=== PATIENT | female | born 1930 | race Caucasian/White ===

== ENCOUNTER 2019-03-21 21:18 | Inpatient (IN) ==
[2019-03-21] MEDS ORDERED: Aspirin 81 MG TAB.CHEW PO STA (21:30)
--- NOTE | 2019-03-21 21:31 | Emergency Department Note ---
Disposition Clinical Impression: Non-STEMI (non-ST elevated myocardial infarction) Disposition: Admitted As Inpatient Condition: Fair Time of Disposition: 02:41 Chest Pain HPI - General Chief Complaint: ED Chest Pain Stated Complaint: CHEST PAIN Time Seen by Provider: 03/21/19 21:29 Source: patient, family Mode of arrival: ambulatory Limitations: no limitations Nursing Notes Reviewed: Yes - History of Present Illness HPI Narrative: 88-year-old female past medical history of thyroid disease, cardiac bypass, cardiac catheterization at this facility one year ago by Dr. Sonia Salinas has been experiencing intermittent chest pain since her cardiac catheterization states that she is now experiencing the worst chest pain that she has ever felt, noted that she had chest pain last night which spontaneously resolved but said 3 recurring episodes today and current episode for the past 2 hours 10 out of 10 substernal sharp chest pain radiating into bilateral upper extremities associated with shortness of breath lightheadedness and dizziness and headache. Patient states the headache and dizziness has since subsided but the chest pain is unrelenting. Patient states she has noticed shortness of breath the past 2 days specifically with exertion. Patient has had no recent illnesses, she states she felt nausea earlier but did not vomit, patient took an 81 mg aspirin prior to presentation to ED but did not take nitroglycerin. No other concerns or complaints at this time. Pt complaint: chest pain Onset (ago): hour(s) Duration: constant Onset: during rest Pain Location: substernal Severity: severe Severity scale (1-10): 10 Quality: sharp Pain Radiation: RUE, LUE Improves with: nothing Worsens with: exertion Associated symptoms: Reports: nausea, diaphoresis, dyspnea Treatments prior to arrival chest pain: aspirin - Related Data Home Medications Medication Instructions Recorded Confirmed Alprazolam [Xanax] 0.5 mg PO DAILY PRN 09/13/15 03/22/19 Aspirin [Adult Low Dose Aspirin EC] 81 mg PO DAILY 09/13/15 03/22/19 Esomeprazole Magnesium [Nexium] 40 mg PO DAILY 09/13/15 03/22/19 Furosemide [Lasix] 20 mg PO DAILY PRN 09/13/15 03/22/19 Levothyroxine [Synthroid] 50 mcg PO 0630 09/13/15 03/22/19 Previous Rx's Medication Instructions Recorded Carvedilol [Coreg] 6.25 mg PO BIDWM #60 tablet 12/17/15 Clopidogrel [Plavix] 75 mg PO DAILY #30 tablet 09/14/15 Lisinopril [Zestril] 40 mg PO DAILY tablet 09/14/15 Allergies Allergy/AdvReac Type Severity Reaction Status Date / Time Tetanus Vaccines and Toxoid Allergy Anaphylaxis Verified 08/29/15 09:08 [Tetanus Vaccines & Toxoid] venom-honey bee Allergy Anaphylaxis Verified 08/29/15 09:08 [bee venom (honey bee)] atorvastatin [From Lipitor] AdvReac Muscle Pain Verified 09/13/15 08:54 Review of Systems: *See History of Present Illness for more detail Constitutional: Denies: fever, chills Cardiovascular: Admits: chest pain with radiation to bilateral upper extremities. Respiratory: Admits: dyspnea denies: cough, hemoptysis Gastrointestinal: Admits to recent nausea Denies: abdominal pain, vomiting Musculoskeletal: Denies: back pain, neck pain Neurological: Denies: headache, weakness, lightheadedness/dizziness, numbness, paresthesias, difficulty with ambulation. Endocrine: Denies: fatigue All systems ED: reviewed and negative except as stated. Review of Systems: As Per HPI Chest Pain PMH - Past Medical History Medical history: Reports: arthritis, coronary artery disease, hyperlipidemia, hypertension, thyroid disease Surgical history: Reports: coronary bypass (CABG) Psychiatric history: Reports: no psych history - Social History Smoking Status: Former smoker Alcohol use: Reports: none Drug use: Reports: none Physical Exam Constitutional: Patient is in moderate distress due to pain, otherwise she is [id number], engaged to conversation, speech is fluid, answers questions appropriately Neuro: GCS 15, no overt focal neurological deficits Head: Atraumatic, normocephalic Eyes: Pupils equal, round and reactive to light, no scleral icterus, no conjunctival injection Neck: Trachea midline without deviation. Anterior neck is supple without swelling. *Chest: Symmetric chest wall rise *Heart: Cardiac rhythm and rate are regular with S1 and S2 , no S3 or S4 appreciated, no murmurs, gallops, rubs, or clicks. *Lungs: Lungs are clear to auscultation bilaterally, without accessory muscle use or prolonged expiratory phase. No wheezes, rhonchi or stridor appreciated. Abdomen: Abdomen is flat, soft to palpation, normal bowel sounds. No abdominal bruit auscultated. Non-distended, non-rigid, no organomegaly, no ascites appreciated. No pulsatile mass, no tenderness or guarding to palpation in all four quadrants, no rebound Extremities: Normal capillary refill without evidence of pedal edema, joint swelling or erythema. Pulses/motor intact in all 4 extremities. Psychiatric exam: Patient displays a normal affect and mood for the environment. No overt signs of hallucination. Integumentary: warm, dry, intact, normal color. No rash, cyanosis, diaphoresis, erythema, or pallor - General Limitations: no limitations General appearance: alert, in distress Course Course Narrative: Patient heart score is 8 at baseline Concern for ACS, CBC, BMP, chest x-ray, troponin, EKG/old EKG Treatments: Aspirin and nitroglycerin for cardiac prophylaxis and management of patient's pain. We will give further pain medications for unrelenting pain or headache associated with nitroglycerin administered. - Reevaluation(s) Reevaluation #1: Patient found to have elevated troponin 0.21 Patient was given 3 nitroglycerin in the ED with significant relief for her pain from 10 out of 10-5 out of 10 Patient states that pain gradually became 10 out of 10 again Patient states pain is now radiating to her back. We will give 0.[address] dissection study with orders for low-dose heparin pending negative dissection study. Time: 22:32 Vital Signs Temperature 98 F 03/21/19 21:23 Pulse Rate 66 03/21/19 21:23 Respiratory Rate 16 03/21/19 21:23 Blood Pressure 188/82 03/21/19 21:23 O2 Sat by Pulse Oximetry 99 03/21/19 21:23 Temperature 97.7 F 03/22/19 02:11 Pulse Rate 76 03/22/19 02:11 Respiratory Rate 18 03/22/19 02:11 Blood Pressure 153/90 03/22/19 02:11 O2 Sat by Pulse Oximetry 92 03/22/19 02:11 Oxygen Delivery Oxygen Delivery Room Air Chest Pain - MDM Narrative Medical decision making narrative: Patient heart score is 10 Patient with elevated troponin having NSTEMI. EKG, laboratory and imaging results are otherwise unremarkable for acute pathology. Patient started on nitroglycerin and heparin drip in the ED Patient will be admitted to hospital medicine service for further evaluation and management of non-ST segment elevated myocardial infarction. Patient and her family at bedside verbalized understanding and agreement of this plan. The patient is hemodynamically stable time of admission. - Lab Data Lab results reviewed: Yes I reviewed the patient's lab results. Result diagrams: 03/21/19 21:35 03/21/19 21:35 Lab Results 03/21/19 03/21/19 03/21/19 Range/Units 21:35 21:35 21:35 WBC 8.6 (4.3-11.1) K/mcL RBC 3.93 (3.82-4.97) M/mcL Hgb 12.4 (11.5-15.4) g/dL Hct 37.7 (35.3-44.9) % MCV 95.9 (83.0-100.0) fL MCH 31.6 (28.0-33.3) pg MCHC 32.9 (31.6-35.5) g/dL RDW 12.6 (11.5-14.5) % Plt Count 219 (140-400) K/mcL MPV 12.2 (9.4-12.4) fL Immature Gran % 0.2 (0-4) % Seg Neutrophils % 56.0 % Lymphocytes % 31.7 % Monocytes % 8.9 % Eosinophils % 2.1 % Basophils % 1.1 % Neutrophils # 4.8 (1.6-8.9) K/mcL Lymphocytes # 2.7 (0.6-4.6) K/mcL Monocytes # 0.8 (0.0-1.3) K/mcL Eosinophils # 0.2 (0.0-0.6) K/mcL Basophils # 0.1 (0.0-0.2) K/mcL PT 11.8 (9.4-12.1) Seconds INR 1.0 Heparin Anti-Xa, Unfract 0.01 L (0.30-0.70) IU/mL Sodium 144 (136-145) mEq/L Potassium 3.3 L (3.5-5.1) mEq/L Chloride 107 (98-107) mEq/L Carbon Dioxide 28 (23-29) mEq/L BUN 17 (8-23) mg/dL Creatinine 1.04 (0.60-1.20) mg/dL Est GFR ( Amer) > 60 (> 60) Est GFR (Non-Af Amer) 50 L (> 60) BUN/Creatinine Ratio 16 (6-26) Glucose 119 H (70-105) mg/dL Calculated Osmolality 301 H (280-300) Calcium 9.9 (8.6-10.3) mg/dL Troponin I 0.21 H* (< 0.04) ng/mL - Radiology Data Radiology results reviewed: Yes I reviewed the patient's radiology results. Chest X-Ray 03/21/19 21:30 IMPRESSION: No acute disease. Hiatal hernia. D/ / Cyril Salas MD / Cyril Salas MD Interpreting Provider: Cyril Salas MD Dissection 03/21/19 22:30 IMPRESSION: No evidence of aortic dissection or aneurysm. There is mild atherosclerotic plaque in the thoracic aorta and abdominal aorta not unusual for a patient of this age. Cholelithiasis and choledocholithiasis. There are 3 small adjacent calculi in a linear configuration in the distal common bile duct. The gallbladder is moderately dilated. There is minimal bile duct dilatation. Follow-up ERCP would be helpful. Large hiatal hernia. Status post CABG. D/ / Charles Goodson MD / Charles Goodson MD Interpreting Provider: Charles Goodson MD - EKG Data EKG attestation: Yes I reviewed and interpreted this EKG. EKG results narrative: The patient's EKG shows a sinus rhythm with a prolonged CA interval at a heart rate with computer evaluation of 66 bpm, CA interval of 300 ms, QRS duration 86 ms, QT/QTc interval 422/443 ms respectively, there are significant ST segment depressions noted in lead V2 which appear isolated to this lead but are at least 2-3 mm in depth, there are no reciprocal ST segment depressions, there are no pathologic Q waves, there are abnormal T-wave inversions noted in lead 3, which may be a normal variant and appear to be consistent with prior EKG. EKG p erformed today is generally consistent with prior EKG performed on 09/13/2011. Due to concern of improper lead placement we will repeat this EKG. Repeat EKG shows sinus rhythm, the ST segment depressions in V3 are resolved and this new EKG, all other factors are consistent with those documents above, still no signs of acute ischemic change. Heart Score - Score History: Highly Suspicious EKG: Significant ST-Depression Age: Greater than 65 Risk Factors: Equal/Greater than 3 risk factor or history of atherosclerotic disease Troponin: Greater than 3x normal limit HEART Score Total: 10
[2019-03-21 21:47] LABS: Basophils # 0.1 K/mcL (0.0-0.2); Basophils % 1.1 %; Eosinophils # 0.2 K/mcL (0.0-0.6); Eosinophils % 2.1 %; Hematocrit 37.7 % (35.3-44.9); Hemoglobin 12.4 g/dL (11.5-15.4); Immature Granulocytes % 0.2 % (0-4); Lymphocytes # 2.7 K/mcL (0.6-4.6); Lymphocytes % 31.7 %; Mean Corpuscular HGB Conc 32.9 g/dL (31.6-35.5); Mean Corpuscular Hemoglobin 31.6 pg (28.0-33.3); Mean Corpuscular Volume 95.9 fL (83.0-100.0); Mean Platelet Volume 12.2 fL (9.4-12.4); Monocytes # 0.8 K/mcL (0.0-1.3); Monocytes % 8.9 %; Neutrophils # 4.8 K/mcL (1.6-8.9); Platelet Count 219 K/mcL (140-400); Red Blood Count 3.93 M/mcL (3.82-4.97); Red Cell Distribution Width 12.6 % (11.5-14.5); White Blood Count 8.6 K/mcL (4.3-11.1)
[2019-03-21 21:54] LABS: Prothrombin Time 11.8 Seconds (9.4-12.1)
[2019-03-21] MEDS: Nitroglycerin 0.4 MG TAB.SUBL SL SCH ×3 (22:00→22:10)
[2019-03-21 22:09] LABS: BUN/Creatinine Ratio 16 (6-26); Blood Urea Nitrogen 17 mg/dL (8-23); Calcium 9.9 mg/dL (8.6-10.3); Carbon Dioxide 28 mEq/L (23-29); Chloride 107 mEq/L (98-107); Glucose 119 mg/dL (70-105); Osmolality,Calculated 301 (280-300); Potassium 3.3 mEq/L (3.5-5.1); Sodium 144 mEq/L (136-145); eGFR For African Americans > 60 (> 60); eGFR For Non-African Americans 50 (> 60)
[2019-03-21 22:16] LABS: Troponin I 0.21 ng/mL (< 0.04)
[2019-03-21] MEDS ORDERED: *HR* Heparin 5,000 UNIT/ML VIAL IVP PRN ×2 (22:30)
[2019-03-21] MEDS ORDERED: Isovue-370 500 ML BOTTLE IVP ONE (22:30)
[2019-03-21] MEDS ORDERED: *HR* Heparin 5,000 UNIT/ML VIAL IVP ONE (22:30)
[2019-03-21] MEDS ORDERED: Heparin 25,000 UNIT/250 ML D5W 25,000 UNIT/250 ML IV.SOLN IVC SCH (22:30)
[2019-03-21] MEDS ORDERED: *HR* HYDROmorphone (PF) 1 MG/ML SYRINGE IVP ONE (22:32)
[2019-03-21 23:19] LABS: Heparin anti-factor XA UFH 0.01 IU/mL (0.30-0.70)
[2019-03-22] MEDS ORDERED: Nitroglycerin 25 MG/250 ML INFUS..BTL IVC SCH (00:15)
--- NOTE | 2019-03-22 00:44 | Emergency Department Note ---
Disposition Clinical Impression: Non-STEMI (non-ST elevated myocardial infarction) Disposition: Admitted As Inpatient Condition: Fair Referrals: Teofilo Alcantara MD [Primary Care Provider] - Forms: ED Satisfaction Letter Time of Disposition: 00:30 General Adult HPI - General Chief complaint: ED Chest Pain Stated complaint: CHEST PAIN Time Seen by Provider: 03/21/19 21:29 Source: patient, family Mode of arrival: ambulatory Limitations: no limitations Nursing Notes Reviewed: Yes Vital Signs Reviewed: Yes - History of Present Illness Pain Scale: 5 - Related Data Home Medications Medication Instructions Recorded Confirmed Alprazolam [Xanax] 0.5 mg PO DAILY PRN 09/13/15 07/28/18 Aspirin [Adult Low Dose Aspirin EC] 81 mg PO DAILY 09/13/15 07/28/18 Esomeprazole Magnesium [Nexium] 40 mg PO DAILY 09/13/15 07/28/18 Furosemide [Lasix] 20 mg PO DAILY PRN 09/13/15 07/28/18 Levothyroxine [Synthroid] 50 mcg PO 0630 09/13/15 07/28/18 Potassium Chloride [Klor-Con 10 meq PO DAILY 09/13/15 07/28/18 Sprinkle] Vitamin D3/Folic Acid [Ortho D 2,000 each PO DAILY 09/13/15 07/28/18 3,775 Unit-1 mg Cap] Previous Rx's Medication Instructions Recorded Carvedilol [Coreg] 6.25 mg PO BIDWM #60 tablet 09/14/15 Clopidogrel [Plavix] 75 mg PO DAILY #30 tablet 09/14/15 Levothyroxine [Synthroid] 50 mcg PO 0630 tablet 09/14/15 Lisinopril [Zestril] 40 mg PO DAILY tablet 09/14/15 Nitroglycerin [Nitrostat] 0.4 mg SL PRN PRN #30 tab.subl 09/14/15 Allergies Allergy/AdvReac Type Severity Reaction Status Date / Time Tetanus Vaccines and Toxoid Allergy Anaphylaxis Verified 08/29/15 09:08 [Tetanus Vaccines & Toxoid] venom-honey bee Allergy Anaphylaxis Verified 08/29/15 09:08 [bee venom (honey bee)] atorvastatin [From Lipitor] AdvReac Muscle Pain Verified 09/13/15 08:54 Past Medical History - Past Medical History Medical history: Reports: arthritis, coronary artery disease, hyperlipidemia, hypertension, thyroid disease Surgical history: Reports: coronary bypass (CABG) Psychiatric history: Reports: no psych history - Social History Smoking Status: Former smoker Smokeless Tobacco Status: No Alcohol use: Reports: none Drug use: Reports: none Physical Exam - General Limitations: no limitations General appearance: alert, in distress Course Vital Signs Temperature 98 F 03/21/19 21:23 Pulse Rate 66 03/21/19 21:23 Respiratory Rate 16 03/21/19 21:23 Blood Pressure 188/82 03/21/19 21:23 O2 Sat by Pulse Oximetry 99 03/21/19 21:23 Temperature 98 F 03/21/19 21:23 Pulse Rate 72 03/22/19 00:50 Respiratory Rate 12 03/22/19 00:50 Blood Pressure 150/80 03/22/19 00:50 O2 Sat by Pulse Oximetry 93 03/22/19 00:50 Oxygen Delivery Oxygen Delivery Room Air Medical Decision Making - Medical Records Medical records reviewed: Yes I reviewed the patient's medical records. - Lab Data Lab results reviewed: Yes I reviewed the patient's lab results. Result diagrams: 03/21/19 21:35 03/21/19 21:35 Lab Results 03/21/19 03/21/19 03/21/19 Range/Units 21:35 21:35 21:35 WBC 8.6 (4.3-11.1) K/mcL RBC 3.93 (3.82-4.97) M/mcL Hgb 12.4 (11.5-15.4) g/dL Hct 37.7 (35.3-44.9) % MCV 95.9 (83.0-100.0) fL MCH 31.6 (28.0-33.3) pg MCHC 32.9 (31.6-35.5) g/dL RDW 12.6 (11.5-14.5) % Plt Count 219 (140-400) K/mcL MPV 12.2 (9.4-12.4) fL Immature Gran % 0.2 (0-4) % Seg Neutrophils % 56.0 % Lymphocytes % 31.7 % Monocytes % 8.9 % Eosinophils % 2.1 % Basophils % 1.1 % Neutrophils # 4.8 (1.6-8.9) K/mcL Lymphocytes # 2.7 (0.6-4.6) K/mcL Monocytes # 0.8 (0.0-1.3) K/mcL Eosinophils # 0.2 (0.0-0.6) K/mcL Basophils # 0.1 (0.0-0.2) K/mcL PT 11.8 (9.4-12.1) Seconds INR 1.0 Heparin Anti-Xa, Unfract 0.01 L (0.30-0.70) IU/mL Sodium 144 (136-145) mEq/L Potassium 3.3 L (3.5-5.1) mEq/L Chloride 107 (98-107) mEq/L Carbon Dioxide 28 (23-29) mEq/L BUN 17 (8-23) mg/dL Creatinine 1.04 (0.60-1.20) mg/dL Est GFR ( Amer) > 60 (> 60) Est GFR (Non-Af Amer) 50 L (> 60) BUN/Creatinine Ratio 16 (6-26) Glucose 119 H (70-105) mg/dL Calculated Osmolality 301 H (280-300) Calcium 9.9 (8.6-10.3) mg/dL Troponin I 0.21 H* (< 0.04) ng/mL - Radiology Data Radiology results reviewed: Yes I reviewed the patient's radiology results. Chest X-Ray 03/21/19 21:30 IMPRESSION: No acute disease. Hiatal hernia. D/ / Cyril Salas MD / Cyril Slaas MD Interpreting Provider: Cyril Salas MD Dissection 03/21/19 22:30 IMPRESSION: No evidence of aortic dissection or aneurysm. There is mild atherosclerotic plaque in the thoracic aorta and abdominal aorta not unusual for a patient of this age. Cholelithiasis and choledocholithiasis. There are 3 small adjacent calculi in a linear configuration in the distal common bile duct. The gallbladder is moderately dilated. There is minimal bile duct dilatation. Follow-up ERCP would be helpful. Large hiatal hernia. Status post CABG. D/ / Charles Goodson MD / Charles Goodson MD Interpreting Provider: Charles Goodson MD - EKG Data EKG #1 EKG attestation: Yes I reviewed and interpreted this EKG. EKG results narrative: EKG obtained at 11:27 shows sinus rhythm with first-degree AV block. Ventricular rate 66. There is isolated ST segment depression in lead V3 only. No ectopy. EKG #2 EKG attestation: Yes I reviewed and interpreted this EKG. EKG results narrative: Repeat EKG obtained at 22:06 shows sinus rhythm with first-degree block. The isolated ST depression in V3 is not present and was likely artifact. Otherwise no significant acute ST segment elevation or depression noted. Critical Care Time Critical Care Time: Yes Total Critical Care Time: 45 Attestation: Critical care performed: Time is exclusive of separately billable procedures. Time includes: direct patient care, patient reassessment, coordination of patient care, interpretation of data (laboratory data, radiology data, and respiratory data), review of patient's medical records, medical consultation and documentation of patient care. Procedures included in critical care time: Procedures excluded from critical care time: Attestation Statement - Attestation Attestation: I, Ti Borrego MD, personally evaluated this patient and discussed their management with the resident physician. I reviewed the resident's note and agree with the documented findings, medical decision making, and plan of care. I reviewed the residents documentation and agree with the residents assessment and plan of care. I have personally had face to face time with the patient. I personally supervised and was present for the healy/critical portions of the following procedures completed by the resident: EKG interpretation. 88-year-old female presents to the emergency department with a complaint of substernal chest pain off and on for the past month. The pain seems to be worse with exertion. It is been worse over the past few days and became much worse this evening several hours prior to arrival. She states that she has episodes of this pain but it usually goes away after a while. She has had 3 episodes today but the episode this evening did not seem to want to go away. She did not take any nitroglycerin at home. She did take one low-dose aspirin. Patient rated the pain a 10 out of 10. It radiated to both arms with some shortness of breath and diaphoresis. Some nausea but no vomiting. No palpitations. No syncope. She does have a cardiac history and had CABG 2005 and had a stent placed in 2014. On examination patient is a well-developed well-nourished well-appearing elderly female in no acute distress. She is alert and oriented 3. There is no cyanosis or diaphoresis. At time of my examination she rates the chest pain a 10 but does not appear to be in any significant discomfort. Chest is nontender to palpation. Breath sounds are clear and equal bilaterally. Heart regular rate and rhythm. Abdomen is soft and nontender with normal bowel sounds. Patient received aspirin and nitroglycerin here in the emergency department with significant improvement in her chest pain. She rated the pain down to a fiberglass but then after a while the pain worsened again and went back to a 10. She states the pain radiates to her back now. EKG obtained at 21:27 shows sinus rhythm with first-degree AV block. Ventricular rate 66. There is isolated ST segment depression in lead V3 only. No ectopy. Repeat EKG obtained at 22:06 shows sinus rhythm with first-degree block. The isolated ST depression in V3 is not present and was likely artifact. Otherwise no significant acute ST segment elevation or depression noted. Chest x-ray showed a hiatal hernia but otherwise negative. CTA dissection study showed no evidence of aneurysm or dissection. It did show cholelithiasis and choledocholithiasis. Labs reviewed. Troponin 0.21. Patient was placed on heparin infusion. She was also started on a nitroglycerin drip. The hospitalist, Dr. Funez, was consulted and accepted admission of the patient.
[2019-03-22] MEDS ORDERED: Naloxone 0.4 MG/ML INJ IVP PRN ×3 (02:05→17:58)
[2019-03-22] MEDS ORDERED: Ondansetron 4 MG/2 ML VIAL IVP PRN ×2 (02:05→17:58)
[2019-03-22] MEDS ORDERED: Furosemide 20 MG TABLET PO PRN ×2 (02:12→17:58)
[2019-03-22] MEDS ORDERED: 0.9 % Sodium Chloride 1,000 ML IVC SCH (02:15)
[2019-03-22] MEDS ORDERED: Potassium Chloride 40 MEQ, Lidocaine 1% 2 ML in D5% in Water 500 ML IVPB ONE (02:25)
--- NOTE | 2019-03-22 02:31 | Internal Med History&Physical ---
Date of Encounter: 03/22/19 Time of Encounter: 02:14 Internal Medicine - H&P: HPI Chief complaint: Chest pain History of present illness: Ms. Bansal is a 88 year old female with a past medical history of coronary artery disease status post CABG in 2005 who presented to the ED with complaints of chest pain. Patient reports that chest pain began last night. Pain desc ribed as pressure-like radiating across the entire chest from shoulder to shoulder and to her back. Pain was 10 out of 10 in intensity aggravated with deep inspiration. Patient does note some shortness of breath associated with her pain. Arrival patient was mildly hypotensive with initial blood pressure of 188/82. Heart rate in the 60s to 70s. Laboratory workup notable for a elevated troponin of 0.21. EKG showed sinus rhythm the absence of any ST or T-wave changes concerning for ischemia. Given her reports of pain radiating to her back and her hypertension a CT dissection study was performed which was negative for aortic dissection. It did show evidence of cholelithiasis with a moderately dilated gallbladder and choledocholithiasis Patient was given 3 doses of nitroglycerin in the ED which helped somewhat. Loading dose of aspirin was given and patient was started on a heparin drip. Given lack of resolution of her chest pain, patient was started on a nitro drip. Past Med Surg Social Fam HX - Past Medical History Medical history: arthritis, coronary artery disease, hyperlipidemia, hypertension, thyroid disease Additional medical history: SLEEP APNEA, ANEMIA, CATARACTS, Psychiatric history: no psych history - Past Surgical History Surgical History: coronary bypass (CABG) Additional surgical history: BUNIONECTOMY, CSECTION X2, LEFT ARM SURGERY, RIGHT FOOT SURGERY, TRIPLE BYPASS November 2005, - Social History Smoking Status: Former smoker Smokeless Tobacco Status: No Alcohol use: none Drug use: none - Family History Mother Hx Family Cardiac Disorders: Yes (CHF) Father Living Status: Internal Medicine - H&P: Meds Alprazolam [Xanax] 0.5 mg PO DAILY PRN 09/13/15 [History] Aspirin [Adult Low Dose Aspirin EC] 81 mg PO DAILY 09/13/15 [History] Esomeprazole Magnesium [Nexium] 40 mg PO DAILY 09/13/15 [History] Furosemide [Lasix] 20 mg PO DAILY PRN 09/13/15 [History] Levothyroxine [Synthroid] 50 mcg PO 0630 09/13/15 [History] Carvedilol [Coreg] 6.25 mg PO BIDWM #60 tablet 09/14/15 [Rx] Clopidogrel [Plavix] 75 mg PO DAILY #30 tablet 09/14/15 [Rx] Lisinopril [Zestril] 40 mg PO DAILY tablet 09/14/15 [Rx] Allergy/AdvReac Type Severity Reaction Status Date / Time Tetanus Vaccines and Toxoid Allergy Anaphylaxis Verified 08/29/15 09:08 [Tetanus Vaccines & Toxoid] venom-honey bee Allergy Anaphylaxis Verified 08/29/15 09:08 [bee venom (honey bee)] atorvastatin [From Lipitor] AdvReac Muscle Pain Verified 09/13/15 08:54 All Systems PM: A 10-system review of systems was performed and is negative for pertinent findings except as documented above in the HPI. - Constitutional Constitutional: no chills, no fever(s), no night sweats - EENT Eyes: no change in vision, no discharge, no pain, no photophobia Ears: no ear discharge, no ear pain, no tinnitus Nose, mouth and throat: no dysphagia, no nasal discharge, no neck pain, no sore throat - Cardiovascular Cardiovascular ROS IM: no chest pain, no diaphoresis, no dyspnea, no lightheadedness, no palpitations, no syncope - Respiratory Respiratory: no cough, no dyspnea, no wheezing, no excessive phlegm production - Gastrointestinal Gastrointestinal: no abdominal pain, no diarrhea, no hematemesis, no hematochezia, no melena, no nausea, no vomiting - Genitourinary Genitourinary: no change in urinary stream, no dysuria, no flank pain, no hematuria - Musculoskeletal Musculoskeletal ROS IM: no numbness, no tingling - Integumentary Integumentary IM: no rash, no unusual bruising - Neurological Neurological ROS: no confusion, no convulsions, no focal weakness, no numbness, no tingling, no tremor(s) - Hematologic/Lymphatic Hematologic/Lymphatic: no easy bruising - Constitutional Vitals: Temp Pulse Resp BP Pulse Ox 98 F 72 12 115/95 93 03/21/19 21:23 03/22/19 00:50 03/22/19 00:50 03/22/19 01:58 03/22/19 00:50 Exam: General: Alert and oriented 3 Skin:Normal color, no rash, no lesions. HEENT:EOM, pupils equal, round and reactive. Cardiovascular:Normal S1 & S2, no rubs, murmurs or gallops. No JVD. Pulse regular. Lungs: Diminished breath sounds at the bases Abdomen:Soft, non-tender, no rigidity. Extremities:No deformity, no edema or tenderness, no joint swelling or clubbing. Neurological:Normal cognition and motor skills. Pulses:Carotid and radial pulses normal +2. Rest of the physical exam is non contributory Internal Med - H&P Results - Labs CBC & Chem 7: 03/21/19 21:35 03/21/19 21:35 Labs: Short CBC 03/21/19 Range/Units 21:35 WBC 8.6 (4.3-11.1) K/mcL Hgb 12.4 (11.5-15.4) g/dL Hct 37.7 (35.3-44.9) % Plt Count 219 (140-400) K/mcL Neutrophils # 4.8 (1.6-8.9) K/mcL BMP 03/21/19 21:35 Sodium 144 Potassium 3.3 L Chloride 107 Carbon Dioxide 28 BUN 17 Creatinine 1.04 Glucose 119 H Calcium 9.9 Cardiac Enzymes 03/21/19 Range/Units 21:35 Troponin I 0.21 H* (< 0.04) ng/mL - Impressions ITS Impressions Chest X-Ray 03/21/19 21:30 IMPRESSION: No acute disease. Hiatal hernia. D/ / Cyril Salas MD / Cyril Salas MD Interpreting Provider: Cyril Salas MD Dissection 03/21/19 22:30 IMPRESSION: No evidence of aortic dissection or aneurysm. There is mild atherosclerotic plaque in the thoracic aorta and abdominal aorta not unusual for a patient of this age. Cholelithiasis and choledocholithiasis. There are 3 small adjacent calculi in a linear configuration in the distal common bile duct. The gallbladder is moderately dilated. There is minimal bile duct dilatation. Follow-up ERCP would be helpful. Large hiatal hernia. Status post CABG. D/ / Charles Goodson MD / Charles Goodson MD Interpreting Provider: Charles Goodson MD - Assessment and Plan (1) Non-STEMI (non-ST elevated myocardial infarction) Current Visit: Yes Status: Acute Assessment and plan: Patient presenting with atypical chest pain described as pressure-like radiating across the chest into the back with a pleuritic component associated with some shortness of breath. Significant history of three-vessel disease status post CABG. Found to have a elevated troponin of 0.21. EKG shows normal sinus rhythm in the absence of any ST or T-wave changes concerning for ischemia. Patient was started on a heparin drip as well as a nitro drip due to persistent chest pain. Loading dose of aspirin was given. Shortly after arrival to the floor chest pain remained 10 out of 10 in intensity. Repeat EKG did show flattening of T waves compared to previous EKG. Patient is currently on Plavix as well as a beta jeremie. Reported allergy to atorvastatin. -Telemetry -Trend troponin -Continue heparin drip and nitro drip -We will give morphine as needed for pain control -Continue aspirin, Plavix, beta jeremie. -Echocardiogram in the morning -We will keep patient NPO -Consult cardiology (2) CAD (coronary artery disease) Current Visit: No Status: Acute Assessment and plan: History of coronary artery disease status post CABG in 2005. Patient had drug- eluting stent placed in the proximal SVG to OM graft in 2014. Echocardiogram in 2014 showing an EF of 55-60% with normal left ventricular size and systolic function. Mild aortic regurgitation. She not currently on atorvastatin due to muscle pain side effect. -Continue aspirin, beta jeremie, Plavix. ROSENDO inhibitor Qualifiers: Coronary Disease-Associated Artery/Lesion type: bypass graft [place] vs. transplanted heart: [place] heart Associated angina: without angina Qualified Code(s): I25.810 - Atherosclerosis of coronary artery bypass graft(s) without angina pectoris (3) Cholelithiasis Current Visit: Yes Status: Acute Assessment and plan: Cholelithiasis noted on CT of the chest with a moderately dilated gallbladder. -We will obtain a right upper quadrant ultrasound in the morning for further evaluation Qualifiers: Qualified Code(s): K80.20 - Calculus of gallbladder without cholecystitis without obstruction (4) Hypertension Current Visit: Yes Status: Acute Assessment and plan: Continue ROSENDO inhibitor Qualifiers: Hypertension type: essential hypertension Qualified Code(s): I10 - Essential (primary) hypertension - Time Spent With Patient Total time spent is greater than 50% in coordination of care (as documented) at patient's floor/unit and/or counseling patient:
[2019-03-22] MEDS: Morphine Sulfate 2 MG/ML SYRINGE IVP PRN ×2 (02:47→10:20)
[2019-03-22 07:39] LABS: Hematocrit 36.4 % (35.3-44.9); Hemoglobin 11.7 g/dL (11.5-15.4); Mean Corpuscular HGB Conc 32.1 g/dL (31.6-35.5); Mean Corpuscular Hemoglobin 31.5 pg (28.0-33.3); Mean Corpuscular Volume 98.1 fL (83.0-100.0); Mean Platelet Volume 12.7 fL (9.4-12.4); Platelet Count 209 K/mcL (140-400); Red Blood Count 3.71 M/mcL (3.82-4.97); Red Cell Distribution Width 12.8 % (11.5-14.5); White Blood Count 9.4 K/mcL (4.3-11.1)
[2019-03-22 07:47] LABS: Heparin anti-factor XA UFH 0.78 IU/mL (0.30-0.70); INR 1.1; Prothrombin Time 12.6 Seconds (9.4-12.1)
[2019-03-22 07:50] LABS: Activated Partial Thrombo Time 105.6 Seconds (26.0-36.0)
[2019-03-22 08:06] LABS: Albumin 3.7 g/dL (3.5-5.7); Albumin/Globulin Ratio 1.6 (1.1-2.2); Bilirubin,Total 0.5 mg/dL (0.3-1.0); Calcium 9.3 mg/dL (8.6-10.3); Globulin 2.3 g/dL (2.4-3.5); Potassium 4.4 mEq/L (3.5-5.1)
--- NOTE | 2019-03-22 08:29 | Cardiology Consult Note ---
<Ramya Albrecht N - Last Filed: 03/22/19 09:29> Date of Encounter: 03/22/19 Time of Encounter: 08:28 Assessment and Plan (1) Non-STEMI (non-ST elevated myocardial infarction) Current Visit: Yes Status: Acute High suspicion for acute myocardial ischemia. Patient reports ongoing 8/10 chest pain with radiation down bilateral arms despite receiving nitroglycerin and heparin gtts. Initial troponin noted to be elevated at 0.21; repeat troponin obtained this morning further elevated at 2.55. At this time, recommend [facility] for further evaluation/intervention. Patient is agreeable to this. Continue heparin and nitroglycerin gtts pending cardiac catheterization. (2) CAD (coronary artery disease) Current Visit: Yes Status: Acute History of CAD s/p CABG x3 in 2005 and C in 2014 with stent placement in proximal SVG to OM graft. Patient is intolerant to statin therapy. Continue aspirin and beta jeremie. Qualifiers: Coronary Disease-Associated Artery/Lesion type: bypass graft [place] vs. transplanted heart: [place] heart Associated angina: with unstable angina Qualified Code(s): I25.700 - Atherosclerosis of coronary artery bypass graft(s), unspecified, with unstable angina pectoris (3) Hypertension Current Visit: Yes Status: Chronic Qualifiers: Hypertension type: essential hypertension Qualified Code(s): I10 - Essential (primary) hypertension Discussion w patient/family: The assessment and plan as outlined above was discussed with the patient and/or family members who expressed understanding and agreement. All questions were answered. Thank you for involving us in the care of your patient. Please call with any questions. History of Present Illness Consult date: 03/22/19 Requesting physician: Vanessa Funez Consult reason: NSTEMI Chief complaint: Chest pain History of present illness: Ms. Bansal is a 88 year old female with a history of CAD s/p CABG x3 in 2005 and [facility] s/p stent placement in 2014, hyperlipidemia, hypetension, hypothyroidi sm, and sleep apnea who presented to the ED last night for evaluation of chest pain. Patient states that she has been having intermittent chest pain for several months, which is worsened with exertion. She was seen in the cardiology outpatient clinic in September 2018, at which time she declined to have cardiac stress testing performed. She was started on imdur; however, she states that this has not improved her pain. She states that her current pain started last night, with a severity of 10/10 that did not improve after use of nitroglycerin. It is associated with shortness of breath and nausea, and radiates down bilateral arms. Laboratory studies were significant for elevated troponin of 0.21. CTA dissection study was performed, which was negative for acute dissection or aneurysm. Patient was started on heparin gtt and nitroglycerin gtt, and was admitted to the hospitalist service for ongoing management. Cardiology consult ordered for recommendations regarding NSTEMI. Prior cardiac testing: * Echocardiogram 08/29/2015: LVEF 55-60%. Normal LV size and systolic function. Mild aortic regurgitation. No pulmonary hypertension. * Regadenoson Nuclear Stress Test 08/29/2015: Gated LVEF >70%. Mild-moderate ischemia in the mid-apical anterior wall and apex. * C 09/13/2015: There is severe three vessel coronary artery disease. The left ventricle is normal and has normal contractility EF 65%. S/P CABG 3 of 3 patent bypass grafts. Patient had successful PTCA/Drug-Eluting Stent placement in the proximal SVG to OM graft. Past Med Surg Social Fam HX - Past Medical History Medical history: arthritis, coronary artery disease, hyperlipidemia, hypertension, thyroid disease Additional medical history: SLEEP APNEA, ANEMIA, CATARACTS, Psychiatric history: no psych history - Past Surgical History Surgical History: coronary bypass (CABG) Additional surgical history: BUNIONECTOMY, CSECTION X2, LEFT ARM SURGERY, RIGHT FOOT SURGERY, TRIPLE BYPASS November 2005, - Social History Smoking Status: Former smoker Smokeless Tobacco Status: No Alcohol use: none Drug use: none - Family History Mother Hx Family Cardiac Disorders: Yes Father Living Status: Hx Family Cardiac Disorders: Yes Medications and Allergies ALPRAZolam [Xanax 0.5 MG Tablet] 0.5 mg PO DAILY PRN 03/22/19 [History] Aspirin [Adult Aspirin Regimen] 81 mg PO DAILY 03/22/19 [History] Carvedilol [Coreg] 6.25 mg PO BID 03/22/19 [History] Clopidogrel [Plavix] 75 mg PO DAILY 03/22/19 [History] Esomeprazole Magnesium [Nexium] 40 mg PO DAILY 03/22/19 [History] Furosemide [Lasix] 20 mg PO [id number] 03/22/19 [History] Isosorbide MONOnitrate (24 HR) [Imdur] 15 mg PO DAILY 03/22/19 [History] Levothyroxine [Synthroid] 50 mcg PO QAM 03/22/19 [History] Lisinopril [Zestril] 40 mg PO DAILY 03/22/19 [History] Potassium Chloride [K-Tab ER] 10 meq PO BID 03/22/19 [History] Allergy/AdvReac Type Severity Reaction Status Date / Time Tetanus Vaccines and Toxoid Allergy Anaphylaxis Verified 03/22/19 10:27 [Tetanus Vaccines & Toxoid] venom-honey bee Allergy Anaphylaxis Verified 03/22/19 10:27 [bee venom (honey bee)] atorvastatin [From Lipitor] AdvReac MUSCLE Verified 03/22/19 10:27 WEAKNESS All Systems Review: The remainder of the systems were reviewed and are negative - Cardiovascular Cardiovascular: chest pain at rest, chest pain with exertion, dyspnea at rest, dyspnea on exertion, radiating jaw, neck or arm pain, leg edema, no orthopnea, no palpitations, no syncope - Gastrointestinal Gastrointestinal: nausea Physical Examination Vital Signs, Last 4 Hours Temp Pulse Resp BP Pulse Ox 03/22/19 07:29 98.1 F 75 16 139/85 96 03/22/19 04:41 75 17 145/85 95 General: Conversant, Other (Appears uncomfortable secondary to ongoing chest pain) HEENT: Atraumatic, Normocephaly, Mucus Membranes Moist Cardiac: Reg Rate and Rhythm, Other (3/6 diastolic murmur present) Lungs: Normal Breath Sounds, No Wheeze, Rales, Rhonchi Neuro: Alert and responsive, No focal deficits noted Abdomen: Soft, Non-Tender Skin: No rashes noted on visualized skin Musculoskeletal: No Chest Wall Tenderness Extremities: No Clubbing, No Cyanosis, Normal Pulses, Other (bilateral non- pitting LE edema) Results 03/22/19 07:03 03/22/19 07:03 Lab Results 03/21/19 03/21/19 03/21/19 21:35 21:35 21:35 WBC 8.6 Hgb 12.4 Hct 37.7 Plt Count 219 INR 1.0 APTT Sodium 144 Potassium 3.3 L Chloride 107 Carbon Dioxide 28 BUN 17 Creatinine 1.04 Glucose 119 H Calcium 9.9 Total Bilirubin AST ALT Alkaline Phosphatase Troponin I 0.21 H* 03/22/19 03/22/19 03/22/19 07:03 07:03 07:03 WBC 9.4 Hgb 11.7 Hct 36.4 Plt Count 209 INR 1.1 APTT 105.6 H Sodium 141 Potassium 4.4 D Chloride 105 Carbon Dioxide 26 BUN 16 Creatinine 1.06 Glucose 229 H Calcium 9.3 Total Bilirubin 0.5 AST 28 ALT 10 Alkaline Phosphatase 49 Troponin I 03/22/19 07:03 WBC Hgb Hct Plt Count INR APTT Sodium Potassium Chloride Carbon Dioxide BUN Creatinine Glucose Calcium Total Bilirubin AST ALT Alkaline Phosphatase Troponin I 2.55 H* Consult Discharge Plan - Plan Referrals: Teofilo Alcantara MD [Primary Care Provider] - <Chencho Hernandez - Last Filed: 03/22/19 11:45> Date of Encounter: 03/22/19 - Attending Attestation Patient was seen and evaluated independently by me. Findings, assessment and plan were discussed at length with patient, questions answered. Agree with nurse practitioner's/resident's documentation. Addition as follows, 88 yoCF ho CABGx3, then ORA-SVG-OM 2014 for abn stress test ([facility] 3/3 patent grafts), chronic angina, LVEF 55-60% 2015, HTN, HLD, hypothyroidism. P/w moderate to severe angina after mild exertion 12 hrs, constant with partial relief by NTG, mild dyspnea. ECG STD V3-4 on admission, new mild STE0.5mm I/l 3rd ECG. Trop peak 2.5. Tele no events Mild BP elevation, RA to NC O2 2L, CTA B/L, RR, no M/G/R, no LE edema No anemia or EDIS. No surgery planned, no bleeding diathesis, no IV contrast allergy. A: NSTEMI, type I likely Chronic angina, class II-III CAD s/p CABGx3, ORA-SVG-OM 2014 with 3/3 patent grafts Ho muscle pain to lipitor P: LHC c/w heparin drip, DAPT, BB, ACEi discuss alternative statins (crestor, pravastatin etc) TTE Chencho Hernandez MD, PhD Assessment and Plan Discussion w patient/family: The assessment and plan as outlined above was discussed with the patient and/or family members who expressed understanding and agreement. All questions were answered. Thank you for involving us in the care of your patient. Please call with any questions. History of Present Illness History of present illness: Ms. Bansal is a 88 year old female All Systems Review: The remainder of the systems were reviewed and are negative Physical Examination Vital Signs, Last 4 Hours Temp Pulse Resp BP Pulse Ox 03/22/19 07:29 98.1 F 75 16 139/85 96 Results 03/22/19 07:03 03/22/19 07:03 Lab Results 03/21/19 03/21/19 03/21/19 21:35 21:35 21:35 WBC 8.6 Hgb 12.4 Hct 37.7 Plt Count 219 INR 1.0 APTT Sodium 144 Potassium 3.3 L Chloride 107 Carbon Dioxide 28 BUN 17 Creatinine 1.04 Glucose 119 H Calcium 9.9 Total Bilirubin AST ALT Alkaline Phosphatase Troponin I 0.21 H* 03/22/19 03/22/19 03/22/19 07:03 07:03 07:03 WBC 9.4 Hgb 11.7 Hct 36.4 Plt Count 209 INR 1.1 APTT 105.6 H Sodium 141 Potassium 4.4 D Chloride 105 Carbon Dioxide 26 BUN 16 Creatinine 1.06 Glucose 229 H Calcium 9.3 Total Bilirubin 0.5 AST 28 ALT 10 Alkaline Phosphatase 49 Troponin I 03/22/19 03/22/19 07:03 09:42 WBC Hgb Hct Plt Count INR APTT Sodium Potassium Chloride Carbon Dioxide BUN Creatinine Glucose Calcium Total Bilirubin AST ALT Alkaline Phosphatase Troponin I 2.55 H* 4.24 H*
[2019-03-22] MEDS ORDERED: Lisinopril 20 MG TABLET PO SCH (09:00)
[2019-03-22] MEDS ORDERED: Aspirin Enteric Coated 81 MG Tablet PO SCH (09:00)
[2019-03-22] MEDS ORDERED: ALPRAZolam 0.5 MG TABLET PO PRN ×2 (10:45→17:58)
[2019-03-22] MEDS ORDERED: ISOVUE-370 200 ML INFUS..BTL ONE ×3 (10:46→12:46)
[2019-03-22] MEDS ORDERED: *HR* Heparin 10,000 UNIT/10 ML VIAL ONE ×2 (10:46→12:46)
[2019-03-22] MEDS ORDERED: 0.9 % Sodium Chloride 1,000 ML ONE ×3 (10:46→12:46)
[2019-03-22] MEDS ORDERED: Heparin 1,000 UNITS/500 mL 500 ML ONE ×3 (10:46→13:01)
[2019-03-22] MEDS ORDERED: Nitroglycerin 1,000 MCG/10 ML VIAL IV ONE ×2 (10:46→12:46)
--- NOTE | 2019-03-22 10:50 | Event Note ---
Date of Encounter: 03/22/19 Time of Encounter: 08:20 patient as seen and examined at bedside. continue to complain of chest pain however reports it has improved from over night with the meds she is recieving. denies SOB, PND or orthopnea VS reviewed AXox3 CABG scar is well healed, S1 and s2, no murmurs, RRR CLTA moves all extremities, no edema A/P NSTEMI CAD s/p CABG in 2005 HTN HLD hypothyroidism continue DAPT, heparin drip, BB, ACEI, NTG drip cardiology consulted will follow recommendations NPO for possible procedure.
[2019-03-22] MEDS ORDERED: Verapamil 5 MG/2 ML VIAL ONE ×2 (10:51→12:45)
[2019-03-22] MEDS ORDERED: *HR* Midazolam HCl 2 MG/2 ML VIAL ONE ×2 (10:52→12:57)
[2019-03-22] MEDS ORDERED: *HR* FentaNYL (PF) 100 MCG/2 ML VIAL ONE ×3 (10:52→16:18)
--- NOTE | 2019-03-22 10:55 | Pre-Sedation Evaluation ---
Pre-sedation evaluation - Pre-sedation checklist Date of procedure: 03/22/19 Procedure: Heart Cath Recent Vitals: Last Vital Signs Temp 98.1 F 03/22/19 07:29 Pulse 75 03/22/19 07:29 Resp 16 03/22/19 07:29 BP 139/85 03/22/19 07:29 Pulse Ox 96 03/22/19 07:29 H&P (including ROS) documented in medical record: Yes Previous reaction to sedatives/anesthetics: No Dietary Status: NPO after Midnight Dentition: No loose teeth or bridges ASA Classification *see protocol: CLASS II-Mild systemic disease Plan of Care: Pt appropriate candidate for procedure/moderate/conscious sedation, Risks/benefits of procedure/sedation discussed w/ patient/family Cardiac Registry (Cardio Only) - Functional Capacity Functional Capacity: >=4 METS with symptoms - Clincal Frailty Scale Clinical Frailty Scale: Managing Well
[2019-03-22] MEDS ORDERED: Tirofiban 12.5 MG/250ML 12.5 MG/250 ML BAG ONE (11:24)
[2019-03-22] MEDS ORDERED: Protamine Sulfate 50 MG/5 ML VIAL IVP ONE ×2 (11:48→12:26)
--- NOTE | 2019-03-22 12:48 | Event Note ---
Date of Encounter: 03/22/19 Time of Encounter: 12:45 - Cardiology Event Note sp C w bypass study with plan for PCI of either LCx or SVG to OM and 3000U heparin given. Unable to pass balloon through [place] LCx so this guide was removed. Sheath displaced as removing guide catheter with maintenance of arterial access by wire and guide catheter (blood flow at end of guide catheter). Unable to pass sheath over guide catheter back into artery so guide catheter removed maintaining wire access and sheath introducer placed into sheath, re-advancing 6F sheath into the femoral artery. Sheath angiogram demonstrates contrast extravasation around the 6F sheath in the proximal portion of the SFA. Upsized to a 7F sheath with mild improvement but continued contrast extravasation around the sheath. At this point, did not want to continue to upsize sheath so removed it with local pressure held and 30mg protamine given with ACT <150 prior to sheath removal. Continued oozing at the sheath site at 60 minutes, another 30mg protamine given and vascular surgery consulted. Patient hemodynamically stable. After reviewing films with Dr. Staples, appeared would need surgical access to resolve SFA bleeding. However would need PCI SVG OM prior to surgery with MAC. Proceeding with left radial SVG OM intervention. Poor guide support but able to wire, PTCA lesion low pressure with 2.0 balloon followed by attempt to deploy embolic protection filter prior to definitive PCI. Unable to pass/deploy filterwire, and proceeded with PCI with ORA x 2 nonoverlapping. Brief slow flow improved with adenosine bolus. Re examined femoral site, still slow oozing into hematoma. Patient transferred to OR team for femoral repair. Details explained to patient and family, all questions answered and no concerns voiced by family. 300mg plavix once she is out of OR. She has been on aspirin and plavix daily at home.
[2019-03-22] MEDS ORDERED: Heparin 1,000 UNITS/500 mL 1,500 ML ONE (13:07)
[2019-03-22] MEDS ORDERED: Calcium Gluconate 1,000 MG/10 ML VIAL ONE (13:07)
[2019-03-22] MEDS ORDERED: Vancomycin 1,000 MG VIAL ONE (13:08)
--- NOTE | 2019-03-22 13:19 | Electrocardiograph Report ---
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
--- NOTE | 2019-03-22 13:22 | Electrocardiograph Report ---
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
[2019-03-22] MEDS ORDERED: *HR* Adenosine 6 MG/2 ML VIAL IVP ONE (13:33)
--- NOTE | 2019-03-22 14:09 | Anesthesia Evaluation PreOp ---
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 ARC History: Denies Any Significant HX Other Medical History: Thyroid Anesthesia History: No Prior Anesthetic Complications, Past Anesthesia Alcohol Use: none Drug use: none Medications and Allergies ALPRAZolam [Xanax 0.5 MG Tablet] 0.5 mg PO DAILY PRN 03/22/19 [History] Aspirin [Adult Aspirin Regimen] 81 mg PO DAILY 03/22/19 [History] Carvedilol [Coreg] 6.25 mg PO BID 03/22/19 [History] Clopidogrel [Plavix] 75 mg PO DAILY 03/22/19 [History] Esomeprazole Magnesium [Nexium] 40 mg PO DAILY 03/22/19 [History] Furosemide [Lasix] 20 mg PO MOTUWETHFRSA 03/22/19 [History] Isosorbide MONOnitrate (24 HR) [Imdur] 15 mg PO DAILY 03/22/19 [History] Levothyroxine [Synthroid] 50 mcg PO QAM 03/22/19 [History] Lisinopril [Zestril] 40 mg PO DAILY 03/22/19 [History] Potassium Chloride [K-Tab ER] 10 meq PO BID 03/22/19 [History] Allergy/AdvReac Type Severity Reaction Status Date / Time Tetanus Vaccines and Toxoid Allergy Anaphylaxis Verified 03/22/19 10:27 [Tetanus Vaccines & Toxoid] venom-honey bee Allergy Anaphylaxis Verified 03/22/19 10:27 [bee venom (honey bee)] atorvastatin [From Lipitor] AdvReac MUSCLE Verified 03/22/19 10:27 WEAKNESS - Meds/Allergy Pre-op Review Medications Reviewed: Yes Allergies Reviewed: Yes Beta Blockers on Current Med List: No Anesthesia Results - Labs 03/22/19 07:03 03/22/19 07:03 Anesthesia Exam Selected Entries 03/22/19 07:29 Temperature 98.1 F Pulse Rate 75 Respiratory Rate 16 Blood Pressure 139/85 O2 Sat by Pulse Oximetry 96 Oxygen Flow Rate (LPM) 2 Oxygen Delivery Method Nasal Cannula Weight: 61kg NPO (# of Hours): 8 - HEENT Mallampati: II Teeth: Poor dentition - 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
--- NOTE | 2019-03-22 14:18 | Vascular/Endovasc Consult Note ---
Date of Encounter: 03/22/19 Time of Encounter: 11:15 Assessment and Plan (1) Major laceration of femoral artery Current Visit: Yes Status: Acute The patient has a right superficial femoral artery hemorrhage after left heart catheterization. Due to her persistent bleeding despite manual compressio, Emergent repair is recommended. The risks, benefits and alternatives were discussed with the patient and her family. They expressed understanding and a greed to proceed. The patient is hemodynamically stable with direct pressure being held on the groin. Due to her non-ST elevation myocardial infarction the patient will undergo coronary stenting via a radial approach prior to undergoing femoral vessel exploration and repair. This will help reduce her risk of intraoperative cardiac complications. Qualifiers: Encounter type: initial encounter Laterality: right Qualified Code(s): S75.021A - Major laceration of femoral artery, right leg, initial encounter (2) CAD (coronary artery disease) Current Visit: Yes Status: Acute Qualifiers: Coronary Disease-Associated Artery/Lesion type: bypass graft [place] vs. transplanted heart: [place] heart Associated angina: with unstable angina Qualified Code(s): I25.700 - Atherosclerosis of coronary artery bypass graft(s), unspecified, with unstable angina pectoris (3) Ischemic cardiomyopathy Current Visit: Yes Status: Acute (4) Non-STEMI (non-ST elevated myocardial infarction) Current Visit: Yes Status: Acute (5) Hypertension Current Visit: Yes Status: Chronic Qualifiers: Hypertension type: essential hypertension Qualified Code(s): I10 - Essential (primary) hypertension - History of Present Illness Consult date: 03/22/19 Requesting physician: Michoacano Alston Consult reason: Right femoral artery laceration Chief complaint: Hemorrhage and expanding hematoma in the right groin History of present illness: Ms. Bansal is a 88 year old female with history of coronary artery disease status post coronary bypass grafting, hypertension and hyperlipidemia who presented with a non-ST elevation myocardial infarction. The patient was taken to the catheterization lab for left heart catheterization. She initially was accessed through the right femoral artery. The sheath became dislodged and the patient experienced bleeding from the site. The sheath size was increased and despite this patient further bleeding. Vascular surgery was counseled for further evaluation. At the time of evaluation the patient does have extravasation of contrast from the right femoral vessels on angiography. The patient was noted to be hemodynamically stable and direct pressure was being held the time of evaluation. The patient was alert and appears comfortable. Past Med Surg Social Fam HX - Past Medical History Medical history: arthritis, coronary artery disease, hyperlipidemia, hypertension, thyroid disease Additional medical history: SLEEP APNEA, ANEMIA, CATARACTS, Psychiatric history: no psych history - Past Surgical History Surgical History: coronary bypass (CABG) Additional surgical history: BUNIONECTOMY, CSECTION X2, LEFT ARM SURGERY, RIGHT FOOT SURGERY, TRIPLE BYPASS November 2005, - Social History Smoking Status: Former smoker Smokeless Tobacco Status: No Alcohol use: none Drug use: none - Family History Mother Hx Family Cardiac Disorders: Yes Father Living Status: Hx Family Cardiac Disorders: Yes Medications and Allergies ALPRAZolam [Xanax 0.5 MG Tablet] 0.5 mg PO DAILY PRN 03/22/19 [History] Aspirin [Adult Aspirin Regimen] 81 mg PO DAILY 03/22/19 [History] Carvedilol [Coreg] 6.25 mg PO BID 03/22/19 [History] Clopidogrel [Plavix] 75 mg PO DAILY 03/22/19 [History] Esomeprazole Magnesium [Nexium] 40 mg PO DAILY 03/22/19 [History] Furosemide [Lasix] 20 mg PO MOTUWETHFRSA 03/22/19 [History] Isosorbide MONOnitrate (24 HR) [Imdur] 15 mg PO DAILY 03/22/19 [History] Levothyroxine [Synthroid] 50 mcg PO QAM 03/22/19 [History] Lisinopril [Zestril] 40 mg PO DAILY 03/22/19 [History] Potassium Chloride [K-Tab ER] 10 meq PO BID 03/22/19 [History] Allergy/AdvReac Type Severity Reaction Status Date / Time Tetanus Vaccines and Toxoid Allergy Anaphylaxis Verified 03/22/19 10:27 [Tetanus Vaccines & Toxoid] venom-honey bee Allergy Anaphylaxis Verified 03/22/19 10:27 [bee venom (honey bee)] atorvastatin [From Lipitor] AdvReac MUSCLE Verified 03/22/19 10:27 WEAKNESS All Systems Review: The remainder of the systems were reviewed and are negative Exam General: Present: Conversant, No Apparent Distress HEENT: Present: Pupils equal Neck: Present: JVD Cardiac: Present: Reg Rate and Rhythm Lungs: Present: Normal Breath Sounds Neuro: Present: Alert and responsive, No focal deficits noted Abdomen: Present: Soft, Non-tender. Absent: Masses Vascular: Present: Normal capillary refill, Other (Right inguinal ecchymosis). Absent: Cyanosis, Edema Skin: Present: No rashes noted on visualized skin, Wound/ulcer(s) Consult Discharge Plan - Plan Referrals: Charles Staples MD [Partnered Physician] - 04/06/19 2:10 pm Teofilo Alcantara MD [Primary Care Provider] - 04/05/19 9:15 am
--- NOTE | 2019-03-22 14:31 | Electrocardiograph Report ---
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
[2019-03-22] MEDS ORDERED: *HR* OxyCODONE Immed Rel 5 MG TABLET PO PRN ×2 (14:34→17:58)
[2019-03-22] MEDS ORDERED: traMADol 50 MG TABLET PO PRN (14:34)
[2019-03-22] MEDS ORDERED: *HR* Promethazine 25 MG/ML VIAL IVP PRN (14:34)
[2019-03-22] MEDS ORDERED: Ringers Solution, Lactated 1,000 ML IVC SCH (14:45)
[2019-03-22] MEDS ORDERED: ceFAZolin 2,000 MG in Water for inj. (sterile) 20 ML IVP ONE (15:20)
--- NOTE | 2019-03-22 16:10 | Operative Note ---
Date of procedure: 03/22/19 Pre-op diagnosis: Right femoral artery laceration Post-op diagnosis: same Procedure: 1. Right femoral vessel exploration 2. Direct repair of the right superficial femoral artery. Complications: None Anesthesia: ARLEENA Surgeon: Charles Staples Was there an cataloging assistant present: No Estimated blood loss (cc): 5 Specimen: None Condition: stable Disposition: PACU Procedure in Detail: Indications: The patient is a 88-year-old who with a history of coronary artery disease, hyperlipidemia and hypertension. The patient presented with a non-ST elevation myocardial infarction. She states the catheterization lab for a left heart catheterization. Patient was initially accessed via the right groin. She is found have significant bleeding when the sheath became dislodged. Despite increasing the diameter of the sheath and reentering the artery, the patient persistent bleeding. A right femoral angiogram revealed bleeding on the proximal right superficial femoral artery. Direct pressure was held the patient ultimately underwent coronary stenting via a radial artery approach. Due to persistent hemorrhage, exploration and repair of her femoral artery was recommended. Procedure: The patient was identified in the preoperative area. The risks, benefits and alternatives were discussed and all questions were answered. The patient was then taken operating room and placed in the supine position on the operating table. After induction of general endotracheal anesthesia she was prepped and draped in normal sterile fashion. Oblique incision was then made over the right femoral vessels sharply. Hemostasis was obtained with electrocautery. Through a process of blunt, sharp and electrocautery dissection the common femoral artery was dissected circumferentially and surrounded with a vessel loop. Dissection was then performed distally along the common femoral artery into the superficial femoral artery was identified. The distal superficial femoral artery and deep femoral artery were clamped after identifying the laceration on the proximal superficial femoral artery. The laceration was repaired with a running 6-0 Prolene. Prior to completing the repair the vessels were flushed and then heparinized saline was infused into the lumen. The suture was tied and flow was restored. Further evaluation of the wound revealed no further bleeding sites. The wound was irrigated with antibody containing saline. Meticulous hemostasis was obtained throughout the wound with electrocautery. The wound was reapproximated with a layer of 2-0 Vicryl followed by 2 layers of 3-0 Vicryl. The skin was reapproximated with running 3-0 Monocryl suture. A sterile dressing was placed. The patient was then extubated and taken to the recovery room in stable condition.
[2019-03-22] MEDS ORDERED: *HR* Etomidate 40 MG/20 ML VIAL IVP ONE (16:18)
[2019-03-22] MEDS ORDERED: *HR* Rocuronium Bromide 50 MG/5 ML VIAL ONE (16:18)
[2019-03-22] MEDS ORDERED: Neostigmine Methylsulfate 3 MG/3 ML SYRINGE ONE (16:18)
[2019-03-22] MEDS ORDERED: *HR* PHENYLEPHRINE 1,000 MCG/10 ML SYRINGE IVP ONE (16:18)
[2019-03-22] MEDS ORDERED: *HR* Succinylcholine 200 MG/10 ML VIAL IVP ONE (16:18)
[2019-03-22] MEDS ORDERED: Lidocaine -MPF 2% 2 ML VIAL ONE (16:18)
[2019-03-22] MEDS ORDERED: *HR* Phenylephrine 10 MG/ML VIAL ONE (16:18)
[2019-03-22] MEDS ORDERED: *HR* Metoprolol 5 MG/5 ML VIAL IVP ONE (16:18)
[2019-03-22] MEDS ORDERED: Ondansetron 4 MG/2 ML VIAL ONE (16:18)
[2019-03-22] MEDS ORDERED: *HR* Heparin 5,000 UNIT/ML VIAL ONE (16:18)
--- NOTE | 2019-03-22 17:03 | Anesthesia Evaluation Post Op ---
Date of Encounter: 03/22/19 Time of Encounter: 17:02 - Vital Signs Vital Signs: Last Vital Signs Temp 98.8 F 03/22/19 16:35 Pulse 61 03/22/19 16:55 Resp 16 03/22/19 16:55 BP 105/62 03/22/19 16:55 Pulse Ox 98 03/22/19 16:55 - Lungs Lungs: Clear Ascult./Percussion - Airway Airway: Non-obstructed - Cardiovascular Regular Rate - Mental Status Mental Status: Alert & Oriented, Answers Appropriately - Pain Pain Scale: 1 - Nausea Vomiting Nausea Vomiting: Not Present - Hydration Hydration: NPO - Discharge PostOp Status: Transfer Patient to floor
[2019-03-22] MEDS ORDERED: Acetaminophen 325 MG TABLET PO PRN (17:58)
[2019-03-22] MEDS ORDERED: *HR* HYDROcodone/Acet 5/325 mg TABLET PO PRN (17:58)
[2019-03-22] MEDS: Nitroglycerin 25 MG/250 ML INFUS..BTL IVC SCH (18:50)
[2019-03-22] MEDS ORDERED: Perflutren Lipid Microsphere 1.3 ML in 0.9 % Sodium Chloride 8.7 ML IVP ONE (19:08)
[2019-03-23 06:24] LABS: Hematocrit 31.2 % (35.3-44.9); Mean Corpuscular HGB Conc 32.1 g/dL (31.6-35.5); Mean Corpuscular Hemoglobin 31.7 pg (28.0-33.3); Mean Platelet Volume 13.1 fL (9.4-12.4); Platelet Count 152 K/mcL (140-400); Red Blood Count 3.15 M/mcL (3.82-4.97); Red Cell Distribution Width 13.3 % (11.5-14.5); White Blood Count 9.8 K/mcL (4.3-11.1)
[2019-03-23 06:40] LABS: Calcium 8.7 mg/dL (8.6-10.3); Potassium 3.8 mEq/L (3.5-5.1)
[2019-03-23] MEDS: Aspirin Enteric Coated 81 MG Tablet PO SCH (07:40)
--- NOTE | 2019-03-23 08:15 | Cardiology Progress Note ---
<Ramya Albrecht N - Last Filed: 03/23/19 09:56> Date of Encounter: 03/23/19 Time of Encounter: 08:11 Assessment and Plan (1) Non-STEMI (non-ST elevated myocardial infarction) Current Visit: Yes Status: Acute S/p LHC on 03/22/2019 PCI with placement of nonoverlapping ORA x2. Troponin peak noted at 4.24 yesterday morning prior to undergoing LHC. Continue DAPT. (2) CAD (coronary artery disease) Current Visit: Yes Status: Acute History of CAD s/p CABG x3 in 2005 and LHC in 2014 with stent placement in proximal SVG to OM graft. Continue aspirin and beta jeremie. Patient reports intolerance to statin therapy due to development of myalgias; however, she is agreeable to a trial of a different statin, as she has only tried atorvastatin in the past. Start crestor 10mg, with plan to increase as tolerated. If patient cannot tolerate that medication, consider a trial of pravastatin. Qualifiers: Coronary Disease-Associated Artery/Lesion type: bypass graft [place] vs. transplanted heart: [place] heart Associated angina: with unstable angina Qualified Code(s): I25.700 - Atherosclerosis of coronary artery bypass graft(s), unspecified, with unstable angina pectoris (3) Hypertension Current Visit: Yes Status: Chronic BP appears well-controlled. Continue home medications of carvedilol, lisinopril, and lasix. Qualifiers: Hypertension type: essential hypertension Qualified Code(s): I10 - Essential (primary) hypertension Discussion w patient/family: The assessment and plan as outlined above was discussed with the patient and/or family members who expressed understanding and agreement. All questions were answered. Thank you for involving us in the care of your patient. Please call with any questions. Subjective Principal diagnosis: NSTEMI Interval history: Ms. Bansal was seen and evaluated at the bedside. She reports resolution of her chest pain, and denies any repeat episodes of angina, even with ambulation. She does endorse some shortness of breath with exertion. She states that she is tired today and has no appetite; otherwise, she denies any acute complaints or concerns. Objective Vital Signs, Last 4 Hours Temp Pulse Resp BP Pulse Ox 03/23/19 07:39 98.2 F 82 18 111/63 96 General: Conversant, No Apparent Distress HEENT: Atraumatic, Normocephaly, Mucus Membranes Moist Neck: No JVD, Normal carotid pulses Cardiac: Reg Rate and Rhythm, Normal S1 and S2, No Murmur Lungs: Normal Breath Sounds, No Wheeze, Rales, Rhonchi Neuro: Alert and responsive, No focal deficits noted Abdomen: Soft, Non-Tender Skin: No rashes noted on visualized skin Musculoskeletal: No Chest Wall Tenderness Extremities: No Clubbing, No Cyanosis, No Edema, Normal Pulses Results 03/23/19 05:25 03/23/19 05:25 Lab Results 03/22/19 03/23/19 03/23/19 09:42 05:25 05:25 WBC 9.8 Hgb 10.0 L D Hct 31.2 L Plt Count 152 Sodium 142 Potassium 3.8 Chloride 107 Carbon Dioxide 24 BUN 15 Creatinine 1.08 Glucose 119 H Calcium 8.7 Troponin I 4.24 H* Consult Discharge Plan - Plan Referrals: Charles Staples MD [Partnered Physician] - 04/06/19 2:10 pm Teofilo Alcantara MD [Primary Care Provider] - 04/05/19 9:15 am <Chencho Hernandez - Last Filed: 03/23/19 14:17> Date of Encounter: 03/23/19 Assessment and Plan Discussion w patient/family: The assessment and plan as outlined above was discussed with the patient and/or family members who expressed understanding and agreement. All questions were answered. Thank you for involving us in the care of your patient. Please call with any questions. Objective Vital Signs, Last 4 Hours Temp Pulse Resp BP Pulse Ox 03/23/19 11:38 98.3 F 86 18 113/62 96 03/23/19 11:30 18 Results 03/23/19 05:25 03/23/19 05:25 Lab Results 03/23/19 03/23/19 05:25 05:25 WBC 9.8 Hgb 10.0 L D Hct 31.2 L Plt Count 152 Sodium 142 Potassium 3.8 Chloride 107 Carbon Dioxide 24 BUN 15 Creatinine 1.08 Glucose 119 H Calcium 8.7 - Attending Attestation Patient was seen and evaluated independently by me. Findings, assessment and plan were discussed at length with patient, questions answered. Agree with nurse practitioner's/resident's documentation. Addition as follows, Interim Had DESx2 -SVG-OM and R-SFA injury repair by vascular surgery. No complaint this am, no chest pain, dyspnea or palpitations. Tele no events. VSS, CTA B/L, RR, R-groin dress dry no hematoma. TTE [id number] EF 20-25%, severe RWMA, mild DD, mild RV dysfunction, mod-severe TR, severe PH, RVSP 66. Initial 88 yoCF ho CABGx3, then ORA-SVG-OM 2014 for abn stress test ([facility] 3/3 patent grafts), chronic angina, LVEF 55-60% 2015, HTN, HLD, hypothyroidism. P/w moderate to severe angina after mild exertion 12 hrs, constant with partial relief by NTG, mild dyspnea. ECG STD V3-4 on admission, new mild STE0.5mm I/l 3rd ECG. Trop peak 2.5. Tele no events Mild BP elevation, RA to NC O2 2L, CTA B/L, RR, no M/G/R, no LE edema No anemia or EDIS. No surgery planned, no bleeding diathesis, no IV contrast allergy. 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
[2019-03-23] MEDS ORDERED: Lisinopril 20 MG TABLET PO SCH (09:00)
--- NOTE | 2019-03-23 13:40 | Internal Med Progress Note ---
Hospitalist Progress Note - Encounter Date of Encounter: 03/23/19 Time of Encounter: 08:20 - Subjective Interval History: anibal was seen and examiend at bedside. has no complaints. denies numbness or loss of function of her right extremity. denies N/v/D. chest pain has resolved. all questions answered. denies overnight events. tolerating PO diet. lives alone. - Exam Vitals: Temp Pulse Resp BP Pulse Ox 98.3 F 86 18 113/62 96 03/23/19 11:38 03/23/19 11:38 03/23/19 11:38 03/23/19 11:38 03/23/19 11:38 Exam: General: Patient is alert, oriented, no acute distress, speaks in full sentences Head: atraumatic, normocephalic, Eye: normal appearance, PERRL, no scleral icterus, no conjunctival injection ENT: mucous membranes moist, normal external ear exam Neck: normal inspection, trachea midline, full ROM, Chest: normal inspection, symmetric chest rise, CABG scar is well-healed Respiratory: Good respiratory effort. Bilateral breath sounds are clear without wheezing, crackles, or rhonchi. Cardiovascular: Regular rate and rhythm. s1 and s2 Abdomen: Bowel sounds present normoactive x-4 quadrants. Abdomen is soft, nondistended. no Epigastric tenderness. No guarding or rebound. No organomegaly noted musculoskeletal: Spontaneously moving all extremities. no edema, no calf tenderness, right lower extremity is warm Skin: warm, dry, intact. has large ecchymosis of the right groin. no hematoma was palpated, dressing with minimal blood stained. Neuro: Alert and oriented x3 , no focal deficit Psych: Patient's affect is normal - Assessment and Plan (1) Non-STEMI (non-ST elevated myocardial infarction) Current Visit: Yes Status: Acute Assessment and Plan: s/p LHC on 03/22 PCI with placement of nonoverlapping ORA x2. History of CAD s/p CABG x3 in 2005 and LHC in 2014 with stent placement in proximal SVG to OM graft. continue DAPT, BB, statin, lisinopril cardiology recs appreciated (2) HFrEF (heart failure with reduced ejection fraction) Current Visit: Yes Status: Acute Assessment and Plan: TTE on 03/22 with HFREF LVEF 20-25%.- full report below continue with lasix, lisinopril, BB will discuss with cardiology in regards to aldactone and life vest TTE: 03/22 Impressions: LVEF 20-25%. Normal LV chamber size. Severe segmental left ventricular systolic dysfunction. Mild left ventricular diastolic dysfunction. Atypical septal motion consistent with post-operative status. Normal right ventricular size, mildly reduced function. Moderate-severe tricuspid regurgitation. Severe pulmonary hypertension. Estimated RVSP is 66 mmHg. (3) Cholelithiasis Current Visit: Yes Status: Acute Assessment and Plan: Cholelithiasis noted on CT of the chest with a moderately dilated gallbladder. RUQ US ordered will follow will consult GI LFTs in AM CTA A/P Cholelithiasis and choledocholithiasis. There are 3 small adjacent calculi in a linear configuration in the distal common bile duct. The gallbladder is moderately dilated. There is minimal bile duct dilatation. Follow-up ERCP would be helpful. (4) Hypertension Current Visit: Yes Status: Chronic Assessment and Plan: continue home medications- adjust as per BP (5) Major laceration of femoral artery Current Visit: Yes Status: Acute Assessment and Plan: developed during procedure vascular surgery on board s/p OR adn repair on 03/22 continue to monitor site rest of [place] management as per vascular surgery (6) Post-operative hemorrhage Current Visit: Yes Status: Acute Assessment and Plan: SFA bleeding s/p vascular intervention on 03/22 continue to monitor H/H on DAPT ( recent stent) continue to monitor site transfuse <8 (7) DVT prophylaxis Current Visit: Yes Status: Acute Assessment and Plan: scds - Time Spent with Patient Total time spent is greater than 50% in coordination of care (as documented) at patient's floor/unit and/or counseling patient: 25 - 35 minutes Plan of Care Discussed with: patient Internal Medicine: Result - Labs CBC & Chem 7: 03/23/19 05:25 03/23/19 05:25 Labs: Short CBC 03/23/19 Range/Units 05:25 WBC 9.8 (4.3-11.1) K/mcL Hgb 10.0 L D (11.5-15.4) g/dL Hct 31.2 L (35.3-44.9) % Plt Count 152 (140-400) K/mcL BMP 03/23/19 05:25 Sodium 142 Potassium 3.8 Chloride 107 Carbon Dioxide 24 BUN 15 Creatinine 1.08 Glucose 119 H Calcium 8.7 - ABG Interpretation ABG results: PT/INR, D-dimer PT 12.6 Seconds (9.4-12.1) H 03/22/19 07:03 - Impressions Impressions Echocardiogram 03/22/19 02:08 Impressions: LVEF 20-25%. Normal LV chamber size. Severe segmental left ventricular systolic dysfunction. Mild left ventricular diastolic dysfunction. Atypical septal motion consistent with post-operative status. Normal right ventricular size, mildly reduced function. Moderate-severe tricuspid regurgitation. Severe pulmonary hypertension. Estimated RVSP is 66 mmHg. Left Ventricular Wall Motion: Rest Echo Findings The apex, apical inferior, mid inferior, apical anterior, mid anterior, apical septal, mid inferior septal, apical lateral, mid anterior lateral, mid anterior septal and mid inferior lateral garcia were hypokinetic. All other wall segments showed normal motion. Findings: Study Quality * Technically sub-optimal due to poor echocardiographic windows. ECG Findings * Normal sinus rhythm. Left Ventricle * LVEF 20-25%. * Normal LV chamber size. * Severe segmental left ventricular systolic dysfunction. * Mild left ventricular diastolic dysfunction. * Atypical septal motion consistent with post-operative status. Right Ventricle * Normal right ventricular size, mildly reduced function. Left Atrium * Mildly dilated left atrium. Right Atrium * Normal right atrial size. Interatrial Septum * Interatrial septum not well evaluated. Aortic Valve * Aortic valve not well visualized. * Grossly, mildly sclerotic aortic valve leaflets. * Trace aortic regurgitation. * No aortic stenosis. Mitral Valve * Mildly thickened mitral valve leaflets. * Trace mitral regurgitation. * No mitral stenosis. Tricuspid Valve * Normal tricuspid valve structure. * Moderate-severe tricuspid regurgitation. * Severe pulmonary hypertension. * Estimated RVSP is 66 mmHg. * Estimated RA pressure is 5 mmHg. Pulmonic Valve * Normal pulmonic valve structure. * Mild pulmonic regurgitation. Aorta * Normally sized aortic root. Pericardium * The pericardium appears normal. IVC * The IVC is not dilated. * < 50% respiratory change. Pulmonary Artery * Pulmonary artery not well visualized. Consult Discharge Plan - Plan Referrals: Charles Staples MD [Partnered Physician] - 04/06/19 2:10 pm Teofilo Alcantara MD [Primary Care Provider] - 04/05/19 9:15 am (2) HFrEF (heart failure with reduced ejection fraction) Qualifiers: Heart failure chronicity: acute Qualified Code(s): I50.21 - Acute systolic (congestive) heart failure (3) Cholelithiasis Qualifiers: Cholelithiasis location: gallbladder and bile duct Cholecystitis presence: wi thout cholecystitis Biliary obstruction: with biliary obstruction Qualified Code(s): K80.71 - Calculus of gallbladder and bile duct without cholecystitis with obstruction (4) Hypertension Qualifiers: Hypertension type: essential hypertension Qualified Code(s): I10 - Essential (primary) hypertension (5) Major laceration of femoral artery Qualifiers: Encounter type: initial encounter Laterality: right Qualified Code(s): S75.021A - Major laceration of femoral artery, right leg, initial encounter (6) Post-operative hemorrhage Qualifiers: Surgical complication system/body Area: subcutaneous tissue Procedure type: non-dermatologic Qualified Code(s): L76.22 - Postprocedural hemorrhage of skin and subcutaneous tissue following other procedure
--- NOTE | 2019-03-24 06:24 | Vascular/[facility] Progress Note ---
Date of Encounter: 03/23/19 Time of Encounter: 16:35 - Assessment and plan (1) Major laceration of femoral artery Current Visit: Yes Status: Acute The patient is postoperative day #1 after a right femoral artery repair. Her incision is healing. She is neurovascularly intact. Qualifiers: Encounter type: initial encounter Laterality: right Qualified Code(s): S75.021A - Major laceration of femoral artery, right leg, initial encounter - Subjective Interval history: The patient reports adequate pain control. She denies any chest pain or shortness of breath. Vital Signs, Last 4 Hours Temp Pulse Resp BP Pulse Ox 03/24/19 04:25 76 85/49 94 03/24/19 03:51 98.0 F 86 17 85/55 92 - Physical Examination General: Present: Conversant Cardiac: Present: Reg Rate and Rhythm Lungs: Present: Decreased breath sounds Neuro: Present: Alert and responsive Vascular: Present: Normal capillary refill, Surgical incisions (No hematoma, bandage dry). Absent: Cyanosis, Edema Abdomen: Present: Soft Results 03/23/19 05:25 03/23/19 05:25 Lab Results, Last 24 hours 03/23/19 03/23/19 05:25 05:25 WBC 9.8 Hgb 10.0 L D Hct 31.2 L Plt Count 152 Sodium 142 Potassium 3.8 Chloride 107 Carbon Dioxide 24 BUN 15 Creatinine 1.08 Glucose 119 H Calcium 8.7 Consult Discharge Plan - Plan Referrals: Charles Staples MD [Partnered Physician] - 04/06/19 2:10 pm Teofilo Alcantara MD [Primary Care Provider] - 04/05/19 9:15 am
[2019-03-24] MEDS: Nitroglycerin 25 MG/250 ML INFUS..BTL IVC SCH (06:27)
[2019-03-24 07:10] LABS: Hematocrit 28.3 % (35.3-44.9); Hemoglobin 9.1 g/dL (11.5-15.4); Mean Corpuscular HGB Conc 32.2 g/dL (31.6-35.5); Mean Corpuscular Hemoglobin 31.4 pg (28.0-33.3); Mean Corpuscular Volume 97.6 fL (83.0-100.0); Mean Platelet Volume 13.6 fL (9.4-12.4); Platelet Count 136 K/mcL (140-400); Red Cell Distribution Width 13.4 % (11.5-14.5); White Blood Count 10.3 K/mcL (4.3-11.1)
[2019-03-24 07:30] LABS: Albumin/Globulin Ratio 1.4 (1.1-2.2); Bilirubin,Total 0.6 mg/dL (0.3-1.0); Calcium 8.9 mg/dL (8.6-10.3); Globulin 2.1 g/dL (2.4-3.5); Potassium 3.8 mEq/L (3.5-5.1); Total Protein 5.1 g/dL (6.4-8.9)
[2019-03-24] MEDS: Aspirin Enteric Coated 81 MG Tablet PO SCH (09:23)
--- NOTE | 2019-03-24 09:51 | Invasive Diagnostic Lab Proc ---
Name: Adina Bansal Date of Study: 03/22/2019 Date: 1930 Ht: 59.1in Medical Record#: [id number] Age: 88 Wt: 134.48lb Gender: Female BSA: 1.56 Order #: [id number] BMI: 27.11 Physicians Procedure Physician: Michoacano Alston MD, [facility] Referring MD: Sonia Wick Referring MD: Staff Name Position Time In LulyElisha RN Monitor 10:56 AM William Tate RN Master Fire Control Technician 10:56 AM Porsha Hart RT Scrub 10:56 AM Sonia Stein RT (R) Scrub 10:56 AM Harvinder Berg RN Master Fire Control Technician 11:05 AM Mathew Woo RN Nurse 11:50 AM Agustina Patten RT (R) Monitor 01:01 PM Agustina Koch RT (R) Scrub 01:01 PM Sonia Stein RT (R) Scrub 01:01 PM Mathew Woo RN Master Fire Control Technician 01:01 PM William Tate RN Master Fire Control Technician 01:01 PM Indications Indication Non-Stemi Procedures Performed Procedure L HRT ART/GRFT ANGIO PRQ REVASC BYP GRAFT 1 VSL Pre-Procedure Checklist Informed consent is complete signed and on chart. H&P is on chart. ID band is on and ID verified with patient. Patient NPO for procedure The procedure was described for the patient and questions were answered. Blood Pressure: 136/89 ECG is on chart. Rhythm: NSR Plan of Care Patient will tolerate the procedure without complications. Adequate level of comfort will be maintained. Hemodynamics will remain stable Patient will recover from procedure without complications. Respiratory function will be maintained. Cardiac rhythm will remain stable. Patient temperature will be maintained. Patient and/or family have verbalized understanding of the procedure. Patient Education Chief Complaint/Reason for Test: Cardiac Cath Developmental Category: Geriatric (65+ years) Developmentally Appropriate for Age: Yes Learning Barriers: None Education Needs: Procedure Education Method: Verbal Information Taught: Cardiac Cath Educational Evaluation: Able to repeat information Intravenous Access Time IV Size Location DC'd Fluid/Drip Rate Units RN 10:50 AM 22g 1" Patent On Arrival Rt Hand 0.9NaCl ml/hr 10:50 AM 20g 1 1/4" Patent On Arrival Rt Antecubital Allergies Tetanus Vaccines Toxoid bee venom (honey bee) atorvastatin TETANUS, BEE STINGS Tetanus Vaccines and Toxoid venom-honey bee Vital Signs Time BP (mmHg) HR (bpm) O2 Sat. RR (bpm) LOC 10:57 AM / % 5 = Fully awake and oriented or at pre-proc level 10:57 AM / % 4 = Oriented but drowsy 11:12 AM / % 4 = Oriented but drowsy 11:27 AM / % 4 = Oriented but drowsy 11:01 AM 136 / 89 84 94 % 10 11:07 AM 125 / 78 86 88 % 19 11:12 AM 118 / 76 86 87 % 17 11:17 AM 123 / 71 88 99 % 17 11:21 AM 122 / 78 86 89 % 16 11:27 AM 119 / 80 102 94 % 16 11:31 AM 120 / 76 95 94 % 16 11:37 AM 115 / 73 80 97 % 18 11:41 AM 129 / 81 76 96 % 16 11:47 AM 131 / 79 96 96 % 17 11:52 AM 129 / 82 81 97 % 19 11:57 AM 125 / 76 86 98 % 17 12:02 PM 137 / 83 82 97 % 21 12:07 PM 135 / 84 80 98 % 20 12:12 PM 135 / 87 92 96 % 23 12:17 PM 138 / 82 81 96 % 20 01:03 PM / % 4 = Oriented but drowsy 01:03 PM / % 4 = Oriented but drowsy 01:18 PM / % 4 = Oriented but drowsy 01:34 PM / % 4 = Oriented but drowsy Procedural Medications Time Medication Dose Units Method Given By 11:01 AM Versed 2 mg Intravenous William Tate RN 11:02 AM Fentanyl 25 mcg Intravenous William Tate RN 11:08 AM Lidocaine 2% 19 ml Subcutaneous Michoacano Alston MD, FACC 11:14 AM Oxygen 4 L/min nasal cannula William Tate RN 11:26 AM Heparin 3000 units Intravenous William Tate RN 11:29 AM Nitroglycerin 100 mcg Intracoronary Michoacano Alston MD 11:50 AM Protamine 30 mg Intravenous Mathew Woo RN 12:26 PM Protamine 30 mg Intravenous Mathew Woo RN 12:58 PM Versed 1 mg Intravenous Mathew Woo RN 12:58 PM Fentanyl 25 mcg Intravenous Mathew Woo RN 01:04 PM Lidocaine 2% 0.5 ml Subcutaneous Michoacano Alston MD, FACC 01:06 PM Heparin 3000 units Nitroglycerin 200 mcg Verapamil 2.5 mg Intraarterial Michoacano Alston MD, [facility] 01:34 PM Versed 1 mg Intravenous Mathew Woo RN 01:34 PM Fentanyl 25 mcg Intravenous Mathew Woo RN 01:35 PM Nitroglycerin 150 mcg Intracoronary Michoacano Alston MD 01:38 PM Heparin 2500 units Intravenous William Tate RN 01:39 PM Adenosine 400 mcg Intracoronary Michoacano Alston MD, FACC 01:42 PM Nitroglycerin 200 mcg Intracoronary Michoacano Alston MD 01:42 PM Adenosine 60 mcg Intracoronary Michoacano Alston MD, FAC 01:43 PM Adenosine 60 mcg Intracoronary Michoacano Alston MD, FAC 01:43 PM Adenosine 60 mcg Intracoronary Michoacano Alston MD, [facility] ASA Classification: CLASS II- Mild systemic disease (i.e. well-controlled diabetes, hypertension, asthma, cigarette smoking) Tad Score Preprocedure Postprocedure Activity 2- Moves 4 extremities sustained head lift Activity Circulation 2- SBP +/= 20 points of pre-anesthetic level Circulation Consciousness 2- Awake and alert oriented x 3 Consciousness O2 Saturation 2- Able to maintain O2 satruation of 92% on room air O2 Saturation Respiratory 2- Able to deep breathe and cough well Respiratory Total Score 10 Total Score Contrast Agent: Isovue Diagnostic Contrast: 180 ml Total Contrast: 180 ml Fluoro Dose: 41 mGy Activated Clotting Time Time Seconds to Clot 11:27 AM 115 11:59 AM 149 Procedure Log Time Note Enter By 10:55 AM CathStat 10:55 AM Case Start 10:56 AM 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 Informed consent was obtained. 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 EKG performed before IV medications turned off. kmavis 10:59 AM ASA Class CLASS II- Mild systemic disease (i.e. well-controlled diabetes, hypertension, asthma, cigarette smoking) kmavis 11:01 AM Vitals capture started with the following parameters, Patient=Adult, Interval=5 min, Initial Mhyncckf=812 mmHg, Deflation Rate=3 mmHg, Cuff placed on Right Arm 11:01 AM HR=84 bpm, DJAZ=149/89 mmhg, SpO2=94.0 %, Resp=10 B/min 11:02 AM Time: 11:01 Versed 2 mg Intravenous Given by William Tate RN [facility] 11:02 AM Time: 11:02 Fentanyl 25 mcg Intravenous Given by William Tate RN [facility] 11:03 AM Hair removed from procedure site in procedure lab using clippers. Bilateral groin prepped with Chloraprep by Porsha Hart, then patient was draped. Skin intact. [facility] 11:05 AM Harvinder Berg RN Position: Master Fire Control Technician Time in: 11:05 [facility] 11:07 AM HR=86 bpm, LVUM=554/78 mmhg, SpO2=88.0 %, Resp=19 B/min 11:08 AM Time out was performed according to hospital policy. Conscious sedation and anesthesia was achieved (see medication log with in this report above) kmavis 11:08 AM Pressure channel 1 zero failed. 11:08 AM Pressure channel 1 zeroed. 11:08 AM Time: 11:08 19 ml Lidocaine 2% to right groin Subcutaneous Given by Michoacano Alston MD, [facility] kmavi 11:09 AM Access obtained by percutaneous puncture. 6Fr 10cm Terumo Monroe sheath placed in right Femoral artery. [id number] kmavis 11:09 AM 5Fr FR 4 catheter inserted over the wire DN kmavis 11:10 AM 0.035 145cm Navilyst 3mmJ wire [id number] kmavis 11:10 AM RCA angiography performed in multiple views. kmavis 11:11 AM Recorded Pressure: Ao, HR=85, Condition=Condition 1 (Aorta) Ao 107/80/93 11:12 AM HR=86 bpm, ITXX=535/76 mmhg, SpO2=87.0 %, Resp=17 B/min 11:12 AM SVG to the RPDA angio performed in multiple views. kmavis 11:12 AM SVG to the 1st OM angio performed in multiple views. kmavis 11:12 AM Time: 10:57 Patient comfortable and pain free: Yes kmavis 11:12 AM Time: 10:57LOC: 4 = Oriented but drowsy kmavis 11:13 AM Catheter removed kmavis 11:13 AM 5Fr FL 4 catheter inserted over the wire [facility] 11:13 AM 5Fr IM catheter inserted over the wire [id number] kmavis 11:14 AM Time: 11:14 Oxygen on at 4 L/min per nasal cannula by William Tate RN kmavis 11:14 AM Left BRYAN to the LAD angio performed in multiple views. kmavis 11:16 AM Recorded Pressure: Ao, HR=90, Condition=Condition 1 (Aorta) Ao 110/84/97 11:16 AM Catheter removed kmavis 11:17 AM HR=88 bpm, MQEN=070/71 mmhg, SpO2=99.0 %, Resp=17 B/min 11:17 AM 5Fr FL 4 catheter inserted over the wire [facility] kmavis 11:17 AM LCA angiography performed in multiple views. kmavis 11:18 AM Recorded Pressure: Ao, HR=87, Condition=Condition 1 (Aorta) Ao 114/81/98 11:19 AM Recorded Pressure: Ao, HR=85, Condition=Condition 1 (Aorta) Ao 112/81/96 11:21 AM Physician reviewing films kmavis 11:21 AM Catheter removed kmavis 11:21 AM HR=86 bpm, VTFX=046/78 mmhg, SpO2=89.0 %, Resp=16 B/min 11:22 AM 5Fr Pigtail catheter inserted over the wire [facility] kmavis 11:23 AM Recorded Pressure: LV, HR=85, Condition=Condition 1 (Left Ventricle) LV 124/13/26 11:23 AM Recorded Pressure: LV, Ao, HR=88, Condition=Condition 1 (Left Ventricle) LV 122/26/27, (Aorta) Ao 115/59/84 11:24 AM Catheter crossed the aortic valve and was selectively placed in the left ventricle. Pressures recorded on pullback for left heart catheterization. kmavis 11:24 AM Catheter removed kmavis 11: AM 6Fr CLS 3.5 Runway guide catheter was used to cannulate the PCI vessel successfully. reused? No kmavis 11:24 AM .014 PT Graphix 190cm guide wire across target lesion- successful. reused? No kmavis 11:24 AM Inflation device was opened. kmavis 11:25 AM 2.25 mm x 15 mm Emerge Monorail balloon across target lesion-unsuccessful. reused? No kmavis 11: AM Recorded Pressure: Ao, HR=81, Condition=Condition 1 (Aorta) Ao 130/73/98 11:25 AM At 11:25 the ACT was 115 seconds. kmavis 11: AM Coronary Dominance: right. Left to right collaterals. kmavis 11: AM Time: 11: Heparin 3000 units Intravenous Given by William Tate RN avis 11: AM PN=178 bpm, AQSD=070/80 mmhg, SpO2=94.0 %, Resp=16 B/min 11: AM Time: 11:12 Patient comfortable and pain free: Yes kmavis 11: AM Time: 11:12LOC: 4 = Oriented but drowsy kmavis : AM Time: 11: Nitroglycerin 100 mcg Intracoronary Given by Michoacano Alston MD kmavis 11:30 AM Guide wire removed intact. kmavis 11:30 AM Balloon catheter removed intact. kmavis 11: AM HR=95 bpm, XOYD=524/76 mmhg, SpO2=94.0 %, Resp=16 B/min 11:33 AM Guide catheter removed intact. kmavis 11:34 AM 0.035 260cm Navilyst 3mmJ wire [id number] avis 11:35 AM 6Fr JR 4 Runway guide catheter was used to cannulate the PCI vessel successfully. reused? No kmavis 11:36 AM Recorded Pressure: Ao, HR=81, Condition=Condition 1 (Aorta) Ao 122/73/94 11:37 AM HR=80 bpm, WFXB=743/73 mmhg, SpO2=97.0 %, Resp=18 B/min 11:37 AM Lesion found in Proximal RCA. Pre Stenosis: 80 Pre GLENYS Flow: kmavis 11:37 AM Lesion found in Mid RCA. Pre Stenosis: 100 Pre GLENYS Flow: kmavis 11:37 AM Lesion found in Proximal LAD. Pre Stenosis: 95 Pre GLENYS Flow: kmavis 11:38 AM Lesion found in 1st Diagonal. Pre Stenosis: 90 Pre GLENYS Flow: kmavis 11:38 AM Lesion found in Mid Circumflex. Pre Stenosis: 95 Pre GLENYS Flow: kmavis 11:38 AM Lesion found in 1st Marginal. Pre Stenosis: 99 Pre GLENYS Flow: kmavis 11:39 AM contrast injected to right groin to look at sheath placement. kmavis 11:40 AM Sheath exchanged for a 7 Fr 10 cm Cordis Milagro sheath [id number] kmavis 11:41 AM Proximal Left Anterior Descending Coronary Artery with 95% stenosis. If graft is supplying this territory, 0 % stenosis. kmavis 11:41 AM HR=76 bpm, HRIC=581/81 mmhg, SpO2=96.0 %, Resp=16 B/min 11:42 AM Right Coronary, Right Posterior Descending Arteries with Right Posterolateral and Acute Marginal branches with 100 % stenosis. If graft is supplying this area, 100 % stenosis kmavis 11:42 AM Time: 27 Patient comfortable and pain free: Yes kmavis 11:42 AM Time: 11:27LOC: 4 = Oriented but drowsy kmavis 11:42 AM Mid/Distal Left Anterior Descending Coronary Artery and diagonal branches with 90% stenosis. If graft is supplying this area, 0 % stenosis kmavis 11:43 AM Circumflex, Obtuse Marginal, Left Posterior Descending, and Left Posterolateral Coronary Arteries with 99 % stenosis. If graft is supplying this area, 99 % stenosis kmavis 11:47 AM HR=96 bpm, UGMO=125/79 mmhg, SpO2=96.0 %, Resp=17 B/min 11:50 AM Time: 11:50 Protamine 30 mg Intravenous Given by Mathew Woo RN avis 11:50 AM Mathew Woo RN Position: Nurse Time in: 11:50 avis 11:52 AM HR=81 bpm, DEMR=162/82 mmhg, SpO2=97.0 %, Resp=19 B/min 11:52 AM leaking around sheath, protamine given. Dr. Alston pulled 7fr. sheath at this time and holding pressure to right groin. kmavis 11:55 AM Did you address GLENYS flow and Dominance? YesCoronary Dominance: right kmavis 11:56 AM Isovue 370 - 200ml,2 Bottle(s) used. kmavis 11:57 AM HR=86 bpm, SGAM=655/76 mmhg, SpO2=98.0 %, Resp=17 B/min 11:57 AM Arterial sheath pulled using manual compression and V+ Pad for 15 minutes by Michoacano Alston MD and Harvinder Berg RN. avis 11:59 AM Complications: Hematoma >5 avis 12:00 PM At 11:59 the ACT was 149 seconds. avis 12:00 PM Plavix, Effient or Brilinta given No kmavis 12:02 PM HR=82 bpm, LWOV=655/83 mmhg, SpO2=97.0 %, Resp=21 B/min 12:07 PM HR=80 bpm, ACJU=730/84 mmhg, SpO2=98 %, Resp=20 B/min 12:12 PM HR=92 bpm, UALC=520/87 mmhg, SpO2=96.0 %, Resp=23 B/min 12:16 PM Site status Bleeding and Hematoma - Rt Groin as reported by Harvinder Berg RN at 12:15 [facility] 12:17 PM HR=81 bpm, TOTZ=720/82 mmhg, SpO2=96.0 %, Resp=20 B/min 12:26 PM pt still bleeding. manual pressure held to rt groin. [facility] 12:[address] johnson consulted [facility] 12:26 PM Time: 12:26 Protamine 30 mg Intravenous Given by Mathew Woo RN avis 12:[address] johnson in room [facility] 12:[address] johnson and dr alston agreed to fix coronary then to or tsites 12:50 PM prepping patient for lt radial cath tsites 12:58 PM Time: 12:58 Versed 1 mg Intravenous Given by Mathew Woo RN tsites 12:58 PM Time: 12:58 Fentanyl 25 mcg Intravenous Given by Mathew Woo RN tsites 12:58 PM femstop applied to right groin tsites 01:01 PM Agustina Patten RT (R) Position: Monitor Time in: 13: tsites 01:01 PM Agustina Koch RT (R) Position: Scrub Time in: 13: tsites 01: PM Sonia Stein RT (R) Position: Scrub Time in: 13: tsites 01:01 PM Mathew Woo RN Position: Master Fire Control Technician Time in: 13: tsites 01: PM William Tate RN Position: Master Fire Control Technician Time in: 13: tsites 01:02 PM Hair removed from procedure site in procedure lab using clippers. Left groin and left wrist prepped with Chloraprep by William Tate RN, then patient was draped. Skin intact. tsites 01:03 PM Time: 13:03 Patient comfortable and pain free: Yes tsites 01:03 PM Time: 13:03LOC: 4 = Oriented but drowsy tsites 01:04 PM Time: 13:04 0.5 ml Lidocaine 2% to left radial Subcutaneous Given by Michoacano Alston MD, FACC tsites 01:06 PM Access obtained by percutaneous puncture. 5Fr 10cm Terumo Glidesheath sheath placed in left Radial artery. [id number] tsites 01:06 PM Time: 13:06 Patient given 3,000 units Heparin, 200 mcg Nitroglycerin, and 2.5 mg Verapamil Intraarterial by Michoacano Alston MD, FACC. This is given to reduce risk of vessel spasm and thrombosis. tsites 01:07 PM PCI Status Urgent tsites 01:07 PM 6Fr JR 4 Runway guide catheter was used to cannulate the PCI vessel successfully. reused? No tsites 01:08 PM Inflation device was opened. tsites 01:10 PM Guide catheter removed intact. tsites 01:11 PM 6Fr LCB Runway guide catheter was used to cannulate the PCI vessel successfully. reused? No tsites 01:13 PM Guide catheter removed intact. tsites 01:13 PM 6Fr al .75 Runway guide catheter was used to cannulate the PCI vessel successfully. reused? No tsites 01:17 PM .014 PT Graphix 180cm guide wire across target lesion- successful. reused? No tsites 01:17 PM 2.0 mm x 15 mm Emerge Monorail balloon across target lesion- successful. reused? No svg to om tsites 01:18 PM Time: 13:03 Patient comfortable and pain free: Yes tsites 01:18 PM Time: 13:03LOC: 4 = Oriented but drowsy tsites 01:18 PM Balloon inflated @ 10 bhupinder for 12 seconds tsites 01:19 PM Balloon inflated @ 8 bhupinder for 8 seconds tsites 01:22 PM Balloon inflated @ 8 bhupinder for 12 seconds tsites 01:22 PM Balloon catheter removed intact. tsites 01:23 PM Filter wire inserted to target lesion. tsites 01:26 PM filter wire removed intact. tsites 01:27 PM filter wire renserted tsites 01:28 PM filter wire removed intact. tsites 01:33 PM 3.5mm x 12mm Synergy drug-eluting stent across target lesion- successful Lot #[id number] tsites 01:33 PM Stent deployed @ 12 bhupinder for 10 seconds tsites 01:34 PM Time: 13:18LOC: 4 = Oriented but drowsy tsites 01:34 PM Time: 13:18 Patient comfortable and pain free: Yes tsites 01:34 PM Time: 13:34 Versed 1 mg Intravenous Given by Mathew Woo RN tsites 01:34 PM Time: 13:34 Fentanyl 25 mcg Intravenous Given by Mathew Woo RN tsites 01:35 PM Time: 13:35 Nitroglycerin 150 mcg Intracoronary Given by Michoacano Alston MD tsites 01:36 PM ACT drawn tsites 01:37 PM 3.0mm x 28mm Synergy drug-eluting stent across target lesion- successful Lot #[id number] tsites 01:38 PM Stent deployed @ 11 bhupinder for 11 seconds tsites 01:38 PM Time: 13:38 Heparin 2500 units Intravenous Given by William Tate RN tsites 01:40 PM Time: 13:39 Adenosine 400 mcg administered Intracoronary by Michoacano Alston MD, [facility] tsites 01:42 PM Time: 13:42 Nitroglycerin 200 mcg Intracoronary Given by Michoacano Alston MD tsites 01:42 PM Time: 13:42 Adenosine 60 mcg administered Intracoronary by Michoacano Alston MD, FACC tsites 01:43 PM Time: 13:43 Adenosine 60 mcg administered Intracoronary by Michoacano Alston MD, [facility] tsites 01:43 PM Time: 13:43 Adenosine 60 mcg administered Intracoronary by Michoacano Alston MD, [facility] tsites 01:45 PM Guide wire removed intact. tsites 01:45 PM Guide catheter removed intact. tsites 01:50 PM Time: 13:34 Patient comfortable and pain free: Yes tsites 01:50 PM Time: 13:34LOC: 4 = Oriented but drowsy tsites 02:04 PM Procedure completed at 11:54 03/22/2019 tsites 02:04 PM Did you address GLENYS flow and Dominance? YesCoronary Dominance: right tsites 02:05 PM Education Methods Verbal tsites 02:05 PM Education evaluation Able to repeat information tsites 02:05 PM Site status fem stop in place no active bleeding - Rt Groin as reported by Agustina Koch RT (R) at 14:25 >5-10 cm tsites 02:05 PM Patient out of room: 14:05 tsites 02:05 PM Report given to gamal contreras Pt taken to Surgery Room . 14:05 tsites 02:05 PM Sign out completed: Radiation Dose 340 mGy, 41.3 Gy/cm2 Fluoro Time: 6.3 Isovue 370 - 200ml contrast 180 ml given by Michoacano Alston MD, [facility]. Complications: hematoma >5 . 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 Sedation minutes 180. Cardiac Rehab Consult needed: Yes. Confirmed administered medications: No tsites 02:07 PM Isovue 370 - 200ml,2 Bottle(s) used. tsites 02:07 PM Sheath left in place for or lt radial tsites 02:09 PM Estimated Blood Loss: less than 20cc tsites 02:09 PM Post ECG NSR tsites 02:09 PM Post Blood Pressure 133/71 tsites 02:09 PM 14:09 Post Pulses Lt Radial 1+ tsites 02:10 PM Information taught Cardiac Cath, PCI, and Vasc Band tsites 02:10 PM Education needs Procedure, Plan of Care, and Responsibilities of Patient in Care tsites 02:10 PM Learning barriers :None tsites 02:30 PM Lesion found in 1st Marginal. Pre Stenosis: 90 Pre GLENYS Flow: 2: Partial Flow/Perfusion (> 1 but < 3) tsites Complications Complication Hematoma Hemodynamics Pressures Site Systolic/A Wave Diastolic/V Wave Mean AO 107 80 93 AO 110 84 97 AO 114 81 98 AO 112 81 96 LV 124 13 26 LV 122 26 27 AO 115 59 84 AO 130 73 98 AO 122 73 94 Post Procedure Information Blood Pressure: 133/71 mmHg Rhythm: NSR Post procedural instructions were given Closure Device Time Device Success/Fail 03/22/2019 2:07:00 PM Mechanical Compression Successful Site Checks Time Location Status Staff Sheath In? Note 12:11 PM Rt Groin No bleeding/hematoma Harvinder Berg RN 12:15 PM Rt Groin Bleeding and Hematoma Harvinder Berg RN 02:25 PM Rt Groin Agustina Koch RT (R) >5-10 cm 02:05 PM Lt Wrist Agustina Koch RT (R) Yes Pulses Time Site Pre-Procedure Post-Procedure Note 03/22/2019 10:50:00 AM Bilateral DP & PT 1+ 03/22/2019 10:50:00 AM Bilateral radial 2+ 2:09:00 PM Lt Radial 1+ Updated by Agustina Patten RT (R) on 03/24/2019 9:43:31 AM RT Abdiel electronically signed on 03/24/2019 9:44:10 AM with status of Final
--- NOTE | 2019-03-24 12:06 | Internal Med Progress Note ---
Hospitalist Progress Note - Encounter Date of Encounter: 03/24/19 Time of Encounter: 08:03 - Subjective Interval History: Patient was seen and examined at bedside. Daughter at bedside. All questions answered. She denies chest pain or palpitations overnight. Denies numbness, tingling or loss of function of her right lower extremity. Denies tightness around the right femoral catheter site. Has not developed any new swelling. Denies abdominal pain, has had no right upper quadrant pain, denies fever, chills, nausea, vomiting or diarrhea. Has lost her appetite. However denies any abdominal pain. - Exam Vitals: Temp Pulse Resp BP Pulse Ox 98.7 F 70 16 88/44 99 03/24/19 11:23 03/24/19 11:23 03/24/19 11:23 03/24/19 11:23 03/24/19 11:23 Exam: General: Patient is alert, oriented, no acute distress, speaks in full sentences Head: atraumatic, normocephalic, Eye: normal appearance, PERRL, no scleral icterus, no conjunctival injection ENT: mucous membranes moist, normal external ear exam Neck: normal inspection, trachea midline, full ROM, Chest: normal inspection, symmetric chest rise, CABG scar is well-healed Respiratory: Good respiratory effort. Bilateral breath sounds are clear without wheezing, crackles, or rhonchi. Cardiovascular: Regular rate and rhythm. s1 and s2 Abdomen: Bowel sounds present normoactive x-4 quadrants. Abdomen is soft, nondistended. no Epigastric tenderness. No guarding or rebound. No organomegaly noted musculoskeletal: Spontaneously moving all extremities. no edema, no calf tenderness, right lower extremity is warm Skin: warm, dry, intact. has large ecchymosis of the right groin extends to the suprapubic area and also to the right lateral leg . no hematoma was palpated, dressing with minimal blood stained. Neuro: Alert and oriented x3 , no focal deficit Psych: Patient's affect is normal - Assessment and Plan (1) Post-operative hemorrhage Current Visit: Yes Status: Acute Assessment and Plan: SFA bleeding s/p vascular intervention on 03/22 continue to monitor H/H on DAPT ( recent stent) Q8H h/H trended down to 9 on 03/24 from 12 on admission continue to monitor site transfuse <8 will request vascular surgery follow up started on oral iron (2) Non-STEMI (non-ST elevated myocardial infarction) Current Visit: Yes Status: Acute Assessment and Plan: s/p LHC on 03/22 PCI with placement of nonoverlapping ORA x2. History of CAD s/p CABG x3 in 2005 and LHC in 2014 with stent placement in proximal SVG to OM graft. continue DAPT, Statin BB and ACEI on hold secondary to hypertension cardiology on board (3) HFrEF (heart failure with reduced ejection fraction) Current Visit: Yes Status: Acute Assessment and Plan: TTE on 03/22 with HFREF LVEF 20-25%.- full report below all medications on hold as she is hypotesnive - discussed case with cardiolgy will follow recs life vest was ordered by cardiology team TTE: 03/22 Impressions: LVEF 20-25%. Normal LV chamber size. Severe segmental left ventricular systolic dysfunction. Mild left ventricular diastolic dysfunction. Atypical septal motion consistent with post-operative status. Normal right ventricular size, mildly reduced function. Moderate-severe tricuspid regurgitation. Severe pulmonary hypertension. Estimated RVSP is 66 mmHg. (4) Cholelithiasis Current Visit: Yes Status: Acute Assessment and Plan: Cholelithiasis incidentally noted- on CT of the chest with a moderately dilated gallbladder. RUQ US on 03/24- Choledocholithiasis without significant biliary dilatation discussed with GI- as she is asymptomatic they recommended to continue to monitor LFTs if she becomes symptomatic or if LFts trend up they recommended to transfer to tertiary center LFTs in AM currently tolerating diet with out nausea, vomiting or abdominal pain has no fever or leukocytosis - will defer starting ABx and further imaging MRCP to GI CTA A/P Cholelithiasis and choledocholithiasis. There are 3 small adjacent calculi in a linear configuration in the distal common bile duct. The gallbladder is moderately dilated. There is minimal bile duct dilatation. Follow-up ERCP would be helpful. RUQ US: IMPRESSION: 1. Choledocholithiasis without significant biliary dilatation. 2. Cholelithiasis with mucosal thickening and pericholecystic fluid. Pattern suspected to represent acute cholecystitis. (5) Hypertension Current Visit: Yes Status: Chronic Assessment and Plan: home meds on hold- she is hypotensive cardiology on board will follow recs (6) Major laceration of femoral artery Current Visit: Yes Status: Acute Assessment and Plan: developed during procedure vascular surgery on board s/p OR adn repair on 03/22 continue to monitor site rest of the management as per vascular surgery (7) DVT prophylaxis Current Visit: Yes Status: Acute Assessment and Plan: scds - Time Spent with Patient Total time spent is greater than 50% in coordination of care (as documented) at patient's floor/unit and/or counseling patient: Internal Medicine: Result - Labs CBC & Chem 7: 03/24/19 06:20 03/24/19 06:20 Labs: Short CBC 03/24/19 Range/Units 06:20 WBC 10.3 (4.3-11.1) K/mcL Hgb 9.1 L (11.5-15.4) g/dL Hct 28.3 L (35.3-44.9) % Plt Count 136 L (140-400) K/mcL BMP 03/24/19 06:20 Sodium 141 Potassium 3.8 Chloride 108 H Carbon Dioxide 23 BUN 25 H Creatinine 1.42 H Glucose 117 H Calcium 8.9 Liver Function 03/24/19 Range/Units 06:20 Total Bilirubin 0.6 (0.3-1.0) mg/dL AST 53 H (13-39) Units/L ALT 10 (7-52) Units/L Alkaline Phosphatase 36 (34-104) Units/L Albumin 3.0 L (3.5-5.7) g/dL - ABG Interpretation ABG results: PT/INR, D-dimer PT 12.6 Seconds (9.4-12.1) H 03/22/19 07:03 - Impressions Impressions Echocardiogram 03/22/19 02:08 Impressions: LVEF 20-25%. Normal LV chamber size. Severe segmental left ventricular systolic dysfunction. Mild left ventricular diastolic dysfunction. Atypical septal motion consistent with post-operative status. Normal right ventricular size, mildly reduced function. Moderate-severe tricuspid regurgitation. Severe pulmonary hypertension. Estimated RVSP is 66 mmHg. Left Ventricular Wall Motion: Rest Echo Findings The apex, apical inferior, mid inferior, apical anterior, mid anterior, apical septal, mid inferior septal, apical lateral, mid anterior lateral, mid anterior septal and mid inferior lateral garcia were hypokinetic. All other wall segments showed normal motion. Findings: Study Quality * Technically sub-optimal due to poor echocardiographic windows. ECG Findings * Normal sinus rhythm. Left Ventricle * LVEF 20-25%. * Normal LV chamber size. * Severe segmental left ventricular systolic dysfunction. * Mild left ventricular diastolic dysfunction. * Atypical septal motion consistent with post-operative status. Right Ventricle * Normal right ventricular size, mildly reduced function. Left Atrium * Mildly dilated left atrium. Right Atrium * Normal right atrial size. Interatrial Septum * Interatrial septum not well evaluated. Aortic Valve * Aortic valve not well visualized. * Grossly, mildly sclerotic aortic valve leaflets. * Trace aortic regurgitation. * No aortic stenosis. Mitral Valve * Mildly thickened mitral valve leaflets. * Trace mitral regurgitation. * No mitral stenosis. Tricuspid Valve * Normal tricuspid valve structure. * Moderate-severe tricuspid regurgitation. * Severe pulmonary hypertension. * Estimated RVSP is 66 mmHg. * Estimated RA pressure is 5 mmHg. Pulmonic Valve * Normal pulmonic valve structure. * Mild pulmonic regurgitation. Aorta * Normally sized aortic root. Pericardium * The pericardium appears normal. IVC * The IVC is not dilated. * < 50% respiratory change. Pulmonary Artery * Pulmonary artery not well visualized. Abdomen Ultrasound 03/24/19 07:00 IMPRESSION: 1. Choledocholithiasis without significant biliary dilatation. 2. Cholelithiasis with mucosal thickening and pericholecystic fluid. Pattern suspected to represent acute cholecystitis. D/ / Dinesh Lema MD / Dinesh Lema MD Interpreting Provider: Dinesh Lema MD Consult Discharge Plan - Plan Referrals: Charles Staples MD [Partnered Physician] - 04/06/19 2:10 pm Teofilo Alcantara MD [Primary Care Provider] - 04/05/19 9:15 am ____ (1) Post-operative hemorrhage Qualifiers: Surgical complication system/body Area: subcutaneous tissue Procedure type: non-dermatologic Qualified Code(s): L76.22 - Postprocedural hemorrhage of skin and subcutaneous tissue following other procedure (3) HFrEF (heart failure with reduced ejection fraction) Qualifiers: Heart failure chronicity: acute Qualified Code(s): I50.21 - Acute systolic (congestive) heart failure (4) Cholelithiasis Qualifiers: Cholelithiasis location: gallbladder and bile duct Cholecystitis presence: without cholecystitis Biliary obstruction: with biliary obstruction Qualified Code(s): K80.71 - Calculus of gallbladder and bile duct without cholecystitis with obstruction (5) Hypertension Qualifiers: Hypertension type: essential hypertension Qualified Code(s): I10 - Essential (primary) hypertension (6) Major laceration of femoral artery Qualifiers: Encounter type: initial encounter Laterality: right Qualified Code(s): S75.021A - Major laceration of femoral artery, right leg, initial encounter
[2019-03-24] MEDS ORDERED: 0.9 % Sodium Chloride 1,000 ML IVC SCH (12:15)
--- NOTE | 2019-03-24 12:49 | Electrocardiograph Report ---
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
[2019-03-24 13:10] LABS: Hematocrit 29.1 % (35.3-44.9); Hemoglobin 9.2 g/dL (11.5-15.4)
--- NOTE | 2019-03-24 13:44 | Cardiology Progress Note ---
Date of Encounter: 03/24/19 Time of Encounter: 13:42 Assessment and Plan (1) Non-STEMI (non-ST elevated myocardial infarction) Current Visit: Yes Status: Acute Peak troponin 4.24. C 03/22 There is severe 3VCAD. Patient had successful PTCA/ORA placement in the SVG to OM. [place] OM tortuous and could not pass 2.0 compliant balloon. S/P CABG 3 of 3 patent bypass grafts. DAPT (ASA and Plavix) uninterrupted x 1 year. Pt verbalizes understanding. Continue Statin, BB. TTE LVEF 20-25%. Severe segmental LV systolic dysfunction. Mild LVDD. Atypical septal motion c/w post-operative status. Normal RV size, mildly reduced function. Moderate-severe tricuspid regurgitation. Severe phtn. Estimated RVSP is 66 mmHg. Reconsulted today for anemia and EDIS. Developed right superficial femoral artery hemorrhage s/p [facility] and underwent femoral artery repair with Dr. Staples 03/22/19. HGB has dropped--12.4 on admission. Was 10.0 03/23 and 9.1, then 9.2 03/24. Curren tly stable. Suspect decline secondary to superficial artery hemorrhage. Significant amount of ecchymosis noted at groin site extending to thigh. Now with EDIS--Creatinine 1.42. Suspect secondary to hypotension-systolic BP 80s. On Coreg 6.25mg BID and Lisinopril 40mg daily. Will hold ACEi. Decrease BB to 3.125mg BID. Give 500cc of IV fluids for hypotension and EDIS. Will continue to follow until labs and vitals are stable. Discussed and reviewed with Dr. Kearney. (2) Ischemic cardiomyopathy Current Visit: Yes Status: Acute LVEF 20-25%. Severe segmental LV systolic dysfunction. Mild LVDD. Atypical septal motion consistent with post-operative status. Normal RV size, mildly reduced function. Moderate-severe tricuspid regurgitation. Severe phtn. Estimated RVSP is 66 mmHg. Euvolemic on exam. Ischemic CMP s/p PCI 03/22 to SVG to OM. [place] OM tortuous and could not pass 2.0 compliant balloon. S/P CABG 3 of 3 patent bypass grafts. No ventricular arrhythmias noted on tele. Dr. Hernandez recommended lifevest prior to d/c. This has been ordered. Plan to re-evaluate EF in 3 months to determine if ICD is warranted. (3) CAD (coronary artery disease) Current Visit: Yes Status: Acute Hx CAD s/p CABG. S/P PCI as above. Continue ASA, Plavix, BB. Hx of intolerance to statin therapy d/t myalgias; agreeable to a trial of a different statin, as she has only tried atorvastatin in the past. Started crestor 10mg, with plan to increase as tolerated. Qualifiers: Coronary Disease-Associated Artery/Lesion type: bypass graft [place] vs. transplanted heart: [place] heart Associated angina: with unstable angina Qualified Code(s): I25.700 - Atherosclerosis of coronary artery bypass graft(s), unspecified, with unstable angina pectoris Discussion w patient/family: The assessment and plan as outlined above was discussed with the patient and/or family members who expressed understanding and agreement. All questions were answered. Thank you for involving us in the care of your patient. Please call with any questions. I will discuss all the above with Dr. Kearney and make changes as necessary. Subjective Principal diagnosis: NSTEMI Interval history: Pt denies chest pain or dyspnea. Reconsulted for drop in H&H and worsening renal function, s/p LHC. Objective Vital Signs, Last 4 Hours Temp Pulse Resp BP Pulse Ox 03/24/19 11:23 98.7 F 70 16 88/44 99 03/24/19 11:05 69 16 95 Vital Signs Temp Pulse Resp BP Pulse Ox 03/24/19 11:23 98.7 F 70 16 88/44 99 03/24/19 11:05 69 16 95 03/24/19 09:05 70 16 86/50 95 03/24/19 04:25 76 85/49 94 03/24/19 03:51 98.0 F 86 17 85/55 92 03/24/19 00:15 79 85/53 93 03/23/19 23:41 98.1 F 78 16 91/64 92 03/23/19 19:39 98.2 F 92 17 99/58 100 03/23/19 16:14 98.5 F 104 17 98/55 98 03/23/19 15:50 98.5 F 104 17 98/55 98 Intake and Output 03/23/19 03/24/19 03/24/19 23:59 07:59 15:59 Intake Total 0 / 620 120 / 120 Balance 0 / 270 120 / 120 Intake: Oral 0 / 520 120 / 120 Other: Meal Dinner Lunch Percent of Meal Consumed 0% 60% # Voids 1 1 General: Conversant, No Apparent Distress HEENT: Atraumatic, Normocephaly, Mucus Membranes Moist Neck: No JVD, Normal carotid pulses Cardiac: Reg Rate and Rhythm, Normal S1 and S2, No Murmur Lungs: Normal Breath Sounds, No Wheeze, Rales, Rhonchi Neuro: Alert and responsive, No focal deficits noted Abdomen: Soft, Non-Tender Skin: Other (right femoral access site with significant amount of ecchymosis. No active bleeding.) Musculoskeletal: No Chest Wall Tenderness Extremities: No Clubbing, No Cyanosis, No Edema, Normal Pulses Results 03/24/19 12:50 03/24/19 06:20 Lab Results 03/24/19 03/24/19 03/24/19 06:20 06:20 12:50 WBC 10.3 Hgb 9.1 L 9.2 L Hct 28.3 L 29.1 L Plt Count 136 L Sodium 141 Potassium 3.8 Chloride 108 H Carbon Dioxide 23 BUN 25 H Creatinine 1.42 H Glucose 117 H Calcium 8.9 Total Bilirubin 0.6 AST 53 H ALT 10 Alkaline Phosphatase 36 Short CBC 03/24/19 03/24/19 Range/Units 12:50 06:20 WBC 10.3 (4.3-11.1) K/mcL Hgb 9.2 L 9.1 L (11.5-15.4) g/dL Hct 29.1 L 28.3 L (35.3-44.9) % Plt Count 136 L (140-400) K/mcL [facility] 03/24/19 Range/Units 06:20 Sodium 141 (136-145) mEq/L Potassium 3.8 (3.5-5.1) mEq/L Chloride 108 H (98-107) mEq/L Carbon Dioxide 23 (23-29) mEq/L BUN 25 H (8-23) mg/dL Creatinine 1.42 H (0.60-1.20) mg/dL Glucose 117 H (70-105) mg/dL Calcium 8.9 (8.6-10.3) mg/dL Liver Function 03/24/19 Range/Units 06:20 Total Bilirubin 0.6 (0.3-1.0) mg/dL AST 53 H (13-39) Units/L ALT 10 (7-52) Units/L Alkaline Phosphatase 36 (34-104) Units/L Albumin 3.0 L (3.5-5.7) g/dL Impressions Abdomen Ultrasound 03/24/19 07:00 IMPRESSION: 1. Choledocholithiasis without significant biliary dilatation. 2. Cholelithiasis with mucosal thickening and pericholecystic fluid. Pattern suspected to represent acute cholecystitis. D/ / Dinesh Lema MD / Dinesh Lema MD Interpreting Provider: Dinesh Lema MD Active Medications Acetaminophen (Tylenol) 650 mg PO Q6HR PRN PRN Reason: Mild Pain/Fever Stop: 09/21/19 17:59 Hydrocodone Bitart/Acetaminophen ([place] 5-325 Mg) 1 tab PO Q6HR PRN PRN Reason: Moderate Pain Stop: 09/21/19 17:59 Alprazolam (Xanax) 0.5 mg PO DAILY PRN; Protocol PRN Reason: Anxiety Stop: 09/21/19 10:46 Aspirin (Aspirin Ec) 81 mg PO DAILY [facility] Stop: 09/21/19 09:01 Last Admin: 03/24/19 09:23 Dose: 81 mg Documented by: Carvedilol (Coreg) 6.25 mg PO BIDWM [facility]; Protocol Stop: 09/21/19 08:01 Last Admin: 03/23/19 15:53 Dose: 6.25 mg Documented by: Clopidogrel Bisulfate (Plavix) 75 mg PO DAILY [facility] Stop: 09/21/19 09:01 Last Admin: 03/24/19 09:23 Dose: 75 mg Documented by: Ferrous Sulfate (Ferrous Sulfate) 325 mg PO BIDWM [facility] Stop: 09/23/19 17:01 Levothyroxine Sodium (Synthroid) 50 mcg PO 0630 [facility] Stop: 09/21/19 06:31 Last Admin: 03/24/19 06:27 Dose: Not Given Documented by: Lisinopril (Zestril) 40 mg PO DAILY [facility]; Protocol Stop: 09/21/19 09:01 Last Admin: 03/23/19 07:40 Dose: 40 mg Documented by: Naloxone HCl (Narcan) 0.4 mg IVP Q2MPRN PRN PRN Reason: SEE COMMENTS Stop: 09/21/19 02:06 Omeprazole (Prilosec) 40 mg PO DAILY [facility] Stop: 09/21/19 09:01 Last Admin: 03/24/19 09:23 Dose: 40 mg Documented by: Ondansetron HCl (Zofran) 4 mg IVP Q8HR PRN PRN Reason: Nausea And Vomiting Stop: 09/21/19 02:06 Oxycodone HCl (Roxicodone) 10 mg PO Q6HR PRN PRN Reason: Severe Pain Stop: 09/21/19 17:59 Rosuvastatin Calcium (Crestor) 10 mg PO HS [facility] Stop: 09/22/19 21:01 Last Admin: 03/23/19 20:06 Dose: 10 mg Documented by: - Imaging and Cardiology Echo: report reviewed Cardiac cath: report reviewed - EKG Interpretation EKG results cardiology: other (12 hr tele AVG HR) Consult Discharge Plan - Plan Referrals: Charles Staples MD [Partnered Physician] - 04/06/19 2:10 pm Teofilo Alcantara MD [Primary Care Provider] - 04/05/19 9:15 am
--- NOTE | 2019-03-24 14:30 | Gastroenterology Consult Note ---
<Israel Pachecon Augusto - Last Filed: 03/24/19 14:23> Date of Encounter: 03/24/19 Time of Encounter: 09:30 - Assessment and plan (1) Choledocholithiasis Status: Acute Assessment and plan: 88 year old female who presents with chest pain, was found to have an OK and is status post coronary stenting. CT abdomen also shows cholelithiasis and choledocholithiasis. US abdomen was repeated today and shows 2 small stones in the CBD without obstruction or dilation. Pt is asymptomatic and LFTs are wnl. Discussed with Dr Maya and he advises monitoring pt as she is asymptomatic, had recent cardiac intervention and is on asa and Plavix. If pt has increasing abdominal pain, nausea, vomiting, or increasing LFTs will need transfer to tertiary facility for ERCP. Dr Gilbert is currently out of town and will not return until April 05. (2) Cholelithiasis Status: Acute Qualifiers: Cholelithiasis location: gallbladder and bile duct Cholecystitis presence: without cholecystitis Biliary obstruction: with biliary obstruction Qualified Code(s): K80.71 - Calculus of gallbladder and bile duct without cholecystitis with obstruction - Time Spent With Patient Total time spent is greater than 50% in coordination of care (as documented) at patient's floor/unit and/or counseling patient: GI History of Present Illness - Data of Consult Patient: new to practice Consult date: 03/24/19 Requesting Physician: Vickie Harris MD - Consult Narrative Reason for consult: choledocholithiasis History of present illness: Ms. Bansal is a 88 year old female with a past medical history of coronary artery disease status post CABG in 2005. She presented to the ED with complaints of chest pain. Laboratory workup notable for a elevated troponin of 0.21. EKG showed sinus rhythm the absence of any ST or T-wave changes concerning for ischemia. Given her reports of pain radiating to her back and her hypertension a CT dissection study was performed which was negative for aortic dissection. It did show evidence of cholelithiasis with a moderately dilated gallbladder and choledocholithiasis. Pt had LHC with ORA placement on 03/22. Gi was consulted for choledocholithiasis. Pt is alert and oriented, she denies any abdominal pain, nausea, or vomiting. She does report some poor appetite recently. NSAIDS: ASA 81 mg Anticoagulants: Plavix Past Med Surg Social Fam HX - Past Medical History Medical history: arthritis, coronary artery disease, hyperlipidemia, hypertension, thyroid disease Additional medical history: SLEEP APNEA, ANEMIA, CATARACTS, Psychiatric history: no psych history - Past Surgical History Surgical History: coronary bypass (CABG) Additional surgical history: BUNIONECTOMY, CSECTION X2, LEFT ARM SURGERY, RIGHT FOOT SURGERY, TRIPLE BYPASS November 2005, - Social History Smoking Status: Former smoker Smokeless Tobacco Status: No Alcohol use: none Drug use: none - Family History Mother Hx Family Cardiac Disorders: Yes Father Living Status: Hx Family Cardiac Disorders: Yes Review of Systems: GI: as per [place] GENERAL: denies fever or chills EYES: denies yellow discoloration ENT: denies pain with swallowing or difficulty swallowing CARDIO: see HPI RESP: No Shortness of breath with exertion : denies change in color of urine NEURO: denies any weakness HEME: Denies any bruising MS: denies joint pain, joint swelling or back pain. DERM: denies rash or itching PSYCH: Denies history of anxiety or depression - Constitutional Vitals: Temp Pulse Resp BP Pulse Ox 98.7 F 70 16 88/44 99 03/24/19 11:23 03/24/19 11:23 03/24/19 11:23 03/24/19 11:23 03/24/19 11:23 Exam: CONSTITUTIONAL:alert, no acute distress.HEAD:normocephalic.EYES:no jaundice.NECK:no obvious swelling.HEART:regular rate and rhythm, no murmurs.LUNGS:bilateral good air entry.ABDOMEN:non distended, soft, non tender, no masses palpable, no organomegaly.RECTAL EXAM:Deferred.EXTREMITIES:no clubbing, cyanosis or edema, large bruise noted to right hip and thigh, dressing noted to right groin.SKIN:no stigmata of chronic liver disease.NEUROLOGIC:no obvious focal defect. Results - Labs CBC & Chem 7: 03/24/19 12:50 03/24/19 06:20 Labs: Last Result 03/24/19 06:20 Calcium 8.9 Entire Visit 03/24/19 03/24/19 03/24/19 06:20 06:20 12:50 Hgb 9.1 L 9.2 L Hct 28.3 L 29.1 L Total Bilirubin 0.6 AST 53 H ALT 10 - ABG ABG results: PT/INR, D-dimer PT 12.6 Seconds (9.4-12.1) H 03/22/19 07:03 - Impressions Impressions Abdomen Ultrasound 03/24/19 07:00 IMPRESSION: 1. Choledocholithiasis without significant biliary dilatation. 2. Cholelithiasis with mucosal thickening and pericholecystic fluid. Pattern suspected to represent acute cholecystitis. D/ / Dinesh Lema MD / Dinesh Lema MD Interpreting Provider: Dinesh Lema MD Consult Discharge Plan - Plan Instructions: Iron Supplements (By mouth), Furosemide (By mouth), Aspirin (By mouth), Carvedilol (By mouth), Clopidogrel (By mouth), Rosuvastatin (By mouth), Coronary Intravascular Stent Placement (DC), Anemia (GEN), Coronary Intravascular Stent Placement, [place] (GEN) Referrals: Charles Staples MD [Partnered Physician] - 03/30/19 1:40 pm Teofilo Alcantara MD [Primary Care Provider] - 03/30/19 8:30 am Sonia Salinas MD [Partnered Physician] - 04/14/19 12:50 pm Wisam Gilbert MD [Partnered Physician] - (Sent web request on 03-26-19 @ 1001) Prescriptions: Aspirin [Adult Aspirin Regimen] 81 mg PO DAILY #30 tablet.dr Leslieilol [Coreg] 3.125 mg PO BID 30 Days #30 tablet Rosuvastatin [Crestor] 10 mg PO HS #30 tablet Ferrous Sulfate 325 mg PO BIDWM 14 Days #28 tablet Furosemide [Lasix] 20 mg PO MOTUWETHFRSA #30 tablet Clopidogrel [Plavix] 75 mg PO DAILY #30 tablet <Rodger Maya - Last Filed: 03/29/19 04:13> Date of Encounter: 03/24/19 - Time Spent With Patient Total time spent is greater than 50% in coordination of care (as documented) at patient's floor/unit and/or counseling patient: GI History of Present Illness - Data of Consult Requesting Physician: Vickie Harris MD - Consult Narrative History of present illness: Ms. Bansal is a 88 year old female - Constitutional Vitals: Temp Pulse Resp BP Pulse Ox 98.5 F 75 18 137/66 97 03/26/19 09:00 03/26/19 09:00 03/26/19 09:00 03/26/19 09:00 03/26/19 09:00 Results - Labs CBC & Chem 7: 03/26/19 05:38 03/26/19 05:38 - ABG ABG results: PT/INR, D-dimer PT 12.6 Seconds (9.4-12.1) H 03/22/19 07:03 - Attending Attestation 88 year old female with asymptomatic choledocholithiasis (floating small stones) and cholelithiasis in a setting of acute OK. Plan close monitonng and avoid i ntervention as she is asymptomatic and her liver associated enzymes are normal. Further recommendations to follow. I have personally performed a face to face evaluation on this patient. I have reviewed and agree with the care plan. History and Exam by me shows:
[2019-03-24] MEDS: 0.9 % Sodium Chloride 500 ML IVC SCH (15:39)
[2019-03-24 20:04] LABS: Hematocrit 26.5 % (35.3-44.9); Hemoglobin 8.8 g/dL (11.5-15.4)
--- NOTE | 2019-03-24 22:17 | Vascular/[facility] Progress Note ---
Date of Encounter: 03/24/19 Time of Encounter: 14:00 - Assessment and plan (1) Major laceration of femoral artery Current Visit: Yes Status: Acute The patient is postoperative day #2 after repair of the right femoral artery. She is healing well. She is neurovascularly intact. She has no evidence of hematoma or ongoing blood loss. Her decline in her hemoglobin is likely secondary to acute expected blood loss after her recent arterial laceration. S he may follow up in vascular clinic after discharge. Qualifiers: Encounter type: initial encounter Laterality: right Qualified Code(s): S75.021A - Major laceration of femoral artery, right leg, initial encounter - Subjective Interval history: The patient is alert and calm pole. She reports normal postoperative pain. She denies any acute worsening abdominal, flank or inguinal pain. She denies any chest pain or shortness of breath. Vital Signs, Last 4 Hours Temp Pulse Resp BP Pulse Ox 03/24/19 19:11 98.2 F 72 16 100/47 100 - Physical Examination General: Present: Conversant Cardiac: Present: Reg Rate and Rhythm Lungs: Present: Normal Breath Sounds Neuro: Present: Alert and responsive Vascular: Present: Normal capillary refill, Surgical incisions (Clean, dry and intact without erythema or drainage, no hematoma), Other (Ecchymosis is present along the proximal thigh and lower abdomen. There is no pulsatile mass or expanding hematoma). Absent: Cyanosis, Edema Abdomen: Present: Soft Skin: Present: No rashes noted on visualized skin Results 03/24/19 19:50 03/24/19 06:20 Lab Results, Last 24 hours 03/24/19 03/24/19 03/24/19 06:20 06:20 12:50 WBC 10.3 Hgb 9.1 L 9.2 L Hct 28.3 L 29.1 L Plt Count 136 L Sodium 141 Potassium 3.8 Chloride 108 H Carbon Dioxide 23 BUN 25 H Creatinine 1.42 H Glucose 117 H Calcium 8.9 Total Bilirubin 0.6 AST 53 H ALT 10 Alkaline Phosphatase 36 03/24/19 19:50 WBC Hgb 8.8 L Hct 26.5 L Plt Count Sodium Potassium Chloride Carbon Dioxide BUN Creatinine Glucose Calcium Total Bilirubin AST ALT Alkaline Phosphatase Consult Discharge Plan - Plan Referrals: Charles Staples MD [Partnered Physician] - 04/06/19 2:10 pm Teofilo Alcantara MD [Primary Care Provider] - 04/05/19 9:15 am
[2019-03-25 01:51] LABS: Hematocrit 26.2 % (35.3-44.9); Hemoglobin 8.2 g/dL (11.5-15.4)
[2019-03-25 02:06] LABS: Albumin 2.9 g/dL (3.5-5.7); Albumin/Globulin Ratio 1.4 (1.1-2.2); Bilirubin,Total 0.5 mg/dL (0.3-1.0); Calcium 8.7 mg/dL (8.6-10.3); Globulin 2.1 g/dL (2.4-3.5); Potassium 3.6 mEq/L (3.5-5.1)
[2019-03-25] MEDS: Aspirin Enteric Coated 81 MG Tablet PO SCH (08:56)
--- NOTE | 2019-03-25 09:14 | Cardiology Progress Note ---
<Ramya Albrecht N - Last Filed: 03/25/19 11:28> Date of Encounter: 03/25/19 Time of Encounter: 09:12 Assessment and Plan (1) Non-STEMI (non-ST elevated myocardial infarction) Current Visit: Yes Status: Resolved Peak troponin 4.24. [facility] 03/22/19 demonstrated severe 3V CAD. Patient had successful PTCA/ORA placement in the SVG to OM. [place] OM tortuous and could not pass 2.0 compliant balloon. S/P CABG 3 of 3 patent bypass grafts. Continue DAPT (ASA and Plavix) uninterrupted x 1 year, along with statin and beta jeremie. (2) Ischemic cardiomyopathy Current Visit: Yes Status: Acute Echocardiogram on 03/22/2019 demonstrated LVEF 20-25%. Severe segmental LV systolic dysfunction. Mild LV diastolic dysfunction. Atypical septal motion consistent with post-operative status. Normal RV size, mildly reduced function. Moderate-severe tricuspid regurgitation. Severe pulmonary hypertension. Estimated RVSP is 66 mmHg. Patient noted to be hypotensive yesterday, which improved after cautious IV fluid hydration and lasix hold. On exam today, patient appears euvolemic. Recommend against fluid restriction at this time due to recent hypotension. Continue cardiac diet. Continue reduced dose of coreg 3.125mg BID, with plan to uptitrate as needed in the outpatient clinic. Hold lasix; plan to restart 20mg daily dose at time of hospital discharge. (3) Post-operative hemorrhage Current Visit: Yes Status: Acute Likely secondary to blood loss from laceration of superficial femoral artery during [facility]. Initial hemoglobin at the time of admission was WNL at 12.4; hemoglobin drop to 10.0 noted on 03/23/2019, with further downtrend to 8.2 early this morning. Patient was hypotensive yesterday, which did improve after slow administration of IV fluids. Most recent hemoglobin appears stable at 9.4. Patient denies any symptoms related to her anemia, including dizziness, lightheadedness, SOB, or weakness. Though she has extensive ecchymosis of the right groin, this is reportedly unchanged from yesterday; patient also denies pain or increased swelling in this area, concerning for ongoing bleed. She has been tolerating increased PO intake today, and does not appear to be fluid overloaded. Recommend avoiding blood transfusion unless hemoglobin <7 or acute hemorrhage, due to risk of fluid overload. Continue to monitor hemoglobin and hematocrit for signs of worsening anemia. Qualifiers: Surgical complication system/body Area: subcutaneous tissue Procedure type: non-dermatologic Qualified Code(s): L76.22 - Postprocedural hemorrhage of skin and subcutaneous tissue following other procedure (4) CAD (coronary artery disease) Current Visit: Yes Status: Acute Hx CAD s/p CABG and PCI as above. Continue aspirin, plavix, and coreg 3.125mg BID. Patient has a history of intolerance to statin therapy due to severe myalgias; however, she is agreeable to a trial of a different statin, as she has only tried atorvastatin. Patient was started on crestor 10mg, and appears to be tolerating it without complication. Patient will need prescription prior to discharge; will uptitrate as tolerated in the outpatient clinic. Qualifiers: Coronary Disease-Associated Artery/Lesion type: bypass graft [place] vs. transplanted heart: [place] heart Associated angina: with unstable angina Qualified Code(s): I25.700 - Atherosclerosis of coronary artery bypass graft(s), unspecified, with unstable angina pectoris (5) EDIS (acute kidney injury) Current Visit: Yes Status: Acute Suspect secondary to dehydration and poor PO intake. Agree with d/c lisinopril and hold on lasix. Recommend encouraged PO intake, particularly of fluids. Plan to restart lasix at time of discharge. Will re-initiate therapy with lisinopril in the outpatient setting. Discussion w patient/family: The assessment and plan as outlined above was discussed with the patient and/or family members who expressed understanding and agreement. All questions were answered. Thank you for involving us in the care of your patient. Please call with any questions. Subjective Principal diagnosis: NSTEMI Interval history: Ms. Basnal was seen and evaluated at the bedside. She voices no complaints, and states that she is feeling better today. She denies any chest pain, shortness of breath, dizziness, lightheadedness, or fatigue. Patient was noted to be hypotensive yesterday; however, this is improved today. She was also noted to be acutely anemic, with concern for ongoing blood loss. Type and screen has been performed; however, patient and her daughter express hesitancy to have transfusion, and state that they would like a recommendation from all of her providers prior to proceeding. Patient denies any other concerns at this time. Objective Vital Signs, Last 4 Hours Temp Pulse Resp BP Pulse Ox 03/25/19 06:42 98.9 F 78 16 105/49 96 General: Conversant, No Apparent Distress HEENT: Atraumatic, Normocephaly, Mucus Membranes Moist Neck: No JVD, Normal carotid pulses Cardiac: Reg Rate and Rhythm, Normal S1 and S2, No Murmur Lungs: Normal Breath Sounds, No Wheeze, Rales, Rhonchi Neuro: Alert and responsive, No focal deficits noted Abdomen: Soft, Non-Tender Skin: No rashes noted on visualized skin Musculoskeletal: No Chest Wall Tenderness Extremities: No Clubbing, No Cyanosis, No Edema, Normal Pulses Results 03/25/19 10:05 03/25/19 01:16 Lab Results 03/24/19 03/24/19 03/25/19 12:50 19:50 01:16 Hgb 9.2 L 8.8 L 8.2 L Hct 29.1 L 26.5 L 26.2 L Sodium Potassium Chloride Carbon Dioxide BUN Creatinine Glucose Calcium Total Bilirubin AST ALT Alkaline Phosphatase Amylase Lipase 03/25/19 01:16 Hgb Hct Sodium 139 Potassium 3.6 Chloride 109 H Carbon Dioxide 24 BUN 33 H Creatinine 1.48 H Glucose 113 H Calcium 8.7 Total Bilirubin 0.5 AST 43 H ALT 9 Alkaline Phosphatase 37 Amylase 55 Lipase 20 Consult Discharge Plan - Plan Referrals: Charles Staples MD [Partnered Physician] - 04/06/19 2:10 pm Teofilo Alcantara MD [Primary Care Provider] - 04/05/19 9:15 am < A - Last Filed: 03/25/19 23:20> Date of Encounter: 03/25/19 Assessment and Plan Discussion w patient/family: The assessment and plan as outlined above was discussed with the patient and/or family members who expressed understanding and agreement. All questions were answered. Thank you for involving us in the care of your patient. Please call with any questions. Results 03/25/19 10:05 03/25/19 01:16 Lab Results 03/25/19 03/25/19 03/25/19 01:16 01:16 10:05 Hgb 8.2 L 9.4 L Hct 26.2 L 28.5 L Sodium 139 Potassium 3.6 Chloride 109 H Carbon Dioxide 24 BUN 33 H Creatinine 1.48 H Glucose 113 H Calcium 8.7 Total Bilirubin 0.5 AST 43 H ALT 9 Alkaline Phosphatase 37 Amylase 55 Lipase 20 - Attending Attestation I have personally performed a face to face evaluation on this patient. I have reviewed and agree with the documented findings and care plan as documented by the [employer]. History and Exam by me shows: Continue oral rehydration and monitor hemoglobin and creatinine. If trending up and down respectively, patient may be discharged from cardiac standpoint. Thanks, Yunior Kearney MD [facility]
[2019-03-25 10:48] LABS: Hematocrit 28.5 % (35.3-44.9); Hemoglobin 9.4 g/dL (11.5-15.4)
--- NOTE | 2019-03-25 13:14 | Internal Med Progress Note ---
Hospitalist Progress Note - Encounter Date of Encounter: 03/25/19 Time of Encounter: 08:00 - Subjective Interval History: Patient was seen and examined at bedside. I discussed her hemoglobin had trended down to 8.4 and will repeat CBC again and if it trends below 8 we will have to transfuse patient and daughter both at bedside understand. Currently sh omi denies any chest pain has had no difficulty with shortness of breath or palpitations. Has been out of bed to chair without any difficulty. Pain is controlled. Denies loss of sensation, numbness or tingling of the right lower extremity. - Exam Vitals: Temp Pulse Resp BP Pulse Ox 97.6 F 63 16 102/49 97 03/25/19 11:41 03/25/19 11:41 03/25/19 11:41 03/25/19 11:41 03/25/19 11:41 Exam: General: Patient is alert, oriented, no acute distress, speaks in full sentences Head: atraumatic, normocephalic, Eye: normal appearance, PERRL, no scleral icterus, no conjunctival injection ENT: mucous membranes moist, normal external ear exam Neck: normal inspection, trachea midline, full ROM, Chest: normal inspection, symmetric chest rise, CABG scar is well-healed Respiratory: Good respiratory effort. Bilateral breath sounds are clear without wheezing, crackles, or rhonchi. Cardiovascular: Regular rate and rhythm. s1 and s2 Abdomen: Bowel sounds present normoactive x-4 quadrants. Abdomen is soft, n ondistended. no Epigastric tenderness. No guarding or rebound. No organomegaly noted musculoskeletal: Spontaneously moving all extremities. no edema, no calf tenderness, right lower extremity is warm Skin: warm, dry, intact. has large ecchymosis of the right groin extends to the suprapubic area and also to the right lateral leg . no hematoma was palpated, Neuro: Alert and oriented x3 , no focal deficit Psych: Patient's affect is normal - Assessment and Plan (1) Post-operative hemorrhage Current Visit: Yes Status: Acute Assessment and Plan: SFA bleeding s/p vascular intervention on 03/22 continue to monitor H/H on DAPT ( recent stent) Q8H h/H trended down to 8.4 on 03/25 from 12 on admission continue to monitor site transfuse <8 vascular surgery Babak appreciated started on oral iron (2) Acute renal failure (ARF) Current Visit: Yes Status: Acute Assessment and Plan: Acute renal failure on CK D3 Most likely secondary to hypoperfusion from acute postoperative anemia. Continue to monitor intake and output Avoid nephrotoxic medications Frank and Lasix have been held Continue to follow renal functions closely Will order UA (3) Non-STEMI (non-ST elevated myocardial infarction) Current Visit: Yes Status: Resolved Assessment and Plan: s/p LHC on 03/22 PCI with placement of nonoverlapping ORA x2. History of CAD s/p CABG x3 in 2005 and LHC in 2014 with stent placement in proximal SVG to OM graft. continue DAPT, Statin Coronary dose decreased AceI and Lasix on hold cardiology on board (4) HFrEF (heart failure with reduced ejection fraction) Current Visit: Yes Status: Acute Assessment and Plan: TTE on 03/22 with HFREF LVEF 20-25%.- full report below Cardiology on board Coreg resumed at a lower dose FRANK inhibitor held along with Lasix due to hypotension life vest was ordered by cardiology team TTE: 03/22 Impressions: LVEF 20-25%. Normal LV chamber size. Severe segmental left ventricular systolic dysfunction. Mild left ventricular diastolic dysfunction. Atypical septal motion consistent with post-operative status. Normal right ventricular size, mildly reduced function. Moderate-severe tricuspid regurgitation. Severe pulmonary hypertension. Estimated RVSP is 66 mmHg. (5) Cholelithiasis Current Visit: Yes Status: Acute Assessment and Plan: Cholelithiasis incidentally noted- on CT of the chest with a moderately dilated gallbladder. RUQ US on 03/24- Choledocholithiasis without significant biliary dilatation discussed with GI- as she is asymptomatic they recommended to continue to monitor LFTs if she becomes symptomatic or if LFts trend up they recommended to transfer to tertiary center LFTs in AM currently tolerating diet with out nausea, vomiting or abdominal pain has no fever or leukocytosis - will defer starting ABx and further imaging MRCP to GI CTA A/P Cholelithiasis and choledocholithiasis. There are 3 small adjacent calculi in a linear configuration in the distal common bile duct. The gallbladder is moderately dilated. There is minimal bile duct dilatation. Follow-up ERCP would be helpful. RUQ US: IMPRESSION: 1. Choledocholithiasis without significant biliary dilatation. 2. Cholelithiasis with mucosal thickening and pericholecystic fluid. Pattern suspected to represent acute cholecystitis. (6) Hypertension Current Visit: Yes Status: Chronic Assessment and Plan: Frank Lasix on hold she is borderline hypotensive cardiology on board will follow recs (7) Major laceration of femoral artery Current Visit: Yes Status: Acute Assessment and Plan: developed during procedure vascular surgery on board s/p OR and repair on 03/22 continue to monitor site rest of the management as per vascular surgery (8) DVT prophylaxis Current Visit: Yes Status: Acute Assessment and Plan: scds - Time Spent with Patient Total time spent is greater than 50% in coordination of care (as documented) at patient's floor/unit and/or counseling patient: 25 - 35 minutes Plan of Care Discussed with: patient Internal Medicine: Result - Labs CBC & Chem 7: 03/25/19 10:05 03/25/19 01:16 Labs: Short CBC 03/24/19 03/24/19 03/25/19 Range/Units 12:50 19:50 01:16 Hgb 9.2 L 8.8 L 8.2 L (11.5-15.4) g/dL Hct 29.1 L 26.5 L 26.2 L (35.3-44.9) % 03/25/19 Range/Units 10:05 Hgb 9.4 L (11.5-15.4) g/dL Hct 28.5 L (35.3-44.9) % BMP 03/25/19 01:16 Sodium 139 Potassium 3.6 Chloride 109 H Carbon Dioxide 24 BUN 33 H Creatinine 1.48 H Glucose 113 H Calcium 8.7 Liver Function 03/25/19 Range/Units 01:16 Total Bilirubin 0.5 (0.3-1.0) mg/dL AST 43 H (13-39) Units/L ALT 9 (7-52) Units/L Alkaline Phosphatase 37 (34-104) Units/L Albumin 2.9 L (3.5-5.7) g/dL - ABG Interpretation ABG results: PT/INR, D-dimer PT 12.6 Seconds (9.4-12.1) H 03/22/19 07:03 Consult Discharge Plan - Plan Referrals: Charles Staples MD [Partnered Physician] - 04/06/19 2:10 pm Teofilo Alcantara MD [Primary Care Provider] - 04/05/19 9:15 am (1) Post-operative hemorrhage Qualifiers: Surgical complication system/body Area: subcutaneous tissue Procedure type: non-dermatologic Qualified Code(s): L76.22 - Postprocedural hemorrhage of skin and subcutaneous tissue following other procedure (2) Acute renal failure (ARF) Qualifiers: Acute renal failure type: unspecified Qualified Code(s): N17.9 - Acute kidney failure, unspecified (4) HFrEF (heart failure with reduced ejection fraction) Qualifiers: Heart failure chronicity: acute Qualified Code(s): I50.21 - Acute systolic (congestive) heart failure (5) Cholelithiasis Qualifiers: Cholelithiasis location: gallbladder and bile duct Cholecystitis presence: without cholecystitis Biliary obstruction: with biliary obstruction Qualified Code(s): K80.71 - Calculus of gallbladder and bile duct without cholecystitis with obstruction (6) Hypertension Qualifiers: Hypertension type: essential hypertension Qualified Code(s): I10 - Essential (primary) hypertension (7) Major laceration of femoral artery Qualifiers: Encounter type: initial encounter Laterality: right Qualified Code(s): S75.021A - Major laceration of femoral artery, right leg, initial encounter
--- NOTE | 2019-03-25 15:53 | Electrocardiograph Report ---
[address] [address] Test Date: 2019-03-24 Pat Name: Adina Bansal Department: 110 Room: 2N11 Gender: Noc Engineer: : [id number] Requested By: Pasha Galeas Order Number: [id number] Reading MD: Lance Gomez Measurements Intervals [place] Rate: 73 P: 84 MN: 213 QRS: 67 QRSD: 82 T: 184 QT: 474 QTc: 500 Interpretive Statements SINUS RHYTHM WITH FIRST DEGREE AV BLOCK ST DEVIATION AND MODERATE T-WAVE ABNORMALITY, CONSIDER ANTEROLATERAL ISCHEMIA ST DEVIATION AND MODERATE T-WAVE ABNORMALITY, CONSIDER INFERIOR ISCHEMIA Electronically Signed On 03-25-2019 15:52:24 EDT by Lance Gomez
[2019-03-25 17:39] LABS: Bilirubin,Urine Negative (Negative); Blood,Urine Negative (Negative); Clarity,Urine Clear (Clear); Color,Urine Yellow (Yellow); Glucose,Urine (UA) Normal (Normal); Ketones,Urine Negative (Negative); Leukocyte Esterase,Urine Negative (Negative); Nitrite,Urine Negative (Negative); Protein,Urine Negative (Neg-Trace); Specific Gravity,Urine 1.015 (1.010-1.025); Urobilinogen,Urine Normal (Normal)
[2019-03-25] MEDS: 0.9 % Sodium Chloride 500 ML IVC SCH (21:45)
[2019-03-26 06:07] LABS: Hematocrit 26.4 % (35.3-44.9); Hemoglobin 8.4 g/dL (11.5-15.4); Mean Corpuscular HGB Conc 31.8 g/dL (31.6-35.5); Mean Corpuscular Hemoglobin 31.7 pg (28.0-33.3); Mean Corpuscular Volume 99.6 fL (83.0-100.0); Mean Platelet Volume 12.9 fL (9.4-12.4); Platelet Count 152 K/mcL (140-400); Red Blood Count 2.65 M/mcL (3.82-4.97); Red Cell Distribution Width 13.2 % (11.5-14.5); White Blood Count 6.4 K/mcL (4.3-11.1)
[2019-03-26 06:30] LABS: Potassium 3.5 mEq/L (3.5-5.1)
[2019-03-26] MEDS: Aspirin Enteric Coated 81 MG Tablet PO SCH (09:00)
--- NOTE | 2019-03-26 09:57 | Discharge Summary ---
- NOTES TO OUTPATIENT PROVIDER Notes to Outpatient Provider: follow up CBC and CMP on 03/29. if she develops worsening bruisng numbness loss of function of the right lower extremity she is to come to the emergency department as soon as possible. Follow with cardiology. Take blood pressure logs cardiology for further adjustment of her medications. if she develops abdominal pain nausea, fever or chills she is to come back to the ED ERICH. she understands Orders not resulted at time of discharge: Pending orders 03/22/19 14:27 ECG 12 lead ECG [ECG] Stat 03/22/19 14:54 Type and Screen [BBK] Stat 03/23/19 06:00 ECG 12 lead ECG [ECG] AM 0600 03/25/19 07:40 Red Blood Cells [BBK] Stat Date of Encounter: 03/26/19 Time of Encounter: 09:51 - Discharge Diagnosis (1) Non-STEMI (non-ST elevated myocardial infarction) Priority: Primary Status: Resolved (2) Post-operative hemorrhage Priority: Secondary Status: Acute Qualifiers: Surgical complication system/body Area: subcutaneous tissue Procedure type: non-dermatologic Qualified Code(s): L76.22 - Postprocedural hemorrhage of skin and subcutaneous tissue following other procedure (3) Acute renal failure (ARF) Priority: Secondary Status: Acute Qualifiers: Acute renal failure type: unspecified Qualified Code(s): N17.9 - Acute kidney failure, unspecified (4) HFrEF (heart failure with reduced ejection fraction) Priority: Secondary Status: Acute Qualifiers: Heart failure chronicity: acute Qualified Code(s): I50.21 - Acute systolic (congestive) heart failure (5) Cholelithiasis Priority: Secondary Status: Acute Qualifiers: Cholelithiasis location: gallbladder and bile duct Cholecystitis presence: without cholecystitis Biliary obstruction: with biliary obstruction Qualified Code(s): K80.71 - Calculus of gallbladder and bile duct without cholecystitis with obstruction (6) Hypertension Priority: Secondary Status: Chronic Qualifiers: Hypertension type: essential hypertension Qualified Code(s): I10 - Essential (primary) hypertension (7) Major laceration of femoral artery Priority: Secondary Status: Acute Qualifiers: Encounter type: initial encounter Laterality: right Qualified Code(s): S75.021A - Major laceration of femoral artery, right leg, initial encounter (8) DVT prophylaxis Priority: Secondary Status: Acute Hospital course: "Ms. Bansal is a 88 year old female with a past medical history of coronary artery disease status post CABG in 2005 who presented to the ED with complaints of chest pain. Patient reports that chest pain began last night. Pain described as pressure-like radiating across the entire chest from shoulder to shoulder and to her back. Pain was 10 out of 10 in intensity aggravated with deep inspiration. Patient does note some shortness of breath associated with her pain. Arrival patient was mildly hypotensive with initial blood pressure of 188/82. Heart rate in the 60s to 70s. Laboratory workup notable for a elevated troponin of 0.21. EKG showed sinus rhythm the absence of any ST or T- wave changes concerning for ischemia. Given her reports of pain radiating to her back and her hypertension a CT dissection study was performed which was negative for aortic dissection. It did show evidence of cholelithiasis with a moderately dilated gallbladder and choledocholithiasis Patient was given 3 doses of nitroglycerin in the ED which helped somewhat. Loading dose of aspirin was given and patient was started on a heparin drip. Given lack of resolution of her chest pain, patient was started on a nitro drip." Patient presented with above presentation and had above ED course. Cardiology was consulted. Troponin was followed which trended up to 4. [facility] 03/22/19 demonstrated severe 3V CAD. Patient had successful PTCA/ORA placement in the SVG to OM. [place] OM tortuous and could not pass 2.0 compliant balloon. S/P CABG 3 of 3 patent bypass grafts. It was recommended to Continue DAPT (ASA and Plavix) uninterrupted x 1 year, along with statin and beta jeremie. Echocardiogram on 03/22/2019 demonstrated LVEF 20-25%. Severe segmental LV systolic dysfunction. Mild LV diastolic dysfunction. Atypical septal motion consistent with post-operative status. Normal RV size, mildly reduced function. Moderate-severe tricuspid regurgitation. Severe pulmonary hypertension. Estimated RVSP is 66 mmHg. was recommended for her to restart her Lasix at home. LifeVest was provided she is to follow-up with cardiology closely to monitor ejection fraction and for possible device placement. While having cardiac catheterization performed she had bleeding from superficial femoral artery, vascular surgery was consulted and she underwent operative repair. Postop she developed postoperative anemia her hemoglobin trended down from 12.4-8.4, she was hypotensive on 625 which resolved on discharge. H emoglobin was stable. Vascular surgery cleared her for discharge. Her lisinopril was discontinued by cardiology team. She is to have close follow-up with cardiology team in order to have her medications reconciled. She was cleared for discharge by the cardiology team. In addition to above her creatinine also trended up was likely secondary to hypotension which improved as hypotension resolved. GI was consulted as CT abdomen also shows cholelithiasis and choledocholithiasis. US abdomen was repeated and showed 2 small stones in the CBD without obstruction or dilation. she remained assymptomatic with out transaminitis or elevated bilirubin. she was given follow up appointment with GI as OP for possible ERCP. if she develops abdominal pain nausea, fever or chills she is to come back to the ED ERICH. she understands follow up CBC on along with CMP for renal functions if she develops worsening bruising numbness loss of function of the right lower extremity she is to come to the emergency department as soon as possible Follow with cardiology for further adjustment of medications, to wear life vest as directed Take blood pressure logs cardiology for further adjustment of her medications Above was discussed with daughter at bedside along with patient. They understand. she is to weight herself daily adn if she gains more than 2 pound to call PCP or cardiology. Nursing staff aware to provide follow-up appointments with vascular, cardiology, PCP and GI for the patient. information above was discussed with daughter CT A/P IMPRESSION: No evidence of aortic dissection or aneurysm. There is mild atherosclerotic plaque in the thoracic aorta and abdominal aorta not unusual for a patient of this age. Cholelithiasis and choledocholithiasis. There are 3 small adjacent calculi in a linear configuration in the distal common bile duct. The gallbladder is moderately dilated. There is minimal bile duct dilatation. Follow-up ERCP would be helpful. Large hiatal hernia. Status post CABG. TTE: Impressions: LVEF 20-25%. Normal LV chamber size. Severe segmental left ventricular systolic dysfunction. Mild left ventricular diastolic dysfunction. Atypical septal motion consistent with post-operative status. Normal right ventricular size, mildly reduced function. Moderate-severe tricuspid regurgitation. Severe pulmonary hypertension. Estimated RVSP is 66 mmHg. RUQ US: IMPRESSION: 1. Choledocholithiasis without significant biliary dilatation. 2. Cholelithiasis with mucosal thickening and pericholecystic fluid. Pattern suspected to represent acute cholecystitis. Discharge discussed with: patient, family, nurse, social work, case management, pre owned sales consultant - Time Spent with Patient Total time spent providing and/or coordinating discharge services: Time spent: Greater than 30 minutes (40) - Discharge Medications Prescriptions: New Rosuvastatin [Crestor] 10 mg PO HS #30 tablet Ferrous Sulfate 325 mg PO BIDWM 14 Days #28 tablet Continued ALPRAZolam [Xanax 0.5 MG Tablet] 0.5 mg PO DAILY PRN PRN Reason: Anxiety Esomeprazole Magnesium [Nexium] 40 mg PO DAILY Levothyroxine [Synthroid] 50 mcg PO QAM Potassium Chloride [K-Tab ER] 10 meq PO BID Aspirin [Adult Aspirin Regimen] 81 mg PO DAILY #30 tablet. Furosemide [Lasix] 20 mg PO MOTUWETHFRSA #30 tablet Clopidogrel [Plavix] 75 mg PO DAILY #30 tablet Changed Carvedilol [Coreg] 3.125 mg PO BID 30 Days #30 tablet Discontinued Isosorbide MONOnitrate (24 HR) [Imdur] 15 mg PO DAILY Lisinopril [Zestril] 40 mg PO DAILY Home Medications: ALPRAZolam [Xanax 0.5 MG Tablet] 0.5 mg PO DAILY PRN 03/22/19 [History] Esomeprazole Magnesium [Nexium] 40 mg PO DAILY 03/22/19 [History] Levothyroxine [Synthroid] 50 mcg PO QAM 03/22/19 [History] Potassium Chloride [K-Tab ER] 10 meq PO BID 03/22/19 [History] Aspirin [Adult Aspirin Regimen] 81 mg PO DAILY #30 tablet. 03/26/19 [Rx] Carvedilol [Coreg] 3.125 mg PO BID 30 Days #30 tablet 03/26/19 [Rx] Clopidogrel [Plavix] 75 mg PO DAILY #30 tablet 03/26/19 [Rx] Ferrous Sulfate 325 mg PO BIDWM 14 Days #28 tablet 03/26/19 [Rx] Furosemide [Lasix] 20 mg PO MOTUWETHFRSA #30 tablet 03/26/19 [Rx] Rosuvastatin [Crestor] 10 mg PO HS #30 tablet 03/26/19 [Rx] Allergies/Adverse Reactions: Allergy/AdvReac Type Severity Reaction Status Date / Time Tetanus Vaccines and Toxoid Allergy Anaphylaxis Verified 03/22/19 10:27 [Tetanus Vaccines & Toxoid] venom-honey bee Allergy Anaphylaxis Verified 03/22/19 10:27 [bee venom (honey bee)] atorvastatin [From Lipitor] AdvReac MUSCLE Verified 03/22/19 10:27 WEAKNESS Date of admission: 03/22/19 03:12 Primary care physician: Teofilo Alcantara MD Consults: 03/22/19 02:08 Consult to Cardiac Rehabilitation-Phase1 [CONS] Routine Comment: Reason for Consult: AMI Call Completed: Yes Consult to Cardiology [CONS] Routine Comment: Consulting Provider: Cardiology [place] Reason for Consult: NSTEMI Call Completed: No Consult to Nurse Navigator [CONS] Routine Comment: 03/22/19 14:27 Consult to Cardiac Rehabilitation-Phase1 [CONS] Routine Comment: Reason for Consult: post op PCI Call Completed: Yes 03/23/19 13:50 Consult to Gastroenterology [CONS] Routine Consulting Provider: Gastroenterology [place] Reason for Consult: dilated bile duct with stones, nicholas sign negative, RUQ US pending Call Completed: No - Constitutional Vitals: Temp Pulse Resp BP Pulse Ox 98.5 F 69 17 137/66 97 03/26/19 07:32 03/26/19 07:32 03/26/19 07:32 03/26/19 07:32 03/26/19 07:32 Exam: General: Patient is alert, oriented, no acute distress, speaks in full sentences Head: atraumatic, normocephalic, Eye: normal appearance, PERRL, no scleral icterus, no conjunctival injection ENT: mucous membranes moist, normal external ear exam Neck: normal inspection, trachea midline, full ROM, Chest: normal inspection, symmetric chest rise, CABG scar is well-healed Respiratory: Good respiratory effort. Bilateral breath sounds are clear without wheezing, crackles, or rhonchi. Cardiovascular: Regular rate and rhythm. s1 and s2 Abdomen: Bowel sounds present normoactive x-4 quadrants. Abdomen is soft, nondistended. no Epigastric tenderness. No guarding or rebound. No organomegaly noted musculoskeletal: Spontaneously moving all extremities. no edema, no calf tenderness, right lower extremity is warm Skin: warm, dry, intact. has large ecchymosis of the right groin extends to the suprapubic area and also to the right lateral leg . no hematoma was palpated, Neuro: Alert and oriented x3 , no focal deficit Psych: Patient's affect is normal - Patient Status Disposition: Home, Self-Care Condition: Fair Functional capacity at discharge: independent ambulation Overall status at discharge: patient is progressing back to baseline - Discharge Instructions Instructions: Iron Supplements (By mouth), Furosemide (By mouth), Aspirin (By mouth), Carvedilol (By mouth), Clopidogrel (By mouth), Rosuvastatin (By mouth), Coronary Intravascular Stent Placement (DC), Anemia (GEN), Coronary Intravascular Stent Placement, Overlock Collar Setter (GEN) Follow Up With: Charles Staples MD [Partnered Physician] - 03/30/19 1:40 pm Teofilo Alcantara MD [Primary Care Provider] - 03/30/19 8:30 am Sonia Salinas MD [Partnered Physician] - 04/14/19 12:50 pm Wisam Gilbert MD [Partnered Physician] - (Sent web request on 03-26-19 @ 1004) - Diet and Activity Activity: increase activity as tolerated Diet: low salt diet
--- NOTE | 2019-03-26 10:02 | Cardiology Progress Note ---
<Ramya Albrecht N - Last Filed: 03/26/19 09:59> Date of Encounter: 03/26/19 Time of Encounter: 09:59 Assessment and Plan (1) Non-STEMI (non-ST elevated myocardial infarction) Status: Resolved Peak troponin 4.24. [facility] 03/22/19 demonstrated severe 3V CAD. Patient had [place] ccessful PTCA/ORA placement in the SVG to OM. [place] OM tortuous and could not pass 2.0 compliant balloon. S/P CABG 3 of 3 patent bypass grafts. Continue DAPT (ASA and Plavix) uninterrupted x 1 year, along with statin and beta jeremie. (2) Ischemic cardiomyopathy Status: Acute Echocardiogram on 03/22/2019 demonstrated LVEF 20-25%. Severe segmental LV s ystolic dysfunction. Mild LV diastolic dysfunction. Atypical septal motion consistent with post-operative status. Normal RV size, mildly reduced function. Moderate-severe tricuspid regurgitation. Severe pulmonary hypertension. Estimated RVSP is 66 mmHg. Continue reduced dose of coreg 3.125mg BID, with plan to uptitrate as needed in the outpatient clinic. Restart lasix 20mg daily dose at time of hospital discharge. Continue to hold lisinopril due to recent hypotension, which likely contribted to EDIS. Will consider restarting therapy in outpatient setting. Followup in outpatient cardiology clinic. Plan for repeat echocardiogram in ~3 months to reevaluate cardiac function. (3) Post-operative hemorrhage Status: Acute Likely secondary to blood loss from laceration of superficial femoral artery during LHC. Hemoglobin appears to be stable between 8.0-9.5. Continue iron supplementation per primary team. (4) CAD (coronary artery disease) Status: Acute Hx CAD s/p CABG and PCI as above. Continue aspirin, plavix, and coreg 3.125mg BID. Continue crestor 10mg daily. (5) EDIS (acute kidney injury) Status: Acute Improving. Creatinine this morning noted to be 1.34, which is improved from 1.48 yesterday. Continue to encourage good PO fluid intake. Discussion w patient/family: The assessment and plan as outlined above was discussed with the patient and/or family members who expressed understanding and agreement. All questions were answered. Thank you for involving us in the care of your patient. Please call with any questions. Subjective Principal diagnosis: NSTEMI Interval history: Ms. Bansal was seen and evaluated at the bedside. She states that she is feeling well today, and is eager to return home. She denies any chest pain, palpitations, orthopnea, shortness of breath, dizziness, or lightheadedness. She denies any concerns at this time. Nursing staff reports no significant overnight events. Objective Vital Signs, Last 4 Hours Temp Pulse Resp BP Pulse Ox 03/26/19 07:32 98.5 F 69 17 137/66 97 General: Conversant, No Apparent Distress HEENT: Atraumatic, Normocephaly, Mucus Membranes Moist Neck: No JVD, Normal carotid pulses Cardiac: Reg Rate and Rhythm, Normal S1 and S2, No Murmur Lungs: Normal Breath Sounds, No Wheeze, Rales, Rhonchi Neuro: Alert and responsive, No focal deficits noted Abdomen: Soft, Non-Tender Skin: No rashes noted on visualized skin Musculoskeletal: No Chest Wall Tenderness Extremities: No Clubbing, No Cyanosis, No Edema, Normal Pulses Results 03/26/19 05:38 03/26/19 05:38 Lab Results 03/25/19 03/26/19 03/26/19 10:05 05:38 05:38 WBC 6.4 Hgb 9.4 L 8.4 L Hct 28.5 L 26.4 L Plt Count 152 Sodium 142 Potassium 3.5 Chloride 109 H Carbon Dioxide 23 BUN 31 H Creatinine 1.34 H Glucose 104 Calcium 9.0 Consult Discharge Plan - Plan Instructions: Iron Supplements (By mouth), Furosemide (By mouth), Aspirin (By mouth), Carvedilol (By mouth), Clopidogrel (By mouth), Rosuvastatin (By mouth), Coronary Intravascular Stent Placement (DC), Anemia (GEN), Coronary Intravascular Stent Placement, Dipper Clock And Watch Hands (GEN) Referrals: Charles Staples MD [Partnered Physician] - 03/30/19 1:40 pm Teofilo Alcantara MD [Primary Care Provider] - 03/30/19 8:30 am Sonia Salinas MD [Partnered Physician] - 04/14/19 12:50 pm Wisam Gilbert MD [Partnered Physician] - (Sent web request on 03-26-19 @ [id number]) Prescriptions: Aspirin [Adult Aspirin Regimen] 81 mg PO DAILY #30 tablet.dr Carvedilol [Coreg] 3.125 mg PO BID 30 Days #30 tablet Rosuvastatin [Crestor] 10 mg PO HS #30 tablet Ferrous Sulfate 325 mg PO BIDWM 14 Days #28 tablet Furosemide [Lasix] 20 mg PO MOTUWETHFRSA #30 tablet Clopidogrel [Plavix] 75 mg PO DAILY #30 tablet <Yunior Kearney A - Last Filed: 03/27/19 22:26> Date of Encounter: 03/27/19 Assessment and Plan Discussion w patient/family: The assessment and plan as outlined above was discussed with the patient and/or family members who expressed understanding and agreement. All questions were answered. Thank you for involving us in the care of your patient. Please call with any questions. Results 03/26/19 05:38 03/26/19 05:38 - Attending Attestation I have personally performed a face to face evaluation on this patient. I have reviewed and agree with the documented findings and care plan as documented by the resident. History and Exam by me shows: Patient with ischemic cardiomyopathy admitted for NSTEMI status post ORA to [facility]. She was hypotensive with worsening renal function. These are improving. I agree with restarting Coreg 3.125 mg twice a day. We will add other GDMT such as ACEI as outpatient Thanks, Yunior Kearney MD [facility]
[2019-03-26 11:25] VITALS: BP 137/66
== END 2019-03-26 12:20 | disposition home or self-care (01) | DRG 246 ==
LOC: 2NENU 21:18 → EMEROOARM 21:18 → 2NENU 03-22 01:24 → SUATTDRO 03-22 03:12 → 2NNU 03-22 15:31
PROVIDERS: ADMIT Internal Medicine; ATTEND Internal Medicine

== ENCOUNTER 2021-03-19 20:08 | Inpatient (IN) ==
[2021-03-19] MEDS ORDERED: Tdap (Boostrix) Vaccine 0.5 ML SYRINGE IM ONE (20:17)
[2021-03-19 23:41] LABS: Basophils # 0.1 K/mcL (0.0-0.2); Basophils % 0.7 %; Eosinophils # 0.3 K/mcL (0.0-0.6); Eosinophils % 2.8 %; Immature Granulocytes % 0.6 % (0-4); Lymphocytes # 1.4 K/mcL (0.6-4.6); Lymphocytes % 12.8 %; Mean Corpuscular HGB Conc 30.8 g/dL (31.6-35.5); Mean Corpuscular Hemoglobin 30.5 pg (28.0-33.3); Mean Corpuscular Volume 99.2 fL (83.0-100.0); Mean Platelet Volume 12.2 fL (9.4-12.4); Monocytes # 0.8 K/mcL (0.0-1.3); Monocytes % 7.6 %; Platelet Count 203 K/mcL (140-400); Red Blood Count 3.93 M/mcL (3.82-4.97); Red Cell Distribution Width 12.1 % (11.5-14.5); Segmented Neutrophils % 75.5 %; White Blood Count 10.6 K/mcL (4.3-11.1)
[2021-03-19] MEDS ORDERED: *HR* OxyCODONE Immed Rel 5 MG TABLET PO ONE (23:41)
[2021-03-20] LABS: Calcium 9.5 mg/dL (8.6-10.3); Potassium 4.2 mEq/L (3.5-5.1)
[2021-03-20 00:12] LABS: INR 1.1; Prothrombin Time 12.2 Seconds (9.4-12.1)
[2021-03-20] MEDS ORDERED: *HR* OxyCODONE/APAP 7.5/325 TABLET PO ONE (03:32)
[2021-03-20] MEDS ORDERED: Ondansetron 4 MG/2 ML VIAL IVP PRN ×2 (03:49→19:27)
[2021-03-20] MEDS ORDERED: *HR* HYDROcodone/Acet 5/325 mg TABLET PO PRN (03:49)
[2021-03-20] MEDS ORDERED: Naloxone 0.4 MG/ML INJ IVP PRN (03:49)
[2021-03-20] MEDS ORDERED: Acetaminophen 325 MG TABLET PO PRN (03:49)
[2021-03-20] MEDS ORDERED: 0.9 % Sodium Chloride 1,000 ML IVC SCH (04:00)
[2021-03-20] MEDS ORDERED: Perflutren Lipid Microsphere 1.3 ML in 0.9 % Sodium Chloride 8.7 ML IVP PRN (04:02)
[2021-03-20] MEDS ORDERED: Furosemide 20 MG TABLET PO PRN (04:44)
[2021-03-20 06:14] LABS: Hematocrit 35.1 % (35.3-44.9); Hemoglobin 11.3 g/dL (11.5-15.4); Mean Corpuscular HGB Conc 32.2 g/dL (31.6-35.5); Mean Corpuscular Hemoglobin 30.9 pg (28.0-33.3); Mean Corpuscular Volume 95.9 fL (83.0-100.0); Mean Platelet Volume 12.3 fL (9.4-12.4); Platelet Count 172 K/mcL (140-400); Red Blood Count 3.66 M/mcL (3.82-4.97); White Blood Count 9.5 K/mcL (4.3-11.1)
[2021-03-20 06:17] LABS: Estimated Average Glucose 128 mg/dl; Hemoglobin A1C 6.1 %
[2021-03-20 06:33] LABS: BUN/Creatinine Ratio 16 (6-26); Blood Urea Nitrogen 17 mg/dL (8-23); Calcium 9.5 mg/dL (8.6-10.3); Carbon Dioxide 24 mEq/L (23-29); Chloride 110 mEq/L (98-107); Chol/HDL Ratio 3.1 (0-4.9); Cholesterol 108 mg/dL (< 200); Glucose 122 mg/dL (70-105); HDL Cholesterol 35 mg/dL (40-59); LDL Cholesterol,Calculated 51 mg/dL (< 100); Magnesium 1.7 mg/dL (1.6-2.6); Osmolality,Calculated 297 (280-300); Sodium 142 mEq/L (136-145); Triglycerides 112 mg/dL (< 150); Troponin I < 0.03 ng/mL (< 0.04); eGFR For African Americans 60 (> 60); eGFR For Non-African Americans 49 (> 60)
[2021-03-20 06:45] LABS: Thyroid Stimulating Hormone 0.701 mcIU/mL (0.340-5.600)
[2021-03-20 09:17] LABS: Folate 9.3 ng/mL (3.0-16.0)
[2021-03-20] MEDS: Aspirin Enteric Coated 81 MG Tablet PO SCH (09:43)
[2021-03-20] MEDS: carvediloL 6.25 MG TABLET PO SCH ×2 (09:43→15:34)
[2021-03-20] MEDS: *HR* OxyCODONE Immed Rel 5 MG TABLET PO PRN ×2 (15:32→21:40)
[2021-03-20] MEDS ORDERED: Melatonin 3 MG TABLET PO PRN (17:19)
[2021-03-20] MEDS ORDERED: Iron Sucrose Complex 400 MG in 0.9 % Sodium Chloride 250 ML IVPB ONE (17:19)
[2021-03-20] MEDS ORDERED: *HR* OxyCODONE Immed Rel 5 MG TABLET PO PRN (19:27)
[2021-03-20] MEDS ORDERED: Promethazine 6.25 MG in Water for inj. (sterile) 20 ML IVPB PRN (19:27)
[2021-03-20] MEDS ORDERED: Morphine Sulfate 2 MG/ML SYRINGE IVP PRN (19:27)
[2021-03-20] MEDS ORDERED: *HR* FentaNYL (PF) 100 MCG/2 ML VIAL ONE ×2 (22:26→23:07)
[2021-03-20] MEDS ORDERED: *HR* Propofol 200 MG/20 ML VIAL IVP ONE (22:26)
[2021-03-20] MEDS ORDERED: Ondansetron 4 MG/2 ML VIAL ONE (22:27)
[2021-03-20] MEDS ORDERED: *HR* Etomidate 40 MG/20 ML VIAL IVP ONE (22:27)
[2021-03-20] MEDS ORDERED: Lidocaine -MPF 2% 2 ML VIAL ONE (22:27)
[2021-03-20] MEDS ORDERED: *HR* Succinylcholine 200 MG/10 ML VIAL IVP ONE (22:27)
[2021-03-20] MEDS ORDERED: EPHEDrine 50 MG/ML VIAL ONE (23:26)
[2021-03-21 05:39] LABS: Hematocrit 30.2 % (35.3-44.9); Mean Corpuscular HGB Conc 32.1 g/dL (31.6-35.5); Mean Corpuscular Hemoglobin 31.3 pg (28.0-33.3); Mean Corpuscular Volume 97.4 fL (83.0-100.0); Mean Platelet Volume 12.2 fL (9.4-12.4); Platelet Count 158 K/mcL (140-400); Red Cell Distribution Width 12.3 % (11.5-14.5)
[2021-03-21 05:42] LABS: Hemoglobin 9.7 g/dL (11.5-15.4)
[2021-03-21] MEDS: *HR* OxyCODONE Immed Rel 5 MG TABLET PO PRN ×3 (05:43→23:14)
[2021-03-21 06:05] LABS: BUN/Creatinine Ratio 14 (6-26); Blood Urea Nitrogen 13 mg/dL (8-23); Calcium 9.2 mg/dL (8.6-10.3); Carbon Dioxide 24 mEq/L (23-29); Chloride 109 mEq/L (98-107); Glucose 160 mg/dL (70-105); Magnesium 1.6 mg/dL (1.6-2.6); Osmolality,Calculated 294 (280-300); Phosphorous 3.3 mg/dL (2.7-4.5); Potassium 4.1 mEq/L (3.5-5.1); Sodium 140 mEq/L (136-145); eGFR For African Americans > 60 (> 60); eGFR For Non-African Americans 55 (> 60)
[2021-03-21] MEDS: Multivit/Ca/Min/Fe/FA 1 TAB TABLET PO SCH (08:58)
[2021-03-21] MEDS: carvediloL 6.25 MG TABLET PO SCH ×2 (08:58→16:32)
[2021-03-21] MEDS: lisinopriL 5 MG TABLET PO SCH (08:59)
[2021-03-21] MEDS: Cyanocobalamin (B-12) 1,000 MCG TABLET PO SCH (08:59)
[2021-03-21] MEDS: Aspirin Enteric Coated 81 MG Tablet PO SCH (08:59)
[2021-03-21] MEDS: CeFAZolin 2 GM/120 ML BAG IVPB SCH ×2 (09:33→16:32)
[2021-03-21 12:17] LABS: Hematocrit 30.1 % (35.3-44.9); Hemoglobin 9.3 g/dL (11.5-15.4)
[2021-03-21] MEDS ORDERED: MOM Conc 10 ML UD.LIQ PO ONE (13:27)
[2021-03-21] MEDS: polyethylene glycoL 3350 17 GM POWD.PACK PO SCH (14:25)
[2021-03-21] MEDS: Sennosides/Docusate Sodium TABLET PO SCH (20:34)
[2021-03-22 04:42] LABS: Hematocrit 24.3 % (35.3-44.9); Hemoglobin 7.6 g/dL (11.5-15.4); Mean Corpuscular HGB Conc 31.3 g/dL (31.6-35.5); Mean Corpuscular Hemoglobin 30.3 pg (28.0-33.3); Mean Corpuscular Volume 96.8 fL (83.0-100.0); Mean Platelet Volume 12.7 fL (9.4-12.4); Platelet Count 156 K/mcL (140-400); Red Blood Count 2.51 M/mcL (3.82-4.97); Red Cell Distribution Width 12.4 % (11.5-14.5); White Blood Count 8.7 K/mcL (4.3-11.1)
[2021-03-22 04:59] LABS: Magnesium 2.4 mg/dL (1.6-2.6); Phosphorous 2.3 mg/dL (2.7-4.5); Potassium 4.6 mEq/L (3.5-5.1)
[2021-03-22] MEDS: *HR* OxyCODONE Immed Rel 5 MG TABLET PO PRN ×3 (05:17→22:26)
[2021-03-22] MEDS ORDERED: polyethylene glycoL 3350 17 GM POWD.PACK PO SCH (09:00)
[2021-03-22] MEDS: Aspirin Enteric Coated 81 MG Tablet PO SCH ×2 (09:32→19:44)
[2021-03-22] MEDS: Multivit/Ca/Min/Fe/FA 1 TAB TABLET PO SCH (09:32)
[2021-03-22] MEDS: Sennosides/Docusate Sodium TABLET PO SCH ×2 (09:32→19:44)
[2021-03-22] MEDS: Cyanocobalamin (B-12) 1,000 MCG TABLET PO SCH (09:32)
[2021-03-22] MEDS: lisinopriL 5 MG TABLET PO SCH (09:32)
[2021-03-22] MEDS: carvediloL 6.25 MG TABLET PO SCH ×2 (09:33→17:01)
[2021-03-22] MEDS: polyethylene glycoL 3350 17 GM POWD.PACK PO SCH (09:33)
[2021-03-22 10:00] LABS: Hematocrit 27.2 % (35.3-44.9); Hemoglobin 8.5 g/dL (11.5-15.4)
[2021-03-22] MEDS ORDERED: MOM Conc 10 ML UD.LIQ PO ONE (12:40)
[2021-03-22 19:31] LABS: Basophils # 0.1 K/mcL (0.0-0.2); Basophils % 0.6 %; Eosinophils # 0.2 K/mcL (0.0-0.6); Eosinophils % 2.4 %; Hematocrit 23.9 % (35.3-44.9); Hemoglobin 7.4 g/dL (11.5-15.4); Immature Granulocytes % 1.3 % (0-4); Lymphocytes # 1.3 K/mcL (0.6-4.6); Lymphocytes % 15.3 %; Mean Corpuscular Hemoglobin 30.5 pg (28.0-33.3); Mean Corpuscular Volume 98.4 fL (83.0-100.0); Monocytes # 1.3 K/mcL (0.0-1.3); Monocytes % 14.5 %; Neutrophils # 5.8 K/mcL (1.6-8.9); Nucleated Red Blood Cells 0.3 /100 WBC (0); Platelet Count 160 K/mcL (140-400); Red Blood Count 2.43 M/mcL (3.82-4.97); Red Cell Distribution Width 12.4 % (11.5-14.5); Segmented Neutrophils % 65.9 %; White Blood Count 8.8 K/mcL (4.3-11.1)
[2021-03-23 04:46] LABS: Hemoglobin 7.6 g/dL (11.5-15.4); Mean Corpuscular HGB Conc 31.7 g/dL (31.6-35.5); Mean Corpuscular Hemoglobin 31.1 pg (28.0-33.3); Mean Corpuscular Volume 98.4 fL (83.0-100.0); Mean Platelet Volume 12.3 fL (9.4-12.4); Platelet Count 167 K/mcL (140-400); Red Blood Count 2.44 M/mcL (3.82-4.97); Red Cell Distribution Width 12.5 % (11.5-14.5); White Blood Count 8.3 K/mcL (4.3-11.1)
[2021-03-23 05:08] LABS: Calcium 8.9 mg/dL (8.6-10.3); Magnesium 2.2 mg/dL (1.6-2.6); Phosphorous 2.4 mg/dL (2.7-4.5); Potassium 4.4 mEq/L (3.5-5.1)
[2021-03-23] MEDS: Aspirin Enteric Coated 81 MG Tablet PO SCH (08:55)
[2021-03-23] MEDS: Sennosides/Docusate Sodium TABLET PO SCH (08:55)
[2021-03-23] MEDS: polyethylene glycoL 3350 17 GM POWD.PACK PO SCH (08:55)
[2021-03-23] MEDS: Multivit/Ca/Min/Fe/FA 1 TAB TABLET PO SCH (08:55)
[2021-03-23] MEDS: Cyanocobalamin (B-12) 1,000 MCG TABLET PO SCH (08:56)
[2021-03-23] MEDS: lisinopriL 5 MG TABLET PO SCH (08:56)
[2021-03-23] MEDS: carvediloL 6.25 MG TABLET PO SCH ×2 (08:56→18:04)
[2021-03-23 10:33] LABS: Hemoglobin 7.6 g/dL (11.5-15.4)
[2021-03-23] MEDS: *HR* OxyCODONE Immed Rel 5 MG TABLET PO PRN (10:47)
[2021-03-23] MEDS ORDERED: MOM Conc 10 ML UD.LIQ PO SCH (13:30)
[2021-03-23] MEDS ORDERED: Lactulose Oral Soln 20 GM/30 ML UDC PO ONE (13:40)
[2021-03-23 16:32] LABS: Influenza A PCR Negative (Negative); Influenza B PCR Negative (Negative); Resp. Syncytial Virus PCR Negative (Negative)
[2021-03-23 16:49] LABS: SARS-CoV-2 by PCR (In House) Negative (Negative)
[2021-03-23 16:57] VITALS: BP 118/70
== END 2021-03-23 20:00 | disposition other institution (70) | DRG 481 ==
LOC: 3ANU 20:08 → EMEROOARM 20:08 → SUATTDRO 03-20 00:49 → 3NENU 03-20 01:07
PROVIDERS: ADMIT Student in an Organized Health Care Education/Training Program; ATTEND Internal Medicine

== ENCOUNTER 2021-06-06 13:21 | Inpatient (IN) ==
[2021-06-06] MEDS ORDERED: 0.9 % Sodium Chloride 500 ML IVC ONE (17:26)
[2021-06-06] MEDS ORDERED: *HR* HYDROmorphone (PF) 1 MG/ML SYRINGE IVP ONE ×2 (17:30→19:43)
[2021-06-06 18:47] LABS: Basophils # 0.1 K/mcL (0.0-0.2); Eosinophils # 0.2 K/mcL (0.0-0.6); Eosinophils % 2.9 %; Hematocrit 41.2 % (35.3-44.9); Hemoglobin 13.2 g/dL (11.5-15.4); Immature Granulocytes % 0.1 % (0-4); Lymphocytes # 1.5 K/mcL (0.6-4.6); Lymphocytes % 17.8 %; Mean Corpuscular Hemoglobin 31.1 pg (28.0-33.3); Mean Corpuscular Volume 97.2 fL (83.0-100.0); Mean Platelet Volume 12.7 fL (9.4-12.4); Monocytes # 0.7 K/mcL (0.0-1.3); Monocytes % 8.3 %; Neutrophils # 5.8 K/mcL (1.6-8.9); Platelet Count 223 K/mcL (140-400); Red Blood Count 4.24 M/mcL (3.82-4.97); Segmented Neutrophils % 69.9 %; White Blood Count 8.3 K/mcL (4.3-11.1)
[2021-06-06 19:08] LABS: Bilirubin,Urine Negative (Negative); Blood,Urine Small (Negative); Clarity,Urine Clear (Clear); Color,Urine Light-Yellow (Yellow); Glucose,Urine (UA) Normal (Normal); Hyaline Casts,Urine Few per lpf (None Seen); Ketones,Urine 10 mg/dL (Negative); Leukocyte Esterase,Urine Negative (Negative); Mucus,Urine Few per lpf (None-Few); Nitrite,Urine Negative (Negative); PH,Urine 5.5 pH Units (5.0-8.0); Protein,Urine 70 mg/dL (Neg-Trace); Squamous Epithelial Cell,Urine Few per hpf (None-Few); Urobilinogen,Urine Normal (Normal); WBC,Urine 0-3 per hpf (0-3)
[2021-06-06 19:16] LABS: Troponin I 0.03 ng/mL (< 0.04)
[2021-06-06 20:49] LABS: Alanine Aminotransferase 10 Units/L (7-52); Albumin 4.2 g/dL (3.5-5.7); Albumin/Globulin Ratio 1.4 (1.1-2.2); Alkaline Phosphatase 57 Units/L (34-104); Aspartate Amino Transferase 23 Units/L (13-39); BUN/Creatinine Ratio 20 (6-26); Bilirubin,Total 0.5 mg/dL (0.3-1.0); Blood Urea Nitrogen 21 mg/dL (8-23); Calcium 10.6 mg/dL (8.6-10.3); Carbon Dioxide 23 mEq/L (23-29); Chloride 108 mEq/L (98-107); Globulin 2.9 g/dL (2.4-3.5); Glucose 107 mg/dL (70-105); Osmolality,Calculated 295 (280-300); Potassium 4.1 mEq/L (3.5-5.1); Sodium 141 mEq/L (136-145); Total Protein 7.1 g/dL (6.4-8.9); eGFR For African Americans > 60 (> 60); eGFR For Non-African Americans 50 (> 60)
[2021-06-06] MEDS ORDERED: tiZANidine 4 MG TABLET PO PRN (22:40)
[2021-06-06] MEDS ORDERED: 0.9 % Sodium Chloride 1,000 ML IVC SCH (22:45)
[2021-06-06] MEDS ORDERED: Acetaminophen 325 MG TABLET PO PRN (22:55)
[2021-06-06] MEDS ORDERED: Ondansetron 4 MG/2 ML VIAL IVP PRN (22:55)
[2021-06-06] MEDS ORDERED: Naloxone 0.4 MG/ML INJ IVP PRN (22:55)
[2021-06-07] MEDS: *HR* HYDROmorphone (PF) 1 MG/ML SYRINGE IVP PRN ×5 (00:04→20:30)
[2021-06-07 01:26] LABS: Hematocrit 37.8 % (35.3-44.9); Hemoglobin 12.1 g/dL (11.5-15.4); Mean Corpuscular Hemoglobin 31.1 pg (28.0-33.3); Mean Corpuscular Volume 97.2 fL (83.0-100.0); Mean Platelet Volume 12.7 fL (9.4-12.4); Platelet Count 187 K/mcL (140-400); Red Blood Count 3.89 M/mcL (3.82-4.97); White Blood Count 6.9 K/mcL (4.3-11.1)
[2021-06-07 01:34] LABS: INR 1.6; Prothrombin Time 18.3 Seconds (9.4-12.1)
[2021-06-07 01:36] LABS: Activated Partial Thrombo Time 33.9 Seconds (26.0-36.0)
[2021-06-07 01:46] LABS: BUN/Creatinine Ratio 20 (6-26); Blood Urea Nitrogen 17 mg/dL (8-23); Calcium 9.7 mg/dL (8.6-10.3); Carbon Dioxide 24 mEq/L (23-29); Chloride 110 mEq/L (98-107); Chol/HDL Ratio 3.4 (0-4.9); Cholesterol 89 mg/dL (< 200); Glucose 117 mg/dL (70-105); HDL Cholesterol 26 mg/dL (40-59); LDL Cholesterol,Calculated 32 mg/dL (< 100); Magnesium 1.4 mg/dL (1.6-2.6); Osmolality,Calculated 295 (280-300); Potassium 3.3 mEq/L (3.5-5.1); Sodium 141 mEq/L (136-145); Triglycerides 155 mg/dL (< 150); eGFR For African Americans > 60 (> 60); eGFR For Non-African Americans > 60 (> 60)
[2021-06-07] MEDS ORDERED: Perflutren Lipid Microsphere 1.3 ML in 0.9 % Sodium Chloride 8.7 ML IVP PRN (02:22)
[2021-06-07] MEDS ORDERED: Potassium Chloride 20 MEQ, Lidocaine 1% 2 ML in 0.9 % Sodium Chloride 250 ML IVPB ONE (03:10)
[2021-06-07 04:54] LABS: % Iron Saturation 11 % (15-50); Iron 37 mcg/dL (50-170); Transferrin 234 mg/dL (203-362)
[2021-06-07 05:13] LABS: Ferritin 52 ng/mL (10-120)
[2021-06-07 05:22] LABS: Folate > 22.3 ng/mL (3.0-16.0); Vitamin B12 323 pg/mL (250-1100)
[2021-06-07] MEDS: Aspirin Enteric Coated 81 MG Tablet PO SCH (09:16)
[2021-06-07] MEDS: Magnesium Oxide 400 MG TABLET PO SCH (09:16)
[2021-06-07] MEDS ORDERED: Acetaminophen IV 500 MG/50 ML BAG IVPB ONE (10:44)
[2021-06-07] MEDS ORDERED: Bisacodyl 10 MG RECTAL SUPPOSITORY RC ONE (10:46)
[2021-06-07] MEDS ORDERED: *HR* Heparin 5,000 UNIT/ML VIAL IVP PRN ×2 (13:36)
[2021-06-07] MEDS ORDERED: Heparin 25,000UNIT/250ML 1/2NS 25,000 UNIT/250 ML IV.SOLN IVC SCH (13:45)
[2021-06-07 14:01] LABS: Magnesium 1.6 mg/dL (1.6-2.6); Potassium 3.9 mEq/L (3.5-5.1)
[2021-06-07 14:27] LABS: Hematocrit 36.5 % (35.3-44.9); Hemoglobin 11.6 g/dL (11.5-15.4); Mean Corpuscular HGB Conc 31.8 g/dL (31.6-35.5); Mean Corpuscular Hemoglobin 31.3 pg (28.0-33.3); Mean Corpuscular Volume 98.4 fL (83.0-100.0); Mean Platelet Volume 12.5 fL (9.4-12.4); Platelet Count 175 K/mcL (140-400); Red Blood Count 3.71 M/mcL (3.82-4.97); White Blood Count 7.2 K/mcL (4.3-11.1)
[2021-06-07 14:35] LABS: INR 1.4
[2021-06-07 14:38] LABS: Activated Partial Thrombo Time 32.4 Seconds (26.0-36.0)
[2021-06-07] MEDS: carvediloL 6.25 MG TABLET PO SCH (15:38)
[2021-06-08 05:53] LABS: Hematocrit 35.4 % (35.3-44.9); Hemoglobin 10.9 g/dL (11.5-15.4); Mean Corpuscular HGB Conc 30.8 g/dL (31.6-35.5); Mean Corpuscular Hemoglobin 30.7 pg (28.0-33.3); Mean Corpuscular Volume 99.7 fL (83.0-100.0); Mean Platelet Volume 12.6 fL (9.4-12.4); Platelet Count 171 K/mcL (140-400); Red Blood Count 3.55 M/mcL (3.82-4.97); Red Cell Distribution Width 12.8 % (11.5-14.5); White Blood Count 6.3 K/mcL (4.3-11.1)
[2021-06-08 06:35] LABS: BUN/Creatinine Ratio 15 (6-26); Blood Urea Nitrogen 11 mg/dL (8-23); Calcium 9.5 mg/dL (8.6-10.3); Carbon Dioxide 23 mEq/L (23-29); Chloride 110 mEq/L (98-107); Glucose 98 mg/dL (70-105); Osmolality,Calculated 289 (280-300); Potassium 3.7 mEq/L (3.5-5.1); Sodium 140 mEq/L (136-145); eGFR For African Americans > 60 (> 60); eGFR For Non-African Americans > 60 (> 60)
[2021-06-08] MEDS: Aspirin Enteric Coated 81 MG Tablet PO SCH (07:44)
[2021-06-08] MEDS: carvediloL 6.25 MG TABLET PO SCH (07:44)
[2021-06-08] MEDS: Magnesium Oxide 400 MG TABLET PO SCH (07:44)
[2021-06-08] MEDS: *HR* HYDROmorphone (PF) 1 MG/ML SYRINGE IVP PRN (07:45)
[2021-06-08] MEDS ORDERED: Furosemide 20 MG TABLET PO SCH (09:00)
[2021-06-08] MEDS ORDERED: Cyanocobalamin (B-12) 1,000 MCG TABLET PO SCH (09:00)
[2021-06-08] MEDS ORDERED: Vancomycin 1,000 MG VIAL ONE (10:45)
[2021-06-08] MEDS ORDERED: Ethanol\\Acetic Acid\\Na Ace\\Ben 1,000 ML IRRIG.SOLN IR ONE (11:35)
[2021-06-08] MEDS ORDERED: Gentamicin 250 MG in 0.9 % Sodium Chloride 100 ML IVPB ONE (12:00)
[2021-06-08] MEDS ORDERED: ALPRAZolam 0.25 MG TABLET PO PRN (12:13)
[2021-06-08 16:12] LABS: Hematocrit 35.5 % (35.3-44.9); Hemoglobin 11.4 g/dL (11.5-15.4); Mean Corpuscular HGB Conc 32.1 g/dL (31.6-35.5); Mean Corpuscular Hemoglobin 31.1 pg (28.0-33.3); Mean Corpuscular Volume 96.7 fL (83.0-100.0); Mean Platelet Volume 12.4 fL (9.4-12.4); Platelet Count 187 K/mcL (140-400); Red Blood Count 3.67 M/mcL (3.82-4.97); Red Cell Distribution Width 13.2 % (11.5-14.5)
[2021-06-08 16:17] LABS: White Blood Count 11.9 K/mcL (4.3-11.1)
[2021-06-08 19:27] LABS: Basophils # 0.1 K/mcL (0.0-0.2); Basophils % 0.3 %; Hematocrit 38.6 % (35.3-44.9); Hemoglobin 12.3 g/dL (11.5-15.4); Immature Granulocytes % 0.5 % (0-4); Lymphocytes % 6.6 %; Mean Corpuscular HGB Conc 31.9 g/dL (31.6-35.5); Mean Corpuscular Hemoglobin 30.9 pg (28.0-33.3); Mean Platelet Volume 13.3 fL (9.4-12.4); Monocytes # 0.7 K/mcL (0.0-1.3); Monocytes % 4.3 %; Neutrophils # 13.7 K/mcL (1.6-8.9); Nucleated Red Blood Cells 0.1 /100 WBC (0); Platelet Count 168 K/mcL (140-400); Red Blood Count 3.98 M/mcL (3.82-4.97); Red Cell Distribution Width 13.7 % (11.5-14.5); Segmented Neutrophils % 88.3 %; White Blood Count 15.5 K/mcL (4.3-11.1)
[2021-06-08 20:04] LABS: Troponin I 0.04 ng/mL (< 0.04)
[2021-06-08] MEDS ORDERED: Ringers Solution, Lactated 1,000 ML ONE (20:59)
[2021-06-08] MEDS ORDERED: Ondansetron 4 MG/2 ML VIAL IVP PRN ×2 (23:08)
[2021-06-08] MEDS ORDERED: *HR* Promethazine 25 MG/ML VIAL IM PRN (23:08)
[2021-06-08] MEDS ORDERED: *HR* HYDROmorphone (PF) 1 MG/ML SYRINGE IVP PRN (23:08)
[2021-06-08] MEDS ORDERED: Ringers Solution, Lactated 1,000 ML IVC SCH (23:08)
[2021-06-08] MEDS ORDERED: Naloxone 0.4 MG/ML INJ IVP PRN (23:08)
[2021-06-08] MEDS ORDERED: Perflutren Lipid Microsphere 1.3 ML in 0.9 % Sodium Chloride 8.7 ML IVP PRN (23:08)
[2021-06-08 23:35] LABS: Hematocrit 36.3 % (35.3-44.9); Hemoglobin 12.1 g/dL (11.5-15.4); Mean Corpuscular HGB Conc 33.3 g/dL (31.6-35.5); Mean Corpuscular Hemoglobin 31.3 pg (28.0-33.3); Mean Corpuscular Volume 93.8 fL (83.0-100.0); Mean Platelet Volume 12.3 fL (9.4-12.4); Platelet Count 149 K/mcL (140-400); Red Blood Count 3.87 M/mcL (3.82-4.97); Red Cell Distribution Width 14.4 % (11.5-14.5); White Blood Count 12.4 K/mcL (4.3-11.1)
[2021-06-09] MEDS: tiZANidine 4 MG TABLET PO PRN ×2 (00:14→19:42)
[2021-06-09] MEDS: CeFAZolin 2 GM/120 ML BAG IVPB SCH ×3 (00:29→17:22)
[2021-06-09 07:22] LABS: Calcium 8.8 mg/dL (8.6-10.3); Potassium 3.9 mEq/L (3.5-5.1)
[2021-06-09] MEDS: Magnesium Oxide 400 MG TABLET PO SCH (08:19)
[2021-06-09] MEDS: Ascorbic Acid 500 MG TABLET PO SCH ×2 (08:19→16:36)
[2021-06-09] MEDS: Multivit/Ca/Min/Fe/FA 1 TAB TABLET PO SCH (08:19)
[2021-06-09] MEDS: carvediloL 6.25 MG TABLET PO SCH ×2 (08:19→16:36)
[2021-06-09] MEDS: Aspirin Enteric Coated 81 MG Tablet PO SCH (08:19)
[2021-06-09] MEDS: Cyanocobalamin (B-12) 1,000 MCG TABLET PO SCH (08:20)
[2021-06-09] MEDS: Furosemide 20 MG TABLET PO SCH (08:20)
[2021-06-09 10:38] LABS: Hematocrit 32.7 % (35.3-44.9); Hemoglobin 10.7 g/dL (11.5-15.4); Mean Corpuscular HGB Conc 32.7 g/dL (31.6-35.5); Mean Corpuscular Hemoglobin 30.6 pg (28.0-33.3); Mean Corpuscular Volume 93.4 fL (83.0-100.0); Mean Platelet Volume 12.9 fL (9.4-12.4); Platelet Count 147 K/mcL (140-400); Red Cell Distribution Width 14.9 % (11.5-14.5); White Blood Count 10.6 K/mcL (4.3-11.1)
[2021-06-09] MEDS: ALPRAZolam 0.25 MG TABLET PO PRN (12:53)
[2021-06-09] MEDS: Acetaminophen 325 MG TABLET PO PRN (19:42)
[2021-06-09] MEDS: Sennosides/Docusate Sodium TABLET PO SCH (20:38)
[2021-06-10] MEDS: CeFAZolin 2 GM/120 ML BAG IVPB SCH ×4 (00:16→23:07)
[2021-06-10 07:29] LABS: Hematocrit 27.1 % (35.3-44.9); Hemoglobin 9.1 g/dL (11.5-15.4); Mean Corpuscular HGB Conc 33.6 g/dL (31.6-35.5); Mean Corpuscular Hemoglobin 31.6 pg (28.0-33.3); Mean Corpuscular Volume 94.1 fL (83.0-100.0); Mean Platelet Volume 12.5 fL (9.4-12.4); Platelet Count 131 K/mcL (140-400); Red Blood Count 2.88 M/mcL (3.82-4.97); Red Cell Distribution Width 14.6 % (11.5-14.5); White Blood Count 8.7 K/mcL (4.3-11.1)
[2021-06-10 07:53] LABS: Calcium 9.3 mg/dL (8.6-10.3)
[2021-06-10] MEDS: carvediloL 6.25 MG TABLET PO SCH ×2 (08:32→16:17)
[2021-06-10] MEDS: Aspirin Enteric Coated 81 MG Tablet PO SCH (08:33)
[2021-06-10] MEDS: Sennosides/Docusate Sodium TABLET PO SCH ×2 (08:33→20:12)
[2021-06-10] MEDS: Cyanocobalamin (B-12) 1,000 MCG TABLET PO SCH (08:33)
[2021-06-10] MEDS: Multivit/Ca/Min/Fe/FA 1 TAB TABLET PO SCH (08:33)
[2021-06-10] MEDS: Ascorbic Acid 500 MG TABLET PO SCH ×2 (08:33→16:25)
[2021-06-10] MEDS: polyethylene glycoL 3350 17 GM POWD.PACK PO SCH (08:34)
[2021-06-10] MEDS: Magnesium Oxide 400 MG TABLET PO SCH (08:34)
[2021-06-10] MEDS: Furosemide 20 MG TABLET PO SCH (08:52)
[2021-06-10] MEDS: Furosemide 40 MG TABLET PO SCH (08:57)
[2021-06-10] MEDS ORDERED: Multivit/Ca/Min/Fe/FA 1 TAB TABLET PO SCH (09:00)
[2021-06-10] MEDS ORDERED: Aspirin Enteric Coated 81 MG Tablet PO SCH (09:00)
[2021-06-11 06:47] LABS: Hemoglobin 8.8 g/dL (11.5-15.4); Mean Corpuscular HGB Conc 32.6 g/dL (31.6-35.5); Mean Corpuscular Hemoglobin 30.9 pg (28.0-33.3); Mean Corpuscular Volume 94.7 fL (83.0-100.0); Platelet Count 148 K/mcL (140-400); Red Blood Count 2.85 M/mcL (3.82-4.97); Red Cell Distribution Width 14.4 % (11.5-14.5); White Blood Count 8.7 K/mcL (4.3-11.1)
[2021-06-11 07:08] LABS: BUN/Creatinine Ratio 17 (6-26); Blood Urea Nitrogen 15 mg/dL (8-23); Calcium 9.3 mg/dL (8.6-10.3); Carbon Dioxide 28 mEq/L (23-29); Chloride 106 mEq/L (98-107); Glucose 118 mg/dL (70-105); Osmolality,Calculated 292 (280-300); Potassium 3.8 mEq/L (3.5-5.1); Sodium 140 mEq/L (136-145); eGFR For African Americans > 60 (> 60); eGFR For Non-African Americans > 60 (> 60)
[2021-06-11] MEDS: Aspirin Enteric Coated 81 MG Tablet PO SCH (08:05)
[2021-06-11] MEDS: Ascorbic Acid 500 MG TABLET PO SCH ×2 (08:05→15:37)
[2021-06-11] MEDS: ALPRAZolam 0.25 MG TABLET PO PRN (08:05)
[2021-06-11] MEDS: carvediloL 6.25 MG TABLET PO SCH ×2 (08:05→17:28)
[2021-06-11] MEDS: Magnesium Oxide 400 MG TABLET PO SCH (08:06)
[2021-06-11] MEDS: Furosemide 40 MG TABLET PO SCH (08:06)
[2021-06-11] MEDS: Multivit/Ca/Min/Fe/FA 1 TAB TABLET PO SCH (08:06)
[2021-06-11] MEDS: Cyanocobalamin (B-12) 1,000 MCG TABLET PO SCH (08:06)
[2021-06-11] MEDS: Sennosides/Docusate Sodium TABLET PO SCH ×2 (08:07→19:19)
[2021-06-11] MEDS: polyethylene glycoL 3350 17 GM POWD.PACK PO SCH (08:07)
[2021-06-11] MEDS: CeFAZolin 2 GM/120 ML BAG IVPB SCH ×2 (08:28→15:45)
[2021-06-11] MEDS: tiZANidine 4 MG TABLET PO PRN (11:44)
[2021-06-11] MEDS: Acetaminophen 325 MG TABLET PO PRN (11:44)
[2021-06-11] MEDS ORDERED: 0.9 % Sodium Chloride 500 ML IV ONE (15:21)
[2021-06-11 17:51] LABS: Hematocrit 25.7 % (35.3-44.9); Hemoglobin 8.2 g/dL (11.5-15.4)
[2021-06-11 23:30] LABS: Hematocrit 26.8 % (35.3-44.9); Hemoglobin 8.7 g/dL (11.5-15.4)
[2021-06-12] MEDS: CeFAZolin 2 GM/120 ML BAG IVPB SCH ×2 (01:34→10:20)
[2021-06-12 05:34] LABS: Hematocrit 25.7 % (35.3-44.9); Hemoglobin 8.4 g/dL (11.5-15.4); Mean Corpuscular HGB Conc 32.7 g/dL (31.6-35.5); Mean Corpuscular Hemoglobin 31.3 pg (28.0-33.3); Mean Corpuscular Volume 95.9 fL (83.0-100.0); Platelet Count 191 K/mcL (140-400); Red Blood Count 2.68 M/mcL (3.82-4.97); Red Cell Distribution Width 14.4 % (11.5-14.5); White Blood Count 8.3 K/mcL (4.3-11.1)
[2021-06-12 05:49] LABS: BUN/Creatinine Ratio 16 (6-26); Blood Urea Nitrogen 16 mg/dL (8-23); Calcium 8.9 mg/dL (8.6-10.3); Carbon Dioxide 28 mEq/L (23-29); Chloride 105 mEq/L (98-107); Glucose 107 mg/dL (70-105); Osmolality,Calculated 292 (280-300); Potassium 3.4 mEq/L (3.5-5.1); Sodium 140 mEq/L (136-145); eGFR For African Americans > 60 (> 60); eGFR For Non-African Americans 54 (> 60)
[2021-06-12] MEDS ORDERED: Apixaban 5 MG TABLET PO SCH (09:00)
[2021-06-12] MEDS: Multivit/Ca/Min/Fe/FA 1 TAB TABLET PO SCH (10:19)
[2021-06-12] MEDS: Aspirin Enteric Coated 81 MG Tablet PO SCH (10:19)
[2021-06-12] MEDS: Magnesium Oxide 400 MG TABLET PO SCH (10:20)
[2021-06-12] MEDS: Ascorbic Acid 500 MG TABLET PO SCH (10:20)
[2021-06-12] MEDS: Sennosides/Docusate Sodium TABLET PO SCH (10:20)
[2021-06-12] MEDS: polyethylene glycoL 3350 17 GM POWD.PACK PO SCH (10:20)
[2021-06-12] MEDS: Cyanocobalamin (B-12) 1,000 MCG TABLET PO SCH (10:20)
[2021-06-12 11:05] VITALS: BP 144/55; PULSE 84; TEMP 98.4; O2SAT 93
[2021-06-12 12:48] LABS: Influenza A PCR Negative (Negative); Influenza B PCR Negative (Negative); Resp. Syncytial Virus PCR Negative (Negative)
[2021-06-12 12:49] LABS: SARS-CoV-2 by PCR (In House) Negative (Negative)
[2021-06-12] MEDS ORDERED: carvediloL 6.25 MG TABLET PO SCH (17:00)
== END 2021-06-12 20:24 | DRG 521 ==
LOC: EMEROOARM 13:21 → 3NENU 13:21 → SUATTDRO 22:55 → 4WAOSI 06-08 11:05 → 2NNU 06-08 22:58 → 4WAOSI 06-09 14:23
PROVIDERS: ADMIT Student in an Organized Health Care Education/Training Program; ATTEND Internal Medicine